=== PATIENT | male | born 1955 | race Caucasian/White ===

== ENCOUNTER 2017-02-14 02:13 | Emergency (ER) | payer MEDICARE ==
[~2017-02-14] VITALS: Ht 185.4 cm; Wt 81.8 kg
[~2017-02-14 02:13] MED LIST: ASPI-973 PO; HYD500 PO; HYDR500C2 PO; LIP40 PO; LISI-567 PO; METO50TA3 PO; MULT-896 PO; WARF5TAB7 PO; WARF7.5T4 PO
[2017-02-14 02:24] VITALS: BP 159/82; PULSE 95; RESP 16; O2SAT 100
--- NOTE | 2017-02-14 02:48 | ED.REPORT ---
HPI-Chest Pain 40 and Over Date of Service Feb 14, 2017 ED Provider: Ortega Parsons MD Patient is a 61 year old male with a history of PE on Warfarin, hypertension and CAD with stent placement who presents to the ED complaining of mid back pain onset 5 hours ago. Associated symptoms include nausea and feeling short of breath for the past two weeks. He describes the pain as stabbing and states that it feels similar to when he had his last PE. Nursing Notes Stated Complaint: POSSIBLE PULMONARY EMBOLI Chief Complaint: Respiratory Complaints Nursing Notes Reviewed: Yes Allergies: Coded Allergies: No Known Allergies (Unverified , 07/01/11) Scheduled Aspirin (Aspirin) 81 Mg Tablet 81 MG PO DAILY Atorvastatin (Lipitor) 40 Mg Tablet 40 MG PO DAILY Hydroxyurea (Hydrea) 500 Mg Capsule 500 MG PO BID MON-TUE Hydroxyurea (Hydroxyurea) 500 Mg Capsule 500 MG PO SAT AND SUN Lisinopril (Lisinopril) 20 Mg Tablet 20 MG PO DAILY Metoprolol Tartrate (Metoprolol Tartrate) 50 Mg Tablet 50 MG PO QDAY Warfarin Sodium (Warfarin Sodium) 7.5 Mg Tablet 7.5 MG PO 4 DYS A WEEK Warfarin Sodium (Warfarin Sodium) 5 Mg Tablet 5 MG PO 2DYS A WEEK Miscellaneous Medications Multivitamin W-Minerals/Lutein (Centrum Silver Ultra Men's Tab) 1 Each Tablet 1 EACH PO General Time Seen by MD: 02:42 Chief Complaint Back pain Hx Obtained From: Patient Arrived By: Walk-in Sudden in Onset?: Yes Onset Occurred: 5 - 8 hours ago Symptom Duration: Since onset Location: : Back Quality: Stabbing Radiation: : Does not radiate Severity: Current: Moderate Similar Sx Previous: Yes Past Medical History Past Medical History Notes: Medical History: 1. Myocardial infarction, status post 2 stents placed 2. Diverticulosis with one episode of diverticulitis 3 years ago 3. Frequent left shoulder dislocations, occasional right shoulder dislocations Surgical history: 1. Coronary artery stents x2 2. The patient endorses he had a "permanent valve" placed in his right femoral vein for cardiac catheter access 3. Bilateral inguinal herniorrhaphies Past Medical History 1. Coronary artery disease. 2. Angioplasty to the mid left anterior descending. 3. Angioplasty to the diagonal branch of left anterior descending. 4. Hypertension. 5. Hyperlipidemia. 6. History of smoking. 7. History of low back pain. Past Surgical History Cardiac Cath Family History noncontributory Smoking History Current Some Day Smoker Social History Alcohol Use: Denies alcohol use Drug Use: THC Ambulatory Status Independent Review of Systems Constitutional: Denies: Chills, Fever Respiratory: Reports: Shortness of breath, Denies: Non-productive cough GI: Reports: Nausea, Denies: Vomiting Musculoskeletal: Reports: Back pain Skin: Denies Itching, Denies Rash Complete sys rev & neg: except as marked. Physical Exam Initial Vital Signs Vital Signs (First) Date Time Temp Pulse Resp B/P Pulse Ox O2 Delivery O2 Flow Rate FiO2 02/14/17 02:24 36.6 95 16 159/82 100 Room Air 02/14/17 06:20 2 Initial VS: Reviewed General/Constitutional: Awake, Alert Appearance / Presentation: Positive: Uncomfortable Respiratory / Chest: Atraumatic, Breath sounds NL, Breath sounds = bilat, No respiratory distress Cardiovascular: Heart rate NL, Regular rhythm, Heart sounds NL Abdomen: Atraumatic, Soft, Non-tender Neck: Atraumatic, Supple, No JVD Lower Extremity / Pelvis / MS: Atraumatic, No swelling, Non-tender, No edema negative Jazmin's Skin: Atraumatic, Color NL, No rash, Warm, Dry Neurologic: Oriented X3, Speech NL Psychiatric: Affect NL, Mood NL Head / Eyes: Atraumatic, Normocephalic, PERRL, EOMI Interpretation & Diagnostics Lab Results Interpretation Result Diagram: 02/14/17 0230 02/14/17 0230 Test 02/14/17 02:30 White Blood Count 6.9th/mm3 (3.8-10.1) Red Blood Count 2.43mil/mm3 (4.40-5.80) Hemoglobin 9.3g/dL (13.8-17.2) Hematocrit 27.2% (41.0-50.0) Mean Corpuscular Volume 111.9fL (81-100) Mean Corpuscular Hemoglobin 38.3pg (27.0-35.0) Mean Corpuscular Hemoglobin Concent 34.2% (32.0-37.0) Red Cell Distribution Width 16.2% (12.3-15.4) Platelet Count 132bil/L (150-400) Neutrophils (%) (Auto) 56% (40-74) Lymphocytes (%) (Auto) 26% (14-46) Monocytes (%) (Auto) 9% (4-12) Eosinophils (%) (Auto) 1% (0-5) Basophils (%) (Auto) 3% (0-3) Band Neutrophils % 0% (1-5) Metamyelocytes % 0% (0-0) Myelocytes % 5% (0-0) Nucleated Red Blood Cells 3/100 WBC (0-24) Prothrombin Time 16.1sec (8.1-12.5) Prothromb Time International Ratio 1.49ratio D-Dimer < 0.50mg/L FEU (<0.50) Sodium Level 134mEq/L (134-144) Potassium Level 4.2mEq/L (3.5-5.2) Chloride Level 97mEq/L (97-108) Carbon Dioxide Level 20mmol/L (18-29) Blood Urea Nitrogen 23mg/dL (8-27) Creatinine 0.99mg/dL (0.76-1.27) Estimat Glomerular Filtration Rate 81mL/min (>59) Glucose Level 139mg/dL (60-99) Calcium Level 9.7mg/dL (8.5-10.1) Magnesium Level 1.6mg/dL (1.6-2.6) Total Bilirubin 0.4mg/dL (0.0-1.2) Aspartate Amino Transf (AST/SGOT) 11U/L (0-50) Alanine Aminotransferase (ALT/SGPT) 13U/L (0-44) Alkaline Phosphatase 92U/L (25-160) Troponin T 0.010ug/L (0.0-0.011) Total Protein 7.1g/dL (6.4-8.4) Albumin 4.1g/dL (3.4-5.0) Hold Beltre Top Tube Received (Received) Lab Results Interpretation: Mild anemia ECG Interpretation Time: 02:30 Interpreted by: ED physician Normal ECG Interpretation: Normal rate (95), Normal sinus rhythm X-Ray Chest Interpretation Chest Xray Interpretation: no acute findings Interpretation / Wet Read by: Wet read ED physician CT Chest Interpretation CONCLUSION: No evidence of PE, with limited evaluation of the distal subsegmental pulmonary artery branches. Mild centrilobular emphsema. Partial bronchiolar occulsion in the lateral right lower lobe, likely mucous plugging. Endobronchial spread of infectin is not excluded. Left periadrenal fat stranding, raising concern for acute adrenalitis. at 0501 Study type: CT pulm angiogram Interpretation / Wet Read by: Interpret - Radiologist Re-Eval/Medical Decision Med Decision/Clinical Course 61-year-old male with pleuritic chest pain that he states feels like his previous pulmonary embolism. His INR is a subtherapeutic at 1.5. His d-dimer is negative and his chest CT scan shows no evidence of PE. There are some areas of bronchial mucus plugging. He will be started on an antibiotic and discharged home to follow up with his primary doctor. Counseled Regarding: Diagnosis, Lab results Discharge & Departure Primary Impression: Back pain Back pain location: low back pain Chronicity: acute Back pain laterality: midline Sciatica presence: without sciatica Qualified Code: M54.5 - Low back pain Additional Impression: Shortness of breath Disposition: Home Discharge Condition All VS Reviewed: Yes Condition: Stable Patient Instructions: Chronic Bronchitis (ED) Additional Instructions: Your CT showed no evidence of a blood clot. There was an area of mucus which may represent bronchitis. Recommend azithromycin 500 mg today then 250 mg daily for 4 more days. Follow up with your primary care physician later this week. Return to the emergency department if you develop any new or concerning symptoms. Referrals: Jarrell Gonzalez MD (PCP) [place] Attestation Portions of this note were transcribed by Dixie Armijo. I, Dr. Parsons personally performed the history, physical exam and medical decision-making; I reviewed and confirmed the accuracy of the information in the transcribed note. Signed by: Wally Bravo, 02/14/17 copies to: Jarrell Gonzalez MD, Howard L MD Feb 14, 2017 02:47 Asha Armijo Feb 14, 2017 02:56
[2017-02-14 02:51] LABS: Mean Corpuscular Hemoglobin 38.3 pg (27.0-35.0); Mean Corpuscular Volume 111.9 fL (81-100); Platelet Count 132 bil/L (150-400)
[2017-02-14 03:07] VITALS: BP 143/79; PULSE 94; RESP 17; O2SAT 100
[2017-02-14 03:09] LABS: INR 1.49 ratio
[2017-02-14 03:17] LABS: BASOPHILS % (AUTO) 3 % (0-3); EOSINOPHILS % (AUTO) 1 % (0-5); MONOCYTES % (AUTO) 9 % (4-12); NEUTROPHILS % (AUTO) 56 % (40-74)
[2017-02-14 03:21] LABS: Magnesium 1.6 mg/dL (1.6-2.6); TROPONIN T 0.01 ug/L (0.0-0.011)
[2017-02-14] MEDS: HYDROmorphone 0.5 mg/0.5 mL iSecure Syringe IVPUSH PRN ×4 (04:02→06:21)
[2017-02-14] MEDS ORDERED: Ondansetron 2 mg/mL 2 mL Inj ONE (04:45)
[2017-02-14 04:49] VITALS: BP 110/71; PULSE 106; RESP 17; O2SAT 100
[2017-02-14] MEDS ORDERED: Ondansetron 2 mg/mL 2 mL Inj IVPUSH PRN (05:15)
[2017-02-14 06:20] VITALS: BP 136/67; PULSE 102; RESP 22; O2SAT 99
[2017-02-14] MEDS ORDERED: _Azithromycin 250 mg Tablet PO SCH (06:30)
[2017-02-14 08:03] VITALS: BP 122/60; PULSE 82; RESP 22; O2SAT 96
--- NOTE | 2017-02-14 08:19 | DRSVH ---
PROCEDURE: CT ANGIO CHEST PULMONARY EMBOLISM ([id number]) INDICATIONS: dyspnea, chest pain TECHNIQUE: After the administration of intravenous contrast, 2 mm thick sections acquired from the pulmonary [facility] [place] to the posterior costophrenic angles. 3-dimensional maximum intensity projection (MIP) coronal a nd sagittal reformats were then acquired through the thorax. For radiation dose reduction, the follo wing was used: automated exposure control, adjustment of mA and/or kV according to patient size. COMPARISON: [facility], CT, CT ABD PELVIS W CON, 05[facility]11/2015, 1:26[facility]ST PE, 05/11/2015, 1:26. FINDINGS: Image quality: Excellent. Pulmonary arteries: Pulmonary arteries are normal in size, and demonstrate no intraluminal filling d efects to suggest central pulmonary embolism. Lungs and pleura: There is moderate centrilobular emphysema. There is a 3 mm groundglass nodule in t he right lower lobe (series 5 image 31), unchanged compared to 05/11/2015. Mild bibasilar atelectasis . Lungs are otherwise clear. No pleural effusions or pneumothorax. Central and peripheral airways a re patent. Mediastinum: Heart size is normal, without pericardial effusion. No mediastinal or hilar adenopathy . Thoracic aorta is normal in caliber and enhancement. Esophagus is normal in caliber. There is a s mall hiatal hernia. Bones and chest wall: No suspicious bony lesions. Ribs and thoracic spine appear intact throughout. Thyroid gland is normal. No axillary or supraclavicular adenopathy. Abdomen: Visualized upper abdominal solid organs appear normal in the early arterial phase of enhanc ement. Mild stranding in left adrenal and superior pole of the left kidney, which is nonspecific. IMPRESSION: 1. No evidence for central pulmonary embolism. 2. Moderate centrilobular emphysema. 3. A 3 mm groundglass nodule in the right lower lobe, stable since 05/11/2015. Please recommendation for followup. 4. Small hiatal hernia. 5. Mild stranding around the left adrenal/superior pole of the left kidney. This finding is nonspecif ic. No significant discrepancy with the caustic cresylate shift superintendent radiology preliminary report. Fleischner Society criteria for SUB-SOLID lung nodule followup. Solitary pure ground-glass nodules5 mm or lessNo followup needed. >5 mm3 mo follow-up CT to confirm persistence. Then annual CT for 3 years. Part-solid nodules3 mo follow-up CT to confirm persistence . If persistent with solid component <5 mm, annual CT for at least 3 years. If solid component is 5 mm or more, biopsy or surgical resection. Consider PET-CT for lesions > 10 mm. Multiple sub-solid nodulesPure ground glass nodules [address] at 2 and 4 years. Pure ground glass nodules >5 mm without dominant lesion. [address] to confirm persistence, then annual followup CT for at least 3 years. Dominant nodule(s) with part-solid or solid component. [address] to confirm persistence. If persistent, consider biopsy or surgical resection, karsten if lesions have >5 m m solid component. Dictated by: Jose Regan M.D. on 02/14/2017 at 8:07 Transcribed by: [place] on 02/14/2017 at 8:19 Approved by: Jose Regan M.D. on 02/14/2017 at 11:02
--- NOTE | 2017-02-14 14:43 | DRSVH ---
PROCEDURE: X-RAY CHEST ONE VIEW, PORTABLE ([id number]) INDICATIONS: sob TECHNIQUE: One view of the chest was acquired. COMPARISON: [facility], CR, XR CHEST 1VW (PORTABLE), 06/15/2015, 18:22. FINDINGS: Surgical changes and devices: None. Lungs and pleura: No pleural effusions or pneumothorax. Lungs are clear. Lung volumes are increase d with flattening of the hemidiaphragms suggesting COPD. Mediastinum: Mediastinal contours appear normal. Heart size is normal. Bones and chest wall: No suspicious bony lesions. Overlying soft tissues appear unremarkable. IMPRESSION: No acute cardiopulmonary disease. Dictated by: [facility] Interpreted: Carson Vance MD on 02/14/2017 at 9:37 Approved by: Carson Vance M.D. on 02/14/2017 at 14:41
[2017-02-15] MEDS ORDERED: MULT-1073 PO (09:09)
[2017-02-15] MEDS ORDERED: VIT1TABL83 PO (09:09)
[2017-02-15] MEDS ORDERED: GRAP50CA5 PO (09:09)
[2017-02-15] MEDS ORDERED: ASTR1POW PO (09:09)
== END 2017-02-14 08:13 | disposition home or self-care (01) ==
LOC: SED 02:13
DX: M54.5 Low back pain (principal); R06.02 Shortness of breath; R07.81 Pleurodynia; I25.10 Atherosclerotic heart disease of native coronary artery without angina pectoris; E78.5 Hyperlipidemia, unspecified; I10 Essential (primary) hypertension; F12.10 Cannabis abuse, uncomplicated; F17.210 Nicotine dependence, cigarettes, uncomplicated; Z95.5 Presence of coronary angioplasty implant and graft; Z86.711 Personal history of pulmonary embolism; Z87.19 Personal history of other diseases of the digestive system
CPT/HCPCS: 71010; 71275; 80053; 83735; 84484; 85025; 85378; 85610; 93005; 96374; 96375; 96376; 99285; J1170; J2060; J2405; Q9967

== ENCOUNTER 2017-02-15 00:03 | Inpatient (IN) | payer MEDICARE ==
[~2017-02-15] VITALS: Ht 182.9 cm; Wt 89.2 kg
[2017-02-15] VITALS (12 sets, daily range): BP systolic 131–171; BP diastolic 74–109; PULSE 74–111; RESP 16–22; O2SAT 96–100
[2017-02-15] MEDS ORDERED: 0.9% Sodium Chloride 1,000 ML IV ONE (00:23)
--- NOTE | 2017-02-15 00:23 | ED.REPORT ---
HPI-Back Pain 40 and Over Date of Service Feb 15, 2017 ED Provider: Dr. Reynolds Pt is a 61 year old male with a hx of PEs who presents to the ED with severe back pain. He reports that he was seen in the ED yesterday morning, and was diagnosed with a respiratory infection and discharged with antibiotics. Pt reports that he has had no relief, and is in continued pain. He reports that was seen by his primary care provider yesterday for his continued pain, but was not given any additional pain medication. He denies any chest pain, shortness of breath, nausea, vomiting, diarrhea, or any other complaints. The pain in his back does not hurt with palpation or deep breathing. Nursing Notes Stated Complaint: BACK PAIN Chief Complaint: Back Pain or Injury Nursing Notes Reviewed: Yes Allergies: Coded Allergies: No Known Allergies (Unverified , 07/01/11) Scheduled Aspirin (Aspirin) 81 Mg Tablet 81 MG PO DAILY Atorvastatin (Lipitor) 40 Mg Tablet 40 MG PO DAILY Hydroxyurea (Hydrea) 500 Mg Capsule 500 MG PO BID MON-TUE Hydroxyurea (Hydroxyurea) 500 Mg Capsule 500 MG PO SAT AND SUN Lisinopril (Lisinopril) 20 Mg Tablet 20 MG PO DAILY Metoprolol Tartrate (Metoprolol Tartrate) 50 Mg Tablet 50 MG PO QDAY Warfarin Sodium (Warfarin Sodium) 7.5 Mg Tablet 7.5 MG PO 4 DYS A WEEK Warfarin Sodium (Warfarin Sodium) 5 Mg Tablet 5 MG PO 2DYS A WEEK Miscellaneous Medications Multivitamin W-Minerals/Lutein (Centrum Silver Ultra Men's Tab) 1 Each Tablet 1 EACH PO General Time Seen by MD: 00:23 Chief Complaint Back pain Hx Obtained From: Patient Arrived By: Walk-in Sudden in Onset?: Yes Onset Occurred: 3 days ago Symptom Duration: Since onset Quality: Painful Severity: Current: Moderate Severity: Maximum: Severe Similar Sx Previous: Yes Past Medical History Past Medical History Notes: Medical History: 1. Myocardial infarction, status post 2 stents placed 2. Diverticulosis with one episode of diverticulitis 3 years ago 3. Frequent left shoulder dislocations, occasional right shoulder dislocations Surgical history: 1. Coronary artery stents x2 2. The patient endorses he had a "permanent valve" placed in his right femoral vein for cardiac catheter access 3. Bilateral inguinal herniorrhaphies Past Medical History 1. Coronary artery disease. 2. Angioplasty to the mid left anterior descending. 3. Angioplasty to the diagonal branch of left anterior descending. 4. Hypertension. 5. Hyperlipidemia. 6. History of smoking. 7. History of low back pain. Past Surgical History Cardiac Cath Family History noncontributory Smoking History Current Some Day Smoker Social History Alcohol Use: Denies alcohol use Drug Use: THC Ambulatory Status Independent Review of Systems Constitutional: Denies: Chills, Fever, Malaise, Weakness - generalized Respiratory: Denies: Non-productive cough, Shortness of breath, Wheezing Cardiovascular: Denies: Chest pain, Syncope GI: Denies: Abdominal pain, Diarrhea, Nausea, Vomiting Male: Denies Dysuria, Denies Flank pain Musculoskeletal: Reports: Back pain, Denies: Extremity pain, Neck pain Neurologic: Denies: Change LOC, Dizziness, Headache, Syncope, Weakness Complete sys rev & neg: except as marked. Physical Exam Initial Vital Signs Vital Signs (First) Date Time Temp Pulse Resp B/P Pulse Ox O2 Delivery O2 Flow Rate FiO2 02/15/17 00:07 36.7 111 22 131/80 99 Room Air Initial VS: Reviewed Head / Eyes: Atraumatic, Normocephalic, PERRL ENT: Mucous membranes moist, Conjunctiva normal, No scleral icterus Neck: Supple, Non-tender, Full range of motion Skin: Warm, Dry, No cyanosis General/Constitutional: Awake, Alert Distress / Hydration: Positive: Distress moderate Appearance / Presentation: Positive: Uncomfortable Writhing Respiratory / Chest: Atraumatic, Breath sounds NL, Breath sounds = bilat, No respiratory distress Cardiovascular: Heart rate NL, Regular rhythm, Heart sounds NL, No gallop Abdomen: Atraumatic, Soft, Non-tender Back: Atraumatic, Inspection NL Neurologic: Oriented X3, Speech NL, No sensory deficits, CN II - XII intact Interpretation & Diagnostics Lab Results Interpretation Result Diagram: 02/15/174 02/15/174 Test 02/15/17 00:54 White Blood Count 6.4th/mm3 (3.8-10.1) Red Blood Count 2.19mil/mm3 (4.40-5.80) Hemoglobin 8.3g/dL (13.8-17.2) Hematocrit 24.4% (41.0-50.0) Mean Corpuscular Volume 111.4fL (81-100) Mean Corpuscular Hemoglobin 37.9pg (27.0-35.0) Mean Corpuscular Hemoglobin Concent 34.0% (32.0-37.0) Red Cell Distribution Width 16.1% (12.3-15.4) Platelet Count 117bil/L (150-400) Neutrophils (%) (Auto) 66% (40-74) Lymphocytes (%) (Auto) 18% (14-46) Monocytes (%) (Auto) 11% (4-12) Eosinophils (%) (Auto) 0% (0-5) Basophils (%) (Auto) 1% (0-3) Band Neutrophils % 4% (1-5) Hematology Comments Wbc Prothrombin Time 16.5sec (8.1-12.5) Prothromb Time International Ratio 1.53ratio Sodium Level 139mEq/L (134-144) Potassium Level 3.8mEq/L (3.5-5.2) Chloride Level 101mEq/L (97-108) Carbon Dioxide Level 20mmol/L (18-29) Blood Urea Nitrogen 18mg/dL (8-27) Creatinine 0.91mg/dL (0.76-1.27) Estimat Glomerular Filtration Rate 90mL/min (>59) Glucose Level 129mg/dL (60-99) Lactic Acid Level 1.3mmol/L (0.4-2.0) Calcium Level 9.6mg/dL (8.5-10.1) Magnesium Level 1.6mg/dL (1.6-2.6) Total Bilirubin 0.4mg/dL (0.0-1.2) Aspartate Amino Transf (AST/SGOT) 16U/L (0-50) Alanine Aminotransferase (ALT/SGPT) 12U/L (0-44) Alkaline Phosphatase 88U/L (25-160) Troponin T 0.010ug/L (0.0-0.011) Total Protein 7.0g/dL (6.4-8.4) Albumin 3.9g/dL (3.4-5.0) ECG Interpretation ECG Interpretation: SR - 98 Q waves in V1 and V2 Unchanged from prior Time: 00:47 Interpreted by: ED physician Normal ECG Interpretation: No acute ischemic changes Re-Eval/Medical Decision Med Decision/Clinical Course SIgnificant flank pain. Will proceed to ct scan if labs look good. CAre endorsed to Dr. Parsons at 02:00 Source of Hx: Old records Counseled Regarding: Diagnosis, Lab results, When/why to return to ED Discharge & Departure Shift Change Sign-Out Patient Care Transferred: Yes (Dr Parsons) Discussed Complaint(s): Yes Laboratory Evaluation: Ordered, not yet done Imaging Studies: Ordered, not yet done Response to Therapy: Improved Impression: Primary Impression: Flank pain, acute Disposition: Home Discharge Condition All VS Reviewed: Yes Condition: Stable Referrals: Jarrell Gonzalez MD (PCP) Scribe Attestation Portions of this note were transcribed by Audrey Hernandez. I, Dr. Reynolds personally performed the history, physical exam and medical decision-making; I reviewed and confirmed the accuracy of the information in the transcribed note. Signed by: Wally Brown, 02/15/2017 [Time]. copies to: Jarrell Gonzalez MD, Todd P DO Feb 15, 2017 00:23 YEFRI HERNANDEZ Feb 15, 2017 00:37
[2017-02-15] MEDS ORDERED: Ondansetron 2 mg/mL 2 mL Inj IVPUSH PRN ×2 (00:45→04:35)
[2017-02-15 00:57] LABS: Mean Corpuscular Hemoglobin 37.9 pg (27.0-35.0); Mean Corpuscular Volume 111.4 fL (81-100); Platelet Count 117 bil/L (150-400)
[2017-02-15] MEDS: HYDROmorphone 0.5 mg/0.5 mL iSecure Syringe IVPUSH PRN ×4 (00:57→04:21)
[2017-02-15 01:13] LABS: INR 1.53 ratio
[2017-02-15 01:36] LABS: Magnesium 1.6 mg/dL (1.6-2.6); TROPONIN T 0.01 ug/L (0.0-0.011)
[2017-02-15] MEDS ORDERED: Iohexol 300 mg/mL 30 mL Inj PO ONE (01:40)
[2017-02-15 01:41] LABS: BASOPHILS % (AUTO) 1 % (0-3); EOSINOPHILS % (AUTO) 0 % (0-5); MONOCYTES % (AUTO) 11 % (4-12); NEUTROPHILS % (AUTO) 66 % (40-74)
[2017-02-15 03:24] LABS: APPEARANCE,URINE HAZY (CLEAR,HAZY); COLOR,URINE YELLOW (YELLOW); OCCULT BLOOD,URINE TRACE (NEGATIVE); UROBILINOGEN,URINE NORMAL (NORMAL)
[2017-02-15] MEDS ORDERED: Alum-Mag Hydrox-Simeth 30 mL Suspension PO PRN (04:35)
--- NOTE | 2017-02-15 05:03 | PCM.HPMED ---
Subjective Date of Service Feb 15, 2017 Primary Provider: Admitting Physician: Deyanira Lehman DO Primary Care Physician: Jarrell Gonzalez MD Attending Physician: Deyanira Lehman DO Admit Status: From the Emergency Department Chief Complaint: Back Pain History of Present Illness: Mr. Lay is a 61-year-old male with a prior medical history significant for pulmonary embolisms, CAD with 2 stents, hypertension, hyperlipidemia, and a myeloproliferative disorder who presented to the emergency department with ongoing back pain. He reports the pain started about 2 weeks ago and has gotten steadily worse. The pain is similar to when he had his previous PE, a constant sharp pain that does not seem to radiate elsewhere. He says the medication he received in the ED helped, but that changing positions or movements make it worse. He was seen today by his PCP Dr. Gonzalez, as well as in the [facility], where he was prescribed tramadol, but this has not helped. He endorses some nausea, but denies any chest pain, shortness of breath, vomiting, headache, pain on inspiration, or any change in bowel or bladder habits. Of note the patient was seen yesterday in the ED for similar complaints. A CT angiogram of the chest revealed no evidence of PE, but some stranding around the left adrenal gland. Review of Systems: A complete review of systems was obtained and negative except as in the above history of present illness Allergies Coded Allergies: No Known Allergies (Unverified , 07/01/11) Home Medications Aspirin (Aspirin) 81 Mg Tablet 81 MG PO DAILY Atorvastatin (Lipitor) 40 Mg Tablet 40 MG PO DAILY Hydroxyurea (Hydrea) 500 Mg Capsule 500 MG PO BID MON-TUE Hydroxyurea (Hydroxyurea) 500 Mg Capsule 500 MG PO SAT AND SUN Lisinopril (Lisinopril) 20 Mg Tablet 20 MG PO DAILY Metoprolol Tartrate (Metoprolol Tartrate) 50 Mg Tablet 50 MG PO QDAY Warfarin Sodium (Warfarin Sodium) 7.5 Mg Tablet 7.5 MG PO 4 DYS A WEEK Warfarin Sodium (Warfarin Sodium) 5 Mg Tablet 5 MG PO 2DYS A WEEK Multivitamin W-Minerals/Lutein (Centrum Silver Ultra Men's Tab) 1 Each Tablet 1 EACH PO PMH Coronary artery disease. Angioplasty to the mid left anterior descending. Angioplasty to the diagonal branch of left anterior descending. Hypertension. Hyperlipidemia. Low Back Pain Right Shoulder Dislocations Surgical History Coronary artery stents x2 Bilateral inguinal hernia repair Family History CAD Social History Hx Alcohol Use: Yes (freq) Hx Substance Use: Yes (Occasional marijuana) Hx Tobacco Use: Yes (2 cigarettes a day) Smoking Status: Current Some Day Smoker Living Arrangement: with Family Exam Vital Signs Vital Sign - Last Date Time Temp Pulse Resp B/P Pulse Ox O2 Delivery O2 Flow Rate FiO2 02/15/17 04:06 86 16 156/90 100 Room Air 02/15/17 00:07 36.7 Intake and Output 02/14/17 02/14/17 02/15/17 Cumulative From/Thru 15:00 23:00 07:00 02/15/17 00:07 - 02/15/17 00:59 Intake Total 1000 ml 1000 ml Balance 1000 ml 1000 ml Intake IV Total 1000 ml 1000 ml Exam Gen.: Restless elderly gentleman in no acute distress HEENT: NCAT, PERRLA, EOMI. Membranes pink but somewhat dry. No exudate or cobblestoning present. Neck: Supple, no JVD or thyromegaly. CV: Tachycardic in normal sinus rhythm. No murmurs, rubs, gallops. Distal pulses intact bilaterally. Pulmonary: Clear to auscultation bilaterally, no wheezes, rales, rhonchi. Abdominal: Soft, nontender non-distended. No guarding, rebound. Left flank is not tender to palpation without signs of trauma. Extremities: Distal pulses intact bilaterally. No cyanosis, clubbing, edema. MSK: No tenderness to palpation along his entire spine. Straight leg test negative. There are no signs of trauma. Neuro: A&Ox3. CN II through XII intact. Muscle strength 5 out of 5 in all extremities without focal deficit. Psych: Patient is somewhat anxious, jumping from topic to topic during our discussion but otherwise conversing appropriately. Lab and Diagnostics Result Diagram: 02/15/174 02/15/1753 X-Rays, CTs and MRIs CT Abdomen 02/15/17 CONCLUSION: Acute left adrenal hematoma measuring 2.7 x 4 x 4 cm with mild surrounding stranding. Normal right adrenal gland. Mild diverticulosis without diverticulitis. Transmitted to the ED at 03:14 by Silvio Jimenez M.D Assessment & Plan Mr. Lay is a 61-year-old male with a prior medical history significant for pulmonary embolism, CAD with 2 stents, hypertension, hyperlipidemia, and a myeloproliferative disorder who presented to the emergency department with ongoing back pain. Left adrenal hematoma with possible ongoing bleed, present on admission. Acute. Ongoing. - Patient had CT yesterday which showed left adrenal fat stranding, but now shows a 2.7 x4 x 4 cm hematoma in the region - Patient does not appear to be in adrenal insufficiency; there is no hyperpigmentation, hypotension, hyperkalemia, or hyponatremia present - Consider serum cortisol and ACTH measurement if he develops any of the above ( unlikely in unilateral hemorrhage) - H&H was 9.3/27.2 in the ED yesterday; is now 8.3/24.4 - Repeat H&H ordered; continue trending if continues to fall - Typed and crossed for 1 unit PRBC in ED - Holding aspirin, warfarin at this time. No heparin/Lovenox DVT prophylaxis ordered. - Monitor CMP for hyperkalemia and hyponatremia - Consider repeat imaging if H&H continues to fall Left Flank Pain, present on admission. Acute. Ongoing. - Likely due to hematoma as above, as this is the region he points to on exam - Hydrocodone 5-325 every 4 hours as needed, with 0.5-1 mg Dilaudid for breakthrough pain Myeloproliferative disorder, present on admission. Chronic. - Patient followed by Dr. Nieves - Continue home hydroxyurea regimen Hypertension, present on admission. Chronic. - Continue lisinopril 20 mg daily - Continue metoprolol tartrate 50 mg daily Hyperlipidemia, present on admission. Chronic. - Patient has had 2 stents placed (LAD, diagonal) - Continue atorvastatin 40 mg daily Acetaminophen as needed for mild pain, fever, headache. Bowel regimen as needed. Zofran as needed for nausea. Subcutaneous heparin held at this time. Patient status: Patient was admitted under observation status for length of stay likely <2 midnights due to severity of presenting symptoms, medical workup , and response to treatment plan. VTE Mechanical Devices: Intermittant Pneumatic CD Resuscitation Status: CPR: Attempt Resuscitation Attending Statement The patient was seen and examined together with house staff on 02/15/2017 and I agree with the history, exam and plan as outlined in the note above. Edgar Beltran DO Feb 15, 2017 05:03 Deyanira Lehman DO Feb 15, 2017 05:44
--- NOTE | 2017-02-15 06:14 | NUR ---
Admit Pt arrived on [facility] floor. Reports of Left sided sharp flank pain 12/04. States that pain has been relieved in the ED. Denies chest pain, sob, n/v or abd discomfort. Pt's VSS and has been afebrile. Continuing to monitor.
[2017-02-15 06:51] LABS: BASOPHILS % (AUTO) 1.3 % (0-3); EOSINOPHILS % (AUTO) 0.4 % (0-5); MONOCYTES % (AUTO) 17.4 % (4-12); Mean Corpuscular Hemoglobin 37.4 pg (27.0-35.0); Mean Corpuscular Volume 113.1 fL (81-100); NEUTROPHILS % (AUTO) 57.2 % (40-74); Platelet Count 96 bil/L (150-400)
[2017-02-15] MEDS: HYDROmorphone 1 mg/mL Inj IVPUSH PRN ×4 (07:59→21:32)
--- NOTE | 2017-02-15 08:56 | NUR ---
Social Work-initial assessment/ readiness for discharge: Data:See initial assessment. Pt is a 61 y/o male who was admitted on 02/15/17 for L adrenal hemorrhage per H&P. Pt's insurance is [facility] and PCP is Jarrell Gonzalez MD. EMR reviewed. SW met with pt at bedside, SW role explained. Pt is alert and oriented x3. Pt resides at home with his friend Nasrin in [place] where he remains independent with ADLS. Pt drives and does not use any DME at baseline. Pt has no HH or SNF history. Pt has no assisted care insurance or VA benefits. SW discussed DPOA/advanced directive, pt declining any information at this time. Pt discussed with RN and MD, no concerns around pt's capacity for self care, pt has been up independent in his room. SW provided pt with discharge planning checklist booklet and encouraged him to call with any questions,phone number provided on white board. Pt confirms his friend Nasrin will provide transport home. No anticipated discharge needs. SW will continue to follow if needs arise. Assessment;Pt who is independent at baseline. Plan:Pt to discharge home when medically stable via POV. No anticipated discharge needs. SW will continue to follow if needs arise. ALISE Mir Addendum: 02/15/17 at 0900 by TREVOR SANTIZO Amended: Links added.
--- NOTE | 2017-02-15 09:05 | DRSVH ---
PROCEDURE: CT ABDOMEN AND PELVIS WITH CONTRAST ([id number]) INDICATIONS: left flank pain TECHNIQUE: After the administration of oral and intravenous contrast, 5 mm thick sections acquired from the diap hragms to the symphysis. 5 mm thick coronal and sagittal reformats were performed. For radiation do se reduction, the following was used: automated exposure control, adjustment of mA and/or kV accordi ng to patient size. COMPARISON: [facility], CT, CT ABD PEL[facility] W CON[facility] 05[facility]11[facility]2015[facility], 02/14/2017, 4:15. FINDINGS: Image quality: Excellent. ABDOMEN: Lung bases: Lung bases are clear. Heart size is normal. Solid organs: Liver and spleen are normal in size and enhancement. Gallbladder is within normal khan its with some excretion of the venous contrast causing increased density.. Biliary system is non-dil ated. Pancreas enhances normally. The right adrenal gland is normal. Left adrenal gland is signific antly enlarged with density of approximately 57 Hounsfield units consistent with hemorrhagic change w ithin the left adrenal gland. The size of the left adrenal gland is approximately 4 x 4 by 2-1/2 cm. There is some stranding around this. Because of the relatively abrupt change since the previous CT sc an and lack of peripheral contrast enhancement this is unlikely to be adrenal abscess. Kidneys are no rmal in size and enhancement, without hydronephrosis. Peritoneum and bowel: Stomach, small bowel, and colon loops are normal in caliber and wall thickness . No free fluid or air. Normal appendix multiple colonic diverticula but no inflammation identified . Nodes and vessels: No retroperitoneal or mesenteric adenopathy. Aorta and inferior vena cava are no rmal in caliber. The atherosclerotic calcification and ectasia of the aorta and iliac vessels. Miscellaneous: No ventral hernias. PELVIS: Genitourinary: Bladder wall thickness is normal. Miscellaneous: No inguinal hernias or adenopathy. Bones: No suspicious bony lesions. No vertebral body compression fractures. IMPRESSION: 1. Acute left adrenal change most consistent with hemorrhagic change. Right adrenal is normal. 2. Ectasia and atherosclerosis of the aorta or to and iliac vessels. Colonic diverticula primarily sigmoid. Dictated by: Jonatan Hdz M.D. on 02/15/2017 at 8:48 this report corresponds to the findings of the preliminary NSR report. Approved by: Jonatan Hdz M.D. on 02/15/2017 at 9:03
[2017-02-15] MEDS ORDERED: ASTR1POW PO (09:09)
[2017-02-15] MEDS ORDERED: VIT1TABL83 PO (09:09)
[2017-02-15] MEDS ORDERED: GRAP50CA5 PO (09:09)
[2017-02-15] MEDS ORDERED: MULT-1073 PO (09:09)
--- NOTE | 2017-02-15 10:49 | PCM.PNMED ---
Subjective Date of Service Feb 15, 2017 Subjective Pt reports Left Flank plain. Exam Vital Signs Vital Sign - Last Date Time Temp Pulse Resp B/P Pulse Ox O2 Delivery O2 Flow Rate FiO2 02/15/17 10:42 95 02/15/17 05:03 36.7 18 171/109 96 Room Air Intake and Output 02/14/17 02/14/17 02/15/17 Cumulative From/Thru 15:00 23:00 07:00 02/15/17 00:07 - 02/15/17 06:11 Intake Total 1020 ml 1020 ml Balance 1020 ml 1020 ml Intake IV Total 1020 ml 1020 ml Exam Gen.: Restless elderly gentleman in no acute distress HEENT: NCAT, PERRLA, EOMI. Membranes pink but somewhat dry. No exudate or cobblestoning present. Neck: Supple, no JVD or thyromegaly. CV: Tachycardic in normal sinus rhythm. No murmurs, rubs, gallops. Distal pulses intact bilaterally. Pulmonary: Clear to auscultation bilaterally, no wheezes, rales, rhonchi. Abdominal: Soft, nontender non-distended. No guarding, rebound. Left flank is not tender to palpation without signs of trauma. Extremities: Distal pulses intact bilaterally. No cyanosis, clubbing, edema. MSK: No tenderness to palpation along his entire spine. Straight leg test negative. There are no signs of trauma. Neuro: A&Ox3. CN II through XII intact. Muscle strength 5 out of 5 in all extremities without focal deficit. Psych: Patient is somewhat anxious, jumping from topic to topic during our discussion but otherwise conversing appropriately. IVs and Medications Medications Reviewed: Medications were reviewed in detail Lab and Diagnostics Result Diagram: 02/15/1762402/15/17624 X-Rays, CTs and MRIs CT Abdomen 02/15/17 CONCLUSION: Acute left adrenal hematoma measuring 2.7 x 4 x 4 cm with mild surrounding stranding. Normal right adrenal gland. Mild diverticulosis without diverticulitis. Transmitted to the ED at 03:14 by Silvio Jimenez M.D Assessment & Plan Mr. Lay is a 61-year-old male with a prior medical history significant for pulmonary embolism, CAD with 2 stents, hypertension, hyperlipidemia, and a myeloproliferative disorder who presented to the emergency department with ongoing back pain. Left adrenal hematoma with possible ongoing bleed, present on admission. Acute. Ongoing. - Patient had CT yesterday which showed left adrenal fat stranding, but now shows a 2.7 x4 x 4 cm hematoma in the region - Patient does not appear to be in adrenal insufficiency; there is no hyperpigmentation, hypotension, hyperkalemia, or hyponatremia present - Consider serum cortisol and ACTH measurement if he develops any of the above ( unlikely in unilateral hemorrhage) - H&H was 9.3/27.2 in the ED yesterday; is now 8.3/24.4 - Repeat H&H ordered; 02/15- ordered for 1 u, Repeat post-transfusion. - Holding aspirin, warfarin at this time. No heparin/Lovenox DVT prophylaxis ordered. - Consider repeat imaging if H&H continues to fall, Pt could get a CTA. Left Flank Pain, present on admission. Acute. Ongoing. - Likely due to hematoma as above, as this is the region he points to on exam - Hydrocodone 5-325 every 4 hours as needed, with 0.5-1 mg Dilaudid for breakthrough pain Myeloproliferative disorder, present on admission. Chronic. - Patient followed by Dr. Nieves - Continue home hydroxyurea regimen Hypertension, present on admission. Chronic. - Continue lisinopril 20 mg daily - Continue metoprolol tartrate 50 mg daily Hyperlipidemia, present on admission. Chronic. - Patient has had 2 stents placed (LAD, diagonal) - Continue atorvastatin 40 mg daily Acetaminophen as needed for mild pain, fever, headache. Bowel regimen as needed. Zofran as needed for nausea. Subcutaneous heparin held at this time. Patient status: Patient upgraded to inpatient status for length of stay likely > 2 midnights due to severity of presenting symptoms, medical workup, and response to treatment plan. VTE Mechanical Devices: Intermittant Pneumatic CD Resuscitation Status: CPR: Attempt Resuscitation Otoniel Guerrero MD Feb 15, 2017 10:49
--- NOTE | 2017-02-15 10:56 | NUR ---
Case Management: [facility] delivered and explained to patient. Signed original placed in chart. Copy left at bedside. Cary Christopher RN
[2017-02-15 11:02] LABS: EOSINOPHILS % (AUTO) 0.5 % (0-5); Mean Corpuscular Hemoglobin 37.7 pg (27.0-35.0); Mean Corpuscular Volume 113.7 fL (81-100)
[2017-02-15 11:05] LABS: BASOPHILS % (AUTO) 1.6 % (0-3); MONOCYTES % (AUTO) 16.6 % (4-12); Platelet Count 99 bil/L (150-400)
[2017-02-15] MEDS: HYDROcodone-APAP 5-325 mg Tablet PO PRN ×3 (11:22→19:47)
[2017-02-15] MEDS: 0.9% Sodium Chloride 250 ML IV SCH (15:45)
--- NOTE | 2017-02-15 16:00 | NUR ---
Vtach Pt had 10 beats of Vtach. notified. Pt was sleeping and asymptomatic when checked by this RN
--- NOTE | 2017-02-15 17:40 | NUR ---
Pain Pt c/o 9/10 abd and left flank pain. Pt would continuously rock back and forth. Administered 1 mg Dilaudid IVP Q4, which patient stated temporarily relieved his pain down to a 5/10, and then staggered it with 10 oxycodone. Pt stated that after a few doses of pain medications that his pain was better and did not exceed a 7/10.
--- NOTE | 2017-02-15 18:26 | NUR ---
Blood Transfusion Transfused pt with one unit of PRBC. No transfusion reactions.
--- NOTE | 2017-02-15 18:33 | CCS NOTE ---
[facility] [address] [place] [id number] MEDICAL ONCOLOGY OFFICE NOTE PATIENT: TRISTAN CAZARES : 1955 MR#: [id number] DATE: 02/15/2017 JOB ID: [id number] DATE: 02/15/2017 HISTORY OF PRESENT ILLNESS: The patient is a 61-year-old gentleman whom I saw last two months ago in followup in the clinic for his myeloproliferative disorder on December 14, 2016. He has a JAK2 mutation positive myelofibrosis/myeloid metaplasia presenting in May 2015 with a pulmonary embolism and a platelet count of 688 and a white count of 31,000 and a normal hemoglobin. Diagnosis was confirmed with a bone marrow biopsy. At that time, he also had a PE as well as an intracardiac thrombus. He has been started on hydroxyurea to suppress his thrombocytosis and is on anticoagulation with warfarin managed through his primary care, Dr. Gonzalez. He had an excellent response to hydroxyurea with normalization of his platelet count in the order of 200,000 as well as his white count in the order of 6000 when I saw him last in November. He has been admitted with several days of nonresolving severe left flank pain. He has gone to multiple offices and emergency rooms over the past two days between emergency department here on February 14, then to his primary care and then ED of [facility] in [place]. They thought that he might either have a urinary tract infection or musculoskeletal back pain, but the pain was very severe and nonresolving. He drove himself back to the ED yesterday where a CT of the abdomen and pelvis was performed showing an acute left adrenal fullness radiographically consistent with hemorrhage given the Hounsfield units of 57 over a surface of 4 cm in the left adrenal gland. There was no obstructing kidney stone. The day before, he has had a CT angio of the chest to rule out PE that was negative and CT angio of the chest that did not call the adrenal issue. Upon presentation, he has had a drop of hemoglobin to around 8 from previously 12.5 when I saw him in November consistent with hemorrhage. His white count is 6.4 and platelet count upon presentation was 132. Interestingly, his INR was not supratherapeutic and it was only 1.5 with a negative D-dimer speaking against DIC. Creatinine and LFTs were normal. He has had a recent echocardiogram that I had ordered a couple of months ago that showed resolution of the previous intracardiac thrombus. He has chronic LV dysfunction with an ejection fraction of 35%. EXAMINATION: On exam, he is in no apparent distress but is somewhat uncomfortable due to the pain in the left flank area. Abdomen is nontender. No excessive bruising. Vitals stable. No swelling in his extremities. ASSESSMENT AND PLAN: A 61-year-old gentleman with left ventricular dysfunction with a chronic ejection fraction around 35% and prior history of pulmonary embolism and intracardiac thrombus in May 2015 when he presented with thrombocytosis which led to finding of a myeloproliferative disorder, as described above. He had an intracardiac thrombus that has resolved and has been on anticoagulation since then. His thrombocytosis and leukocytosis has been managed with hydroxyurea at 500 mg twice daily on Mondays through Fridays, and one tablet daily on the weekends. He was also on low-dose aspirin, lisinopril, metoprolol and atorvastatin. He is admitted with left flank pain and cumbersome visits to several healthcare facilities since two days ago that eventually led to the finding of the source of this issue which was a hemorrhage in his left adrenal gland. Interestingly, his platelet count was not particularly low with 130 and his INR was actually not therapeutic even with 1.5. He does not recall any trauma, and it is certainly unusual that he had this spontaneous bleeding with these numbers. There is no evidence of DIC either with a negative D-dimer. I discussed with the hospitalist team that at this point I agree with holding anticoagulation given the fact that the clotting issues are now close to two years ago and with active hemorrhage his warfarin can be held. Given the severe anemia that is new, I also suggest to hold hydroxyurea for a couple of weeks to allow better recovery from the hemorrhage. Most likely, we will resume hydroxyurea as an outpatient in the next few weeks. I suggest to monitor his retroperitoneal area with ultrasound to rule out active ongoing hemorrhage and transfuse him with 2 units of packed red cells given his anemia and cardiac dysfunction. His pain might be due to the swelling and distention of the adrenal area and additional low-dose steroids might help with an anti-inflammatory component.
[2017-02-15] MEDS: Polyethylene Glycol (PEG) 17 Gm Powder PO PRN (19:51)
[2017-02-15 20:11] LABS: Mean Corpuscular Volume 109.2 fL (81-100); Platelet Count 84 bil/L (150-400)
[2017-02-15 20:50] LABS: BASOPHILS % (AUTO) 0 % (0-3); EOSINOPHILS % (AUTO) 2 % (0-5); MONOCYTES % (AUTO) 4 % (4-12); NEUTROPHILS % (AUTO) 56 % (40-74)
[2017-02-16] VITALS (8 sets, daily range): BP systolic 112–142; BP diastolic 68–79; PULSE 74–104; RESP 16–20; O2SAT 96–98
[2017-02-16] MEDS: HYDROcodone-APAP 5-325 mg Tablet PO PRN ×4 (00:17→18:18)
[2017-02-16] MEDS: HYDROmorphone 1 mg/mL Inj IVPUSH PRN ×2 (03:45→08:48)
--- NOTE | 2017-02-16 06:49 | NUR ---
Pain Pt c/o of flank 5-02/03 pain given alternate Dilaudid 1mg and [place] x 2 tabs, which was helpful. Pt able to ambulate in the hallway independently without issues noted. Care continues. Addendum: 02/16/17 at 0652 by ELIZABETH LOVE RN SR hr 75 per soil conservation technician.
[2017-02-16 09:19] LABS: Mean Corpuscular Hemoglobin 37.1 pg (27.0-35.0); Mean Corpuscular Volume 107.9 fL (81-100); Platelet Count 90 bil/L (150-400)
[2017-02-16 09:41] LABS: INR 1.5 ratio
[2017-02-16 09:58] LABS: BASOPHILS % (AUTO) 2 % (0-3); EOSINOPHILS % (AUTO) 0 % (0-5); MONOCYTES % (AUTO) 10 % (4-12); NEUTROPHILS % (AUTO) 60 % (40-74)
[2017-02-16] MEDS: 0.9% Sodium Chloride 250 ML IV SCH (10:55)
--- NOTE | 2017-02-16 11:54 | DRSVH ---
PROCEDURE: US ABDOMEN, LIMITED ([id number]) INDICATIONS: r/o RP bleeding TECHNIQUE: Real-time focused scanning was performed of the abdomen, with image documentation. COMPARISON: [facility], CT, CT ANGIO CHEST PE, 02/14/2017, 4:15. [facility], CT, CT ABD PELVIS W CON, 02/15/2017, 2:54. FINDINGS: A previously present left adrenal "mass" seen on CT scanning 02/15/17 was not present on CT scanning one day earlier but slight stranding in that area was. This appears to represent a adrenal hematoma, without extension, and the actual size by current ultrasound is smaller measuring 2.5 x 2.3 x 2.2 cm. IMPRESSION: Resolving left adrenal hemorrhage, no sign of extension of the left adrenal hematoma else where. Dictated by: Carson Vance M.D. on 02/16/2017 at 11:49 Approved by: Carson Vance M.D. on 02/16/2017 at 11:53
--- NOTE | 2017-02-16 14:23 | PCM.PNMED ---
Subjective Date of Service Feb 16, 2017 Subjective pt remained stable, c/o lt flank pain 5/10 denied n/v BP stable, afebrile. awaits labs this AM, US of RP cavity Exam Vital Signs Vital Sign - Last Date Time Temp Pulse Resp B/P Pulse Ox O2 Delivery O2 Flow Rate FiO2 02/16/17 05:06 36.2 74 16 142/68 97 Room Air Intake and Output 02/15/17 02/15/17 02/16/17 Cumulative From/Thru 15:00 23:00 07:00 02/15/17 00:07 - 02/16/17 06:02 Intake Total 1294 ml 200 ml 2514 ml Balance 1294 ml 200 ml 2514 ml Intake Oral 522 ml 200 ml 722 ml IV Total 436 ml 1456 ml Packed Cells 336 ml 336 ml # Voids 3 2 5 # Bowel Movements 0 0 Exam NAD, comfortably laying down on the bed no JVD, MMM, no LAD RRR, nl s1, s2 no mrg CTAB, no w,c, mild left CVAT S,ND,NT,normoactive BS+ warm, no edema, pulses 2/2 IVs and Medications Medications Reviewed: Medications were reviewed in detail Lab and Diagnostics Result Diagram: 02/15/17194402/15/17 0625 X-Rays, CTs and MRIs CT Abdomen 02/15/17 CONCLUSION: Acute left adrenal hematoma measuring 2.7 x 4 x 4 cm with mild surrounding stranding. Normal right adrenal gland. Mild diverticulosis without diverticulitis. Transmitted to the ED at 03:14 by Silvio Jimenez M.D Assessment & Plan Mr. Lay is a 61-year-old male with a prior medical history significant for pulmonary embolism, CAD with 2 stents, hypertension, hyperlipidemia, and a myeloproliferative disorder who presented to the emergency department with ongoing back pain. Left adrenal hematoma with possible ongoing bleed, present on admission. Acute. Ongoing, CT abd showed left adrenal fat stranding, but now shows a 2.7 x4 x 4 cm hematoma in the region, Patient does not appear to be in adrenal insufficiency; there is no hyperpigmentation, hypotension, hyperkalemia, or hyponatremia present. Pt required transfusion H&H was 9.3/27.2 in the ED, dropped to 8.3/24.4. on 02/15- ordered for 1U. -h/h remains stable, symptoms were unchanged, -no signs of adrenal insufficiency, will consider low dose steroid per , - Holding aspirin, warfarin at this time. No heparin/Lovenox DVT prophylaxis ordered. - Consider repeat imaging if H&H continues to fall, Pt could get a CTA. Acute blood loss anemia, POA, from adrenal hemorrhage -US of RP didn't show any extravasation -daily h/h, transfuse as needed target>9 Left Flank Pain, present on admission. Acute. Ongoing. - Likely due to hematoma as above, as this is the region he points to on exam - Hydrocodone 5-325 every 4 hours as needed, with 0.5-1 mg Dilaudid for breakthrough pain Myeloproliferative disorder, present on admission. Chronic. - Patient followed by Dr. Nieves, held hydroxyurea, likely after d/c Hypertension, present on admission. Chronic. - Continue lisinopril 20 mg daily - Continue metoprolol tartrate 50 mg daily Hyperlipidemia, present on admission. Chronic. - Patient has had 2 stents placed (LAD, diagonal) - Continue atorvastatin 40 mg daily Acetaminophen as needed for mild pain, fever, headache. Bowel regimen as needed. Zofran as needed for nausea. Subcutaneous heparin held at this time. dispo: likely 1-2more days, d/c home once h/h stable, sx controlled VTE Mechanical Devices: Intermittant Pneumatic CD Resuscitation Status: CPR: Attempt Resuscitation Time spent 35min Vishal Farris MD Feb 16, 2017 09:03
[2017-02-16] MEDS: Polyethylene Glycol (PEG) 17 Gm Powder PO PRN (15:09)
--- NOTE | 2017-02-16 15:55 | NUR ---
pain control patient left flank pain appears to be improving. patient rating pain today between 4-5/10 with a tolerable level at 5/10 with one episode of 7/10 when pain medication wearing off. He's been requesting less pain medication throughout shift today. Boyce 2 tabs and dilaudid PRN has been effective. patient showered today and has been up waling independently today reporting less pain with ambulation today then yesterday. continue to monitor.
--- NOTE | 2017-02-16 16:29 | NUR ---
spiritual care: pt request conversational visit, pt shared personal history, coping with medical events and especially new diagnosis of leukemia, heart diseases. Pt shared detailed story of seeking medical care yesterday--being at 2 hospitals before [facility] and his frustration at being misunderstood. He shared that he feels more confident about his care now. emotional/coping support from roommate Nasrin and also personal independent and resourceful nature and range of life experiences. pt not voodoo; said he was appreciative of company and someone to listen to his thoughts.
--- NOTE | 2017-02-16 23:40 | NUR ---
V-tach master automotive technician reported at 2330 that patient had 10 beats V-tach. Patient was ambulating in the medrano at this time. Asymptomatic besides back pain that patient was "walking off". Vital signs stable otherwise, denied chest pain. notified, awaiting call back.
[2017-02-17] VITALS (10 sets, daily range): BP systolic 99–125; BP diastolic 62–79; PULSE 70–100; RESP 14–18; O2SAT 96–99
--- NOTE | 2017-02-17 02:14 | NUR ---
Back Pain/Constipation Patient woke around 2330, complained of back pain 8/, "down the center of my spine." Also reported constipation. Patient declined PRN Miralax, Senna- reported that he already had those. Encouraged to ambulate- walked in medrano two laps. Obtained new order for PRN Tylenol per patient request and heating pad. Patient also given ice. Patient given coffee and prune juice for constipation. Patient reported around 0100 that stomach is "gurgling" more and reported decreased pain. Patient is sleeping at this time - 0215. Patient is alert and oriented, able to make needs known. Call light within reach, intentional rounding.
[2017-02-17] MEDS: HYDROcodone-APAP 5-325 mg Tablet PO PRN ×3 (04:26→21:06)
[2017-02-17 06:56] LABS: BASOPHILS % (AUTO) 1.2 % (0-3); EOSINOPHILS % (AUTO) 0.5 % (0-5); MONOCYTES % (AUTO) 19.1 % (4-12); Mean Corpuscular Hemoglobin 36.4 pg (27.0-35.0); Mean Corpuscular Volume 108.1 fL (81-100); NEUTROPHILS % (AUTO) 51.4 % (40-74); Platelet Count 67 bil/L (150-400)
[2017-02-17 07:57] LABS: Magnesium 1.7 mg/dL (1.6-2.6)
[2017-02-17] MEDS: Polyethylene Glycol (PEG) 17 Gm Powder PO PRN (08:27)
[2017-02-17] MEDS ORDERED: Magnesium Sulf 2 Gm/50mL Water 2 GM in IV Premix 1 EACH IV ONE (10:05)
--- NOTE | 2017-02-17 11:09 | NUR ---
Social Work-readiness for discharge/multidisciplinary rounds: Data:EMR reviewed. Pt is on day 2 of hospitalization for L adrenal per H&P. Pt is not medically stable anticipate 1-2 more days. Pt has been up independent in his room. No anticipated discharge needs identified. SW will continue to follow if needs arise. Assessment:Pt who is independent at baseline. Plan:Pt to discharge home today via POV. No anticipated discharge needs identified. SW will continue to follow if needs arise. ALISE Mir
--- NOTE | 2017-02-17 12:06 | NUR ---
KAITLYN signed at [id number]
--- NOTE | 2017-02-17 12:11 | PCM.PNMED ---
Subjective Date of Service Feb 17, 2017 Subjective Pt still require norco 2tab with dilaudid prn, although pt thinks pain is improving, able to ambulate Hallway today. denied GIB, h/h noticed mildly drop also PLT dropped ordered 1unit pRBC was still tachy high 90 to low 100s, subsiding this AM Exam Vital Signs Vital Sign - Last Date Time Temp Pulse Resp B/P Pulse Ox O2 Delivery O2 Flow Rate FiO2 02/17/17 10:05 37.0 85 18 121/65 99 Room Air Intake and Output 02/16/17 02/16/17 02/17/17 Cumulative From/Thru 15:00 23:00 07:00 02/15/17 00:07 - 02/17/17 06:21 Intake Total 2625 ml 200 ml 5339 ml Output Total 1050 ml 552 ml 1602 ml Balance 1575 ml -352 ml 3737 ml Intake Oral 2625 ml 200 ml 3547 ml IV Total 1456 ml Packed Cells 336 ml Output Urine Total 1050 ml 350 ml 1400 ml Stool Total 200 ml 200 ml Emesis 2 ml 2 ml # Voids 5 # Bowel Movements 0 0 Exam NAD, comfortably laying down on the bed no JVD, MMM, no LAD RRR, nl s1, s2 no mrg CTAB, no w,c, mild left CVAT S,ND,NT,normoactive BS+ warm, no edema, pulses 2/2 IVs and Medications Medications Reviewed: Medications were reviewed in detail Lab and Diagnostics Result Diagram: 02/17/1762602/17/17626 X-Rays, CTs and MRIs CT Abdomen 02/15/17 CONCLUSION: Acute left adrenal hematoma measuring 2.7 x 4 x 4 cm with mild surrounding stranding. Normal right adrenal gland. Mild diverticulosis without diverticulitis. Transmitted to the ED at 03:14 by Silvio Jimenez M.D Assessment & Plan Mr. Lay is a 61-year-old male with a prior medical history significant for pulmonary embolism, CAD with 2 stents, hypertension, hyperlipidemia, and a myeloproliferative disorder who presented to the emergency department with ongoing back pain. Left adrenal hematoma with possible ongoing bleed, present on admission. Acute. Ongoing, CT abd showed left adrenal fat stranding, but now shows a 2.7 x4 x 4 cm hematoma in the region, Patient does not appear to be in adrenal insufficiency; there is no hyperpigmentation, hypotension, hyperkalemia, or hyponatremia present. -h/h slightly dropped without overt signs of bleeding, symptoms seem to improve -no signs of adrenal insufficiency, will consider low dose steroid per , - Holding aspirin, warfarin at this time. No heparin/Lovenox DVT prophylaxis ordered. - Consider repeat imaging if H&H continues to fall, Pt could get a CTA. Acute blood loss anemia, POA, from adrenal hemorrhage, Pt required transfusion H &H was 9.3/27.2 in the ED, dropped to 8.3/24.4. on 02/15- ordered for 1U. 02/17 another 1unit. -US of RP didn't show any extravasation -daily h/h, transfuse as needed target>9 Left Flank Pain, present on admission. Acute. Ongoing. - Likely due to hematoma as above, as this is the region he points to on exam - Hydrocodone 5-325 every 4 hours as needed, with 0.5-1 mg Dilaudid for breakthrough pain Myeloproliferative disorder, present on admission. Chronic. - Patient followed by Dr. Nieves, held hydroxyurea, likely after d/c Hypertension, present on admission. Chronic. - Continue lisinopril 20 mg daily - Continue metoprolol tartrate 50 mg daily Hyperlipidemia, present on admission. Chronic. - Patient has had 2 stents placed (LAD, diagonal) - Continue atorvastatin 40 mg daily Acetaminophen as needed for mild pain, fever, headache. Bowel regimen as needed. Zofran as needed for nausea. Subcutaneous heparin held at this time. dispo: likely 1-2more days, d/c home once h/h stable, sx controlled VTE Mechanical Devices: Intermittant Pneumatic CD Resuscitation Status: CPR: Attempt Resuscitation Time spent 35min Vishal Farris MD Feb 17, 2017 12:11
[2017-02-17] MEDS: HYDROmorphone 1 mg/mL Inj IVPUSH PRN (19:12)
[2017-02-18] VITALS (9 sets, daily range): BP systolic 108–131; BP diastolic 64–85; PULSE 76–92; RESP 16–20; O2SAT 95–98
--- NOTE | 2017-02-18 02:56 | NUR ---
NOC shift note Patient reported back pain is "better" tonight, 11/03. Switched regular bed for foam bed, medicated with PRN Dilaudid and PRN Percocet one time each. Patient still has not had a bowel movement. Gave prune juice, stool softeners during the day, patient ambulated. Bowel tones active, passing gas. Vital signs stable. Intentional rounding in place.
[2017-02-18] MEDS: HYDROmorphone 1 mg/mL Inj IVPUSH PRN ×3 (03:28→20:37)
[2017-02-18] MEDS: HYDROcodone-APAP 5-325 mg Tablet PO PRN ×3 (04:57→14:46)
[2017-02-18 07:00] LABS: BASOPHILS % (AUTO) 1.2 % (0-3); EOSINOPHILS % (AUTO) 0.7 % (0-5); MONOCYTES % (AUTO) 18.5 % (4-12); Mean Corpuscular Hemoglobin 34.9 pg (27.0-35.0); Mean Corpuscular Volume 103.1 fL (81-100); NEUTROPHILS % (AUTO) 47.7 % (40-74); Platelet Count 54 bil/L (150-400)
[2017-02-18] MEDS ORDERED: HYDR-4003 PO (10:13)
--- NOTE | 2017-02-18 11:05 | PCM.DIMED ---
Discharge Instructions Date of Service Feb 18, 2017 Dates of Hospitalization Feb 15, 2017 at 04:08 Discharge Diagnosis Discharge Diagnosis acute dx Left adrenal hematoma in the setting of anticoagulation tx Acute blood loss anemia, from adrenal hemorrhage Left Flank Pain with adrenal hemorrhage chronic dx Myeloproliferative disorder Hypertension Hyperlipidemia Diet Discharge Diet: No restrictions Activity Discharge Activity: No restrictions Call your provider Call your provider for: Other (flank pain, ) Patient Instructions Patient Instructions You were hospitalized with acute left side pain and blood loss, you were found to have a bleeding in your left adrenal gland. You required transfusion multiple times, closely monitored in the hospital. Since you don't have any signs of acute bleeding, pain is controlled. You were being discharged to home. Please note that your Coumadin and Aspirin was discontinued due to this acute episode of bleeding. You may need to resume Aspirin in the future, However, please continue to hold it at this time. Your Hydroxyurea was also held, likely for few weeks as per . Please follow up with your primary doctor and as scheduled. Follow-up Provider: Raciel Inman MD Follow-up with PCP in: 2 weeks Provider: Fernando Gonzalez MD Follow-up in: 1 week Vishal Farris MD Feb 18, 2017 11:05
[2017-02-18 16:11] LABS: BASOPHILS % (AUTO) 1.4 % (0-3); EOSINOPHILS % (AUTO) 0.9 % (0-5); MONOCYTES % (AUTO) 18.9 % (4-12); Mean Corpuscular Hemoglobin 34.9 pg (27.0-35.0); Mean Corpuscular Volume 101.5 fL (81-100); NEUTROPHILS % (AUTO) 42.2 % (40-74); Platelet Count 51 bil/L (150-400)
--- NOTE | 2017-02-18 16:45 | PCM.PNMED ---
Subjective Date of Service Feb 18, 2017 Subjective pt looked very comfortable this AM had good BMx2 however, later PM, developed severe bilateral flank pain, d/c was canceled STAT cbc was stable Exam Vital Signs Vital Sign - Last Date Time Temp Pulse Resp B/P Pulse Ox O2 Delivery O2 Flow Rate FiO2 02/18/17 16:37 36.8 86 18 117/69 97 Room Air Intake and Output 02/17/17 02/17/17 02/18/17 Cumulative From/Thru 15:00 23:00 07:00 02/15/17 00:07 - 02/18/17 05:39 Intake Total 75 ml 2136 ml 700 ml 8250 ml Output Total 825 ml 2427 ml Balance 75 ml 1311 ml 700 ml 5823 ml Intake Oral 1725 ml 700 ml 5972 ml IV Total 75 ml 411 ml 1942 ml Packed Cells 336 ml Output Urine Total 825 ml 2225 ml Stool Total 200 ml Emesis 2 ml # Voids 2 7 # Bowel Movements 0 0 Exam NAD, comfortably laying down on the bed no JVD, MMM, no LAD RRR, nl s1, s2 no mrg CTAB, no w,c, mild left CVAT, no rash, mass S,ND,NT,normoactive BS+ warm, no edema, pulses 2/2 IVs and Medications Medications Reviewed: Medications were reviewed in detail Lab and Diagnostics Result Diagram: 02/18/17 1558 02/17/17 0627 X-Rays, CTs and MRIs CT Abdomen 02/15/17 CONCLUSION: Acute left adrenal hematoma measuring 2.7 x 4 x 4 cm with mild surrounding stranding. Normal right adrenal gland. Mild diverticulosis without diverticulitis. Transmitted to the ED at 03:14 by Silvio Jimenez M.D Assessment & Plan Mr. Lay is a 61-year-old male with a prior medical history significant for pulmonary embolism, CAD with 2 stents, hypertension, hyperlipidemia, and a myeloproliferative disorder who presented to the emergency department with ongoing back pain. Left adrenal hematoma with possible ongoing bleed, present on admission. Acute. Ongoing, CT abd showed left adrenal fat stranding, but now shows a 2.7 x4 x 4 cm hematoma in the region, Patient does not appear to be in adrenal insufficiency; there is no hyperpigmentation, hypotension, hyperkalemia, or hyponatremia present. -h/h remained stable after 1unit given yesterday, no signs of active bleeding. however, pain continued. ' - no signs of adrenal insufficiency, will consider low dose steroid per , - Holding aspirin, warfarin at this time. No heparin/Lovenox DVT prophylaxis ordered. - Consider repeat imaging if H&H continues to fall, Pt could get a CTA. Acute blood loss anemia, POA, from adrenal hemorrhage, Pt required transfusion H &H was 9.3/27.2 in the ED, dropped to 8.3/24.4. on 02/15- ordered for 1U. 02/17 another 1unit. -US of RP didn't show any extravasation -daily h/h, transfuse as needed target>9 Left Flank Pain, present on admission. Acute. Ongoing. - Likely due to hematoma as above, as this is the region he points to on exam - Hydrocodone 5-325 every 4 hours as needed, with 0.5-1 mg Dilaudid for breakthrough pain, dilaudid briefly held this AM but given persisent severe pain , resumed later. Myeloproliferative disorder, present on admission. Chronic. - Patient followed by Dr. Nieves, held hydroxyurea, likely after d/c Hypertension, present on admission. Chronic. - Continue lisinopril 20 mg daily - Continue metoprolol tartrate 50 mg daily Hyperlipidemia, present on admission. Chronic. - Patient has had 2 stents placed (LAD, diagonal) - Continue atorvastatin 40 mg daily Acetaminophen as needed for mild pain, fever, headache. Bowel regimen as needed. Zofran as needed for nausea. Subcutaneous heparin held at this time. dispo: likely tomorrow home, once pain is controlled VTE Mechanical Devices: Intermittant Pneumatic CD Resuscitation Status: CPR: Attempt Resuscitation Time spent 35min Vishal Farris MD Feb 18, 2017 16:45
[2017-02-18] MEDS ORDERED: HYDROmorphone PCA 0.2 mg/mL 30 mL Inj IV PRN (21:45)
[2017-02-18] MEDS ORDERED: HYDROmorphone 1 mg/mL Inj IVPUSH ONE ×2 (21:45)
[2017-02-18] MEDS: HYDROmorphone PCA 0.2 mg/mL 30 mL Inj IV PRN (22:00)
--- NOTE | 2017-02-18 22:30 | NUR ---
PAIN Pt c/o pain on Right side, restless in bed, very uncomfortable. Pt given prn IV pain medication per orders, pt stated, "I though it started to work, but it hasn't." Pt continued to be in pain, very restless, uncomfortable, requested to see MD. Fuller hospitalist paged, who came to assess pt. Dose of 2mg IV dilaudid ordered, administered. Orders also to start CORRESPONDENCE SPECIALIST dilaudid, CORRESPONDENCE SPECIALIST set up. MD also ordered CT. After a few pt administered doses and bolus x 1, pt more comfortable, no longer writhing in pain. Continue to monitor.
--- NOTE | 2017-02-18 23:04 | PCM.PNMED ---
Subjective Date of Service Feb 18, 2017 Subjective nurse called to have assessment of the patient who was wiggling around in pain. Patient reported right flank pain which was the opposite of the pain he has been enduring for the last few days. He denies any fever or chills, no chest pain of abdominal pain A/P Acute on chronic flank pain with acute right flank pain. Not present on admission - INTERLIBRARY LOAN SPECIALIST Dilaudid - CT scan abdominal pelvis with contrast Ambrocio Trimble MD Feb 18, 2017 23:04
[2017-02-19] VITALS (13 sets, daily range): BP systolic 116–164; BP diastolic 8–81; PULSE 76–105; RESP 16–22; O2SAT 94–100
--- NOTE | 2017-02-19 02:23 | NUR ---
CT Pt to CT d/t increased Right sided pain. Pt down to CT, taken down in wheelchair by RN approx [phone]. technician support engineer notified. [employer]k read, results faxed to [facility]. Noc resident read preliminary report. Labs already ordered for 02/20/17 am. Continue to monitor.
[2017-02-19] MEDS: HYDROmorphone PCA 0.2 mg/mL 30 mL Inj IV PRN ×3 (05:09→22:08)
[2017-02-19 06:09] LABS: Mean Corpuscular Volume 101.5 fL (81-100)
[2017-02-19 06:16] LABS: Mean Corpuscular Hemoglobin 35.1 pg (27.0-35.0)
[2017-02-19 07:36] LABS: BASOPHILS % (AUTO) 2 % (0-3); EOSINOPHILS % (AUTO) 1 % (0-5); MONOCYTES % (AUTO) 17 % (4-12); NEUTROPHILS % (AUTO) 45 % (40-74); Platelet Count 52 bil/L (150-400)
--- NOTE | 2017-02-19 11:14 | DRSVH ---
PROCEDURE: CT ABDOMEN AND PELVIS WITH CONTRAST ([id number]) INDICATIONS: abd pain TECHNIQUE: After the administration of oral and intravenous contrast, 5 mm thick sections acquired from the diap hragms to the symphysis. 5 mm thick coronal and sagittal reformats were performed. For radiation do se reduction, the following was used: automated exposure control, adjustment of mA and/or kV accordi ng to patient size. COMPARISON: [facility], CT, CT ANGIO CHEST PE, 05/11/2015, 1:26. [facility] , CT, CT ABD PELVIS W CON, 05/11/2015, 1:26. [facility], CT, CT ANGIO CHEST PE, 7, 4:15. [facility], CT, CT ABD PELVIS W CON, 02/15/2017, 2:54. FINDINGS: Image quality: Excellent. ABDOMEN: Lung bases: Lung bases are clear. Heart size is normal. Solid organs: There are bilateral adrenal enlargement/masses. The left adrenal mass measures 4.0 x 2. 8 cm, slightly enlarged compared to 02/15/2017. The right mass measures 2.7 x 2.5 cm and is new. There is jessica-adrenal stranding bilaterally. The CT findings are consistent with acute adrenal hemorrhage. Liver is normal in size and enhancement. The spleen is enlarged. Gallbladder is normal. Biliary sys tem is non-dilated. Pancreas enhances normally. There is mild peripancreatic stranding. No adrenal nodules. Kidneys are normal in size and enhancement, without hydronephrosis. Peritoneum and bowel: Stomach, small bowel, and colon loops are normal in caliber and wall thickness . There are scattered colonic diverticulosis. No evidence for acute diverticulitis. Appendix is norm al. No free fluid or air. Nodes and vessels: No retroperitoneal or mesenteric adenopathy. There are scattered colonic diverti cula. No evidence for acute diverticulitis. Aorta and inferior vena cava are normal in caliber. There is severe atherosclerosis. Mild right common iliac artery aneurysm measuring 2.3 cm. Left common juancarlos ac artery is ectatic measuring 1.9 cm. Miscellaneous: No ventral hernias. PELVIS: Genitourinary: Bladder wall thickness is normal. Enlarged prostate. Miscellaneous: No inguinal hernias or adenopathy. Bones: No suspicious bony lesions. No vertebral body compression fractures. IMPRESSION: 1. Bilateral adrenal masses most likely secondary to adrenal hemorrhage. 2. Mild stranding around pancreas. Recommend clinical correlation for mild pancreatitis. 3. Splenomegaly. This finding is nonspecific and may be secondary to infectious, inflammatory or bobbi plastic etiology. Recommend clinical correlation and follow up. 4. Diverticulosis. No active diverticulitis. Dictated by: Jose Regan M.D. on 02/19/2017 at 11:06 Transcribed by: [place] on 02/19/2017 at 11:15 Approved by: Jose Regan M.D. on 02/19/2017 at 22:25
--- NOTE | 2017-02-19 11:50 | PCM.PNMED ---
Subjective Date of Service Feb 19, 2017 Subjective pt developed acute Rt side flank pain even with dilaudid, emergent CT with contrast showed new mass on Rt gland and increased size of Left gland. cbc remained stable, pt was started on morphine SECURITY ADMINISTRATOR, controlled his pain better. otherwise remained afebrile, HD stable, not tachy Exam Vital Signs Vital Sign - Last Date Time Temp Pulse Resp B/P Pulse Ox O2 Delivery O2 Flow Rate FiO2 02/19/17 09:09 105 02/19/17 08:36 36.8 20 152/75 96 Room Air Intake and Output 02/18/17 02/18/17 02/19/17 Cumulative From/Thru 15:00 23:00 07:00 02/15/17 00:07 - 02/19/17 06:34 Intake Total 800 ml 200 ml 9250 ml Output Total 650 ml 725 ml 3802 ml Balance 150 ml -525 ml 5448 ml Intake Oral 800 ml 200 ml 6972 ml IV Total 1942 ml Packed Cells 336 ml Output Urine Total 650 ml 725 ml 3600 ml Stool Total 200 ml Emesis 2 ml # Voids 3 10 # Bowel Movements 3 3 Exam NAD, comfortably laying down on the bed no JVD, MMM, no LAD RRR, nl s1, s2 no mrg CTAB, no w,c, no rash, mass, no CVAT S,ND,NT,normoactive BS+ warm, no edema, pulses 2/2 IVs and Medications Medications Reviewed: Medications were reviewed in detail Lab and Diagnostics Result Diagram: 02/19/17 0546 02/17/17 0627 X-Rays, CTs and MRIs CT Abdomen 02/15/17 CONCLUSION: Acute left adrenal hematoma measuring 2.7 x 4 x 4 cm with mild surrounding stranding. Normal right adrenal gland. Mild diverticulosis without diverticulitis. Transmitted to the ED at 03:14 by Silvio Jimenez M.D Assessment & Plan Mr. Lay is a 61-year-old male with a prior medical history significant for pulmonary embolism, CAD with 2 stents, hypertension, hyperlipidemia, and a myeloproliferative disorder who presented to the emergency department with ongoing back pain. bilateral adrenal hematoma with possible ongoing bleed, present on admission. Acute. Ongoing, On admission, CT abd showed left adrenal fat stranding, but now shows a 2.7 x4 x 4 cm hematoma in the region, Patient does not appear to be in adrenal insufficiency; there is no hyperpigmentation, hypotension, hyperkalemia, or hyponatremia present. Pt was stable then developed new pain on Rt flank, repeat CT showed overall increase in size of Left adrenal gland and new Rt adrenal gland mass suggestive of new onset bleeding. - continue close observation especially now given bilateral hemorrhage, higher risks of adrenal insufficiency -consider surgery consult - no signs of adrenal insufficiency, will consider low dose steroid per , - Holding aspirin, warfarin at this time. No heparin/Lovenox DVT prophylaxis ordered. Acute blood loss anemia, POA, from adrenal hemorrhage, Pt required transfusion H &H was 9.3/27.2 in the ED, dropped to 8.3/24.4. on 02/15- ordered for 1U. 02/17 another 1unit. US of RP didn't show any extravasation but repeat CT showed new Rt adrenal hemorrhage, no active extravasation. -cbc remained stable despite newly developed Rt side bleeding, -h/h bid, transfuse as needed target>9 Severe thrombocytopenia, POA, mildly worsening, -consider plt transfusion given bleeding episode, discuss with , trends plt for now, bilateral flank Pain, present on admission. Acute. Ongoing. pt was started on Hydrocodone 5-325 every 4 hours as needed, with 0.5-1 mg Dilaudid for breakthrough pain but acutely developed pain with new Rt side bleeding, SECURITY ADMINISTRATOR started. - Likely due to hematoma as above, as this is the region he points to on exam - continue morphine SECURITY ADMINISTRATOR chronic, stable Myeloproliferative disorder, present on admission. Chronic. - Patient followed by Dr. Nieves, held hydroxyurea, likely after d/c Hypertension, present on admission. Chronic. - Continue lisinopril 20 mg daily - Continue metoprolol tartrate 50 mg daily Hyperlipidemia, present on admission. Chronic. - Patient has had 2 stents placed (LAD, diagonal) - Continue atorvastatin 40 mg daily Acetaminophen as needed for mild pain, fever, headache. Bowel regimen as needed. Zofran as needed for nausea. Subcutaneous heparin held at this time. dispo: pending given acute status VTE Mechanical Devices: Intermittant Pneumatic CD Resuscitation Status: CPR: Attempt Resuscitation Time spent 35min Vishal Farris MD Feb 19, 2017 11:50
--- NOTE | 2017-02-19 13:01 | NUR ---
Social Work: Brief Note SW has obtained signature for KAITLYN. KAITLYN has been signed by patient. ALISE Lawler
--- NOTE | 2017-02-19 13:02 | NUR ---
NUTRITION ASSESSMENT: ASSESS:Pt. admitted with ongoing back pain. He reports the pain started about 2 weeks ago and has gotten steadily worse. He developed acute R. side flank pain; emergent CT with contrast showing new mass on right gland and increased size of Left gland. Of note, there has been a weight loss of 5.6 kg x 5 months = 6.50%, which, although does not represent malnutrition, is concerning. PMHx:Myeloproliferative disorder, CAD, HTN, dysplipidemia, low back pain, right shoulder dislocations. DIET:Heart healthy. PO intake inconsistent, bites - 100% trays. LABS: Reviewed. Glu 110, Alb 3.8. MEDICATIONS: Reviewed. Morphine. NUTRITION FOCUSED PHYSICAL ASSESSMENT: GI symptoms / stool: BM x 3 (02/18).Dirk: 23. Skin Integrity: No issues reported. ANTHROPOMETRICS: Current Wt: 80.6 kgBMI: 24.0 kg/m2.Admit weight: 81.82 kg. IBW: 77.6 kg (105% IBW) ESTIMATED NEEDS (MYELOPROLIFERATIVE DISORDER): Calories: 2046 - 2455 kcal (25 - 30 kcal / kg BW) Protein: 123 - 164 g protein (1.5 - 2.0 g / kg BW) NUTRITION DIAGNOSIS: 1)Inadequate oral intake related to inability to consume sufficient energy, as evidenced by 6.5% weight loss x 5 months. INTERVENTION: 1) Will add Ensure to lunch and dinner trays. MONITOR/EVALUATE: Diet tolerance, PO intake, labs, GI/nutrition status. Follow up per moderate nutrition risk guidelines.
[2017-02-19] MEDS: HYDROcodone-APAP 5-325 mg Tablet PO PRN ×3 (15:18→23:51)
[2017-02-19 15:35] LABS: INR 1.05 ratio
--- NOTE | 2017-02-19 17:58 | NUR ---
Pain and Meds Increasing R Flank pain overnight. FACILITY MAINTENANCE TECHNICIAN dilaudid in place. Witnessed using dosing button, "so that he can get some sleep," and provided usage education. Pain resolved this shift. Transitioning to oral pain control with FACILITY MAINTENANCE TECHNICIAN only for breakthrough. Tolerating well at this time.
[2017-02-19 18:29] LABS: Mean Corpuscular Hemoglobin 34.9 pg (27.0-35.0); Mean Corpuscular Volume 103.4 fL (81-100); Platelet Count 44 bil/L (150-400)
[2017-02-19 19:36] LABS: BASOPHILS % (AUTO) 0 % (0-3); EOSINOPHILS % (AUTO) 0 % (0-5); MONOCYTES % (AUTO) 3 % (4-12); NEUTROPHILS % (AUTO) 40 % (40-74)
[2017-02-20] VITALS (10 sets, daily range): BP systolic 99–138; BP diastolic 55–78; PULSE 70–109; RESP 16–19; O2SAT 94–100
--- NOTE | 2017-02-20 05:15 | NUR ---
PAIN/PT ACTIVITY Pt attempted to wean off DIRECTOR OF STRATEGIC ALLIANCES, pain pills administered. Pt unable to achieve adequate pain control using pain pills. Pt continues to use DIRECTOR OF STRATEGIC ALLIANCES medication for pain control. Pt wants to attempt using his DIRECTOR OF STRATEGIC ALLIANCES less often, and determine if his pain in adequately controlled, so he can transition to pain pills. Pt has been more comfortable and mobile this shift. Pt able to ambulate in hallways. Continue to monitor. Call light in reach. Intentional rounding.
[2017-02-20 06:50] LABS: Mean Corpuscular Hemoglobin 35.4 pg (27.0-35.0); Mean Corpuscular Volume 104.1 fL (81-100); Platelet Count 48 bil/L (150-400)
[2017-02-20 07:17] LABS: NEUTROPHILS % (AUTO) 35 % (40-74)
[2017-02-20 07:18] LABS: BASOPHILS % (AUTO) 1 % (0-3); EOSINOPHILS % (AUTO) 2 % (0-5); MONOCYTES % (AUTO) 17 % (4-12)
[2017-02-20] MEDS: HYDROmorphone PCA 0.2 mg/mL 30 mL Inj IV PRN ×2 (07:58→20:27)
--- NOTE | 2017-02-20 09:29 | PCM.PNMED ---
Subjective Date of Service Feb 20, 2017 Subjective pain is better controlled with STATION EXAMINER, however, still c/o severe pain on Rt flank, less on left side CBC remained stable, as well as plt count noted in CBC, lymphocytes is increasing. HD remained stable Exam Vital Signs Vital Sign - Last Date Time Temp Pulse Resp B/P Pulse Ox O2 Delivery O2 Flow Rate FiO2 02/20/17 08:53 36.8 93 16 122/68 100 Room Air Intake and Output 02/19/17 02/19/17 02/20/17 Cumulative From/Thru 15:00 23:00 07:00 02/15/17 00:07 - 02/20/17 05:46 Intake Total 1305 ml 565 ml 99016 ml Output Total 750 ml 125 ml 4677 ml Balance 555 ml 440 ml 6443 ml Intake Oral 836 ml 436 ml 8244 ml IV Total 469 ml 129 ml 2540 ml Packed Cells 336 ml Output Urine Total 750 ml 125 ml 4475 ml Stool Total 200 ml Emesis 2 ml # Voids 2 12 # Bowel Movements 2 5 Exam NAD, comfortably laying down on the bed no JVD, MMM, no LAD RRR, nl s1, s2 no mrg CTAB, no w,c, no rash, mass, no CVAT S,ND,NT,normoactive BS+ warm, no edema, pulses 2/2 IVs and Medications Medications Reviewed: Medications were reviewed in detail Lab and Diagnostics Result Diagram: 02/20/1761902/17/17 06 X-Rays, CTs and MRIs CT Abdomen 02/15/17 CONCLUSION: Acute left adrenal hematoma measuring 2.7 x 4 x 4 cm with mild surrounding stranding. Normal right adrenal gland. Mild diverticulosis without diverticulitis. Transmitted to the ED at 03:14 by Silvio Jimenez M.D Assessment & Plan Mr. Lay is a 61-year-old male with a prior medical history significant for pulmonary embolism, CAD with 2 stents, hypertension, hyperlipidemia, and a myeloproliferative disorder who presented to the emergency department with ongoing back pain. bilateral adrenal hematoma with possible ongoing bleed, present on admission. Acute. Ongoing, On admission, CT abd showed left adrenal fat stranding, but now shows a 2.7 x4 x 4 cm hematoma in the region, Patient does not appear to be in adrenal insufficiency; there is no hyperpigmentation, hypotension, hyperkalemia, or hyponatremia present. Pt was stable then developed new pain on Rt flank, repeat CT showed overall increase in size of Left adrenal gland and new Rt adrenal gland mass suggestive of new onset bleeding. - continue close observation especially now given bilateral hemorrhage, higher risks of adrenal insufficiency, -as per Surgery consult, there is no surgical indication. discussed - no signs of adrenal insufficiency, will consider low dose steroid per , - Holding aspirin, warfarin at this time. No heparin/Lovenox DVT prophylaxis ordered. Acute blood loss anemia, POA, from adrenal hemorrhage, Pt required transfusion H &H was 9.3/27.2 in the ED, dropped to 8.3/24.4. on 02/15- ordered for 1U. 02/17 another 1unit. US of RP didn't show any extravasation but repeat CT showed new Rt adrenal hemorrhage, no active extravasation. -cbc remained stable despite newly developed Rt side bleeding, -h/h bid, transfuse as needed target>9 Severe thrombocytopenia, POA, mildly worsening, -slighltly improved, consider plt transfusion or FFP given bleeding episode, trends plt for now, bilateral flank Pain, present on admission. Acute. Ongoing. pt was started on Hydrocodone 5-325 every 4 hours as needed, with 0.5-1 mg Dilaudid for breakthrough pain but acutely developed pain with new Rt side bleeding, STATION EXAMINER started. - Likely due to hematoma as above, as this is the region he points to on exam - continue morphine STATION EXAMINER Myeloproliferative disorder, present on admission. Chronic. - increasing lymphocytes is concerning close to 50%, will obtain opinion today - Patient followed by Dr. Nieves, held hydroxyurea, likely after d/c chronic, stable Hypertension, present on admission. Chronic. - Continue lisinopril 20 mg daily - Continue metoprolol tartrate 50 mg daily Hyperlipidemia, present on admission. Chronic. - Patient has had 2 stents placed (LAD, diagonal) - Continue atorvastatin 40 mg daily Acetaminophen as needed for mild pain, fever, headache. Bowel regimen as needed. Zofran as needed for nausea. Subcutaneous heparin held at this time. dispo: pending given acute status VTE Mechanical Devices: Intermittant Pneumatic CD Resuscitation Status: CPR: Attempt Resuscitation Time spent 35min Vishal Farris MD Feb 20, 2017 09:29
[2017-02-20] MEDS: Polyethylene Glycol (PEG) 17 Gm Powder PO PRN (14:45)
--- NOTE | 2017-02-20 18:55 | NUR ---
Pain/Activity Pt using Dilaudid MULTINEEDLE SHIRRER for pain control. Pt appeared to be comfortable, able to rest with no complains of increased pain. Pt ambulated in hallways through out the shift. Pt was getting self ready for bed requested administration of PO pain meds. This RN reviewed the use of MULTINEEDLE SHIRRER, pt concerned that he will not be able to rest as there is no one to "push the button". Pt adamant about receiving PO pain medication at bedside. MULTINEEDLE SHIRRER turned off at request of pt, PO pain meds given as requested. Oncoming RN advised of pain management as requested by pt. Call light in reach. Intentional rounding.
[2017-02-20] MEDS: HYDROcodone-APAP 5-325 mg Tablet PO PRN (19:05)
[2017-02-21] VITALS (16 sets, daily range): BP systolic 82–119; BP diastolic 48–72; PULSE 60–105; RESP 12–20; O2SAT 94–98
--- NOTE | 2017-02-21 00:06 | NUR ---
Pain management: At the beginning of the shift, pt reported wanting the HOUSE DETECTIVE set up again for pain management, was unsure as to why it was taken away. Per report this was done on the pt's request. States the PO pain medication is only effective for "2 hours" and the IV medication helps him make it through, as he understands the PO medication is only every 4 hours. Pt stated understanding that to be ready for d/c PO pain meds need to be effective for pain control. No BM yet, declined prune juice. Scheduled Colace administered and pt has been ambulating in the halls.
--- NOTE | 2017-02-21 04:21 | NUR ---
Hypotension: BP decreased from trends tonight has been 90s/50-60s. Heart rate slightly elevated at 90s-100s. Labs ordered for the morning. Pt denies dizziness, lightheadedness when up. Pt has been able to sleep for many hours tonight, stated last evening he has not been able to sleep on previous nights. When woke for assessment, pt reported pain level tolerable at 3/10. MD notified via page of pt's current VS. Addendum: 02/21/17 at 0609 by BRITTNEY NEVILLE RN Pt up and ambulating this morning without dizziness, BP 113/72.
[2017-02-21] MEDS: HYDROmorphone 1 mg/mL Inj IVPUSH PRN ×3 (08:15→22:19)
[2017-02-21 08:23] LABS: BASOPHILS % (AUTO) 0 % (0-3); EOSINOPHILS % (AUTO) 2 % (0-5); MONOCYTES % (AUTO) 11 % (4-12); Mean Corpuscular Hemoglobin 34.9 pg (27.0-35.0); Mean Corpuscular Volume 103.2 fL (81-100); NEUTROPHILS % (AUTO) 33 % (40-74); Platelet Count 43 bil/L (150-400)
--- NOTE | 2017-02-21 09:08 | PCM.PNMED ---
Subjective Date of Service Feb 21, 2017 Subjective pt still in significant pain on Rt flank. h/h, plt is further trending down today. awaits Oncology eval from or Lizbeth Exam Vital Signs Vital Sign - Last Date Time Temp Pulse Resp B/P Pulse Ox O2 Delivery O2 Flow Rate FiO2 02/21/17 05:38 18 96 02/21/17 05:07 60 113/72 02/21/17 04:07 36.7 Room Air Intake and Output 02/20/17 02/20/17 02/21/17 Cumulative From/Thru 15:00 23:00 07:00 02/15/17 00:07 - 02/21/17 05:41 Intake Total 472 ml 98 ml 89445 ml Output Total 550 ml 5227 ml Balance -78 ml 98 ml 6463 ml Intake Oral 472 ml 8716 ml IV Total 98 ml 2638 ml Packed Cells 336 ml Output Urine Total 550 ml 5025 ml Stool Total 200 ml Emesis 2 ml # Voids 12 # Bowel Movements 0 5 Exam NAD, comfortably laying down on the bed no JVD, MMM, no LAD RRR, nl s1, s2 no mrg CTAB, no w,c, no rash, mass, no CVAT S,ND,NT,normoactive BS+ warm, no edema, pulses 2/2 IVs and Medications Medications Reviewed: Medications were reviewed in detail Lab and Diagnostics Result Diagram: 02/21/17 0635 02/17/17 0627 X-Rays, CTs and MRIs CT Abdomen 02/15/17 CONCLUSION: Acute left adrenal hematoma measuring 2.7 x 4 x 4 cm with mild surrounding stranding. Normal right adrenal gland. Mild diverticulosis without diverticulitis. Transmitted to the ED at 03:14 by Silvio Jimenez M.D Assessment & Plan Mr. Lay is a 61-year-old male with a prior medical history significant for pulmonary embolism, CAD with 2 stents, hypertension, hyperlipidemia, and a myeloproliferative disorder who presented to the emergency department with ongoing back pain. bilateral adrenal hematoma with possible ongoing bleed, present on admission. Acute. Ongoing, On admission, CT abd showed left adrenal fat stranding, but now shows a 2.7 x4 x 4 cm hematoma in the region, Patient does not appear to be in adrenal insufficiency; there is no hyperpigmentation, hypotension, hyperkalemia, or hyponatremia present. Pt was stable then developed new pain on Rt flank, repeat CT showed overall increase in size of Left adrenal gland and new Rt adrenal gland mass suggestive of new onset bleeding. - continue close observation especially now given bilateral hemorrhage, higher risks of adrenal insufficiency, -as per Surgery consult, there is no surgical indication. discussed - no signs of adrenal insufficiency, will consider low dose steroid per , - Holding aspirin, warfarin at this time. No heparin/Lovenox DVT prophylaxis ordered. Acute blood loss anemia, POA, from adrenal hemorrhage, Pt required transfusion H &H was 9.3/27.2 in the ED, dropped to 8.3/24.4. on 02/15- ordered for 1U. 02/17 another 1unit. US of RP didn't show any extravasation but repeat CT showed new Rt adrenal hemorrhage, no active extravasation. -cbc slowly trending down today, -h/h bid, transfuse as needed target hgb>9 Severe thrombocytopenia, POA, mildly worsening, -trending down, will consider plt transfusion or FFP given bleeding episode, trends plt for now, bilateral flank Pain, present on admission. Acute. Ongoing. pt was started on Hydrocodone 5-325 every 4 hours as needed, with 0.5-1 mg Dilaudid for breakthrough pain but acutely developed pain with new Rt side bleeding, OFFICE CLERK ROUTINE started. - Likely due to hematoma as above, as this is the region he points to on exam - continue morphine OFFICE CLERK ROUTINE Myeloproliferative disorder, present on admission. Chronic. - increasing lymphocytes is concerning close to 50%, consulted 02/20, awaits recommendation - Patient followed by Dr. Nieves, held hydroxyurea, likely after d/c chronic, stable Hypertension, present on admission. Chronic. - Continue lisinopril 20 mg daily - Continue metoprolol tartrate 50 mg daily Hyperlipidemia, present on admission. Chronic. - Patient has had 2 stents placed (LAD, diagonal) - Continue atorvastatin 40 mg daily Acetaminophen as needed for mild pain, fever, headache. Bowel regimen as needed. Zofran as needed for nausea. Subcutaneous heparin held at this time. dispo: pending given acute status VTE Mechanical Devices: Intermittant Pneumatic CD Resuscitation Status: CPR: Attempt Resuscitation Time spent 35min Vishal Farris MD Feb 21, 2017 09:07
--- NOTE | 2017-02-21 11:35 | NUR ---
Social Work-readiness for discharge: Data:EMR Reviewed. Pt is on day 6 of hospitalization for adrenal hemorrhage per H&P. Pt is not medically stable anticipate 1-2 more days. Pt dubon been up independent in his room. No anticipated discharge needs. SW will continue to follow if needs arise. Assessment:Pt who is independent at baseline. Plan:Pt to discharge home when medically stable via POV. No anticipated discharge needs. SW will continue to follow if needs arise. ALISE Mir
[2017-02-21] MEDS: Polyethylene Glycol (PEG) 17 Gm Powder PO PRN (12:25)
--- NOTE | 2017-02-21 15:31 | NUR ---
Transfer MO Pt transferred to 239-1, report called to Justo Champagne RN. Pt denied pain. Tele notified. DETECTIVE SUPERVISOR pump ran out, pt asked to stop it and will ask for meds as needed. aware.
--- NOTE | 2017-02-21 15:44 | NUR ---
Transfer Pt transferred from [facility] at 1530. Report provided by Paul Fisher. Pt stable upon arrival. BP attained prior to transport, stable. Tele notified on prior to transport and on arrival. Pt A&Ox4. Oriented to room. Discussed plan of care goals for remainder of day shift. Will continue to monitor.
[2017-02-21] MEDS ORDERED: Hydrocortisone 50 mg/mL 2 mL Inj IVPUSH ONE (16:45)
--- NOTE | 2017-02-21 16:51 | NUR ---
VS notified that pre platelet transfusion temp 100.4 with BP 94/56. BP's seeming to trend low today. MD requests hold of platelet tranfusion, lab will draw blood cultures, MD to order steroids and requests tylenol be given (after cultures) and then to proceed with transfusion Addendum: 02/21/17 at 1847 by JEROME FOY RN notified 1819 that pt BP continues to be on low side, pt sweaty with current temp 99.0 after about 30 minutes of platelet transfusion. No AMS. Steroids and tylenol given following cultures per and prior to transfusion of platelets. Per MD was ok to give further pain meds for SBP >100. Pt since transfer has had increasing right lower back pain with max 8/10. Dilaudid given with SBP 109. Per 1819 to give NS bolus 1L. To continue platelet transfusion. To transfer pt to [facility]. New IV started and bolus began. Will monitor. Tele SR 85, tele aware of upcoming transfer. Most recent BP 96/57, sats and RR stable. Addendum: 02/21/17 at 1927 by JEROME FOY RN Pt transferred to [facility]. Report provided to Kathryn Slater RN. Pt stable on transfer with remaining platelets and NS bolus transfusing. All belongings transferred with pt.
[2017-02-21] MEDS: 0.9% Sodium Chloride 1,000 ML IV SCH ×2 (17:08→22:20)
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
[2017-02-21 17:30] LABS: Mean Corpuscular Hemoglobin 34.3 pg (27.0-35.0)
[2017-02-21] MEDS ORDERED: 0.9% Sodium Chloride 250 ML ONE (17:30)
[2017-02-21 17:49] LABS: Platelet Count 42 bil/L (150-400)
[2017-02-21 17:58] LABS: BASOPHILS % (AUTO) 2 % (0-3); EOSINOPHILS % (AUTO) 0 % (0-5); MONOCYTES % (AUTO) 8 % (4-12); NEUTROPHILS % (AUTO) 32 % (40-74)
[2017-02-21] MEDS ORDERED: 0.9% Sodium Chloride 1,000 ML IV ONE (18:20)
--- NOTE | 2017-02-21 18:34 | CCS NOTE ---
[facility] [address] [address] MEDICAL ONCOLOGY OFFICE NOTE PATIENT: TRISTAN CAZARES : 1955 MR#: [id number] DATE: 02/15/2017 JOB ID: [id number] DATE: 02/21/2017 The patient was seen during this hospitalization on February 15. He continues to be in the hospital with his adrenal hemorrhage and cytopenias. As I had suggested last week, his hydroxyurea has been discontinued as well as his warfarin. He had a platelet count of 117 upon admission, a white count of 6.4, and a hemoglobin of 8.3. He had a subtherapeutic INR on admission of 1.53 and his warfarin has been held, and currently has INR of 1.0. His platelet count has deteriorated down to [address] Farris had contacted us to follow along. The patient had a repeat abdominal CT because of increasing pain on February 19, and was found to have a known left adrenal mass measuring 4.0 x 2.8 cm, but this time also had an enlargement in the right adrenal area measuring 2.7 x 2.5 with Hounsfield units that are suggesting for bilateral adrenal hemorrhage. At the same time, his blood pressure has been today low in the 80s and he developed a temperature of 38.0, borderline for fever. When I saw him, he was in no acute distress this afternoon and complains of weakness which is likely due to his low blood pressure. No petechiae. MEDICATION: 1. Hydromorphone p.r.n. for pain. 2. Lisinopril 20 mg daily. 3. Metoprolol 50 mg daily. ASSESSMENT AND PLAN: A 61-year-old gentleman with history of myeloproliferative disorder with leukocytosis and thrombocytosis, on hydroxyurea as an outpatient, as well as previous history of pulmonary embolism and intracardiac thrombus in the setting of severe left ventricular dysfunction with an ejection fraction of 35% in late 2014. He has been on hydroxyurea and warfarin. He has come in with left flank pain with CT scan suggesting left adrenal hemorrhage last week. His platelet count was around 117 on admission. His warfarin was subtherapeutic on presentation with an INR of 1.5, and therefore, it is quite strange that he had this spontaneous bleed. Luckily, his recent echocardiogram had shown resolution of the previous intra-atrial thrombus. I had recommended to discontinue warfarin as well as the hydroxyurea last week, which has occurred. Currently his platelet count has trended down further to now 43. He has, on this current CT, evidence of enlargement of the right had renal gland, i.e., contralateral side as well measuring 2.5 cm suggesting for some bleeding in that region as well. There is no evidence of DIC with a nonsuppressed fibrinogen and his INR is normal. I suspect that his continuous thrombocytopenia is due to consumption and lagging effect on hydroxyurea and suggested to transfuse him with 1-2 units of single donor platelets to get his platelet count closer to 75. In addition, he might have adrenal insufficiency because of this and suggested to add hydrocortisone. I am also noticing that the patient is on both lisinopril and metoprolol with a fairly low blood pressure and therefore suggest to discontinue lisinopril and lower the dose of metoprolol. Workup for infectious etiology is ongoing.
[2017-02-21] MEDS: HYDROcodone-APAP 5-325 mg Tablet PO PRN (20:07)
[2017-02-21] MEDS: Hydrocortisone 50 mg/mL 2 mL Inj IVPUSH SCH (22:19)
[2017-02-22] VITALS (11 sets, daily range): BP systolic 97–132; BP diastolic 61–87; PULSE 84–106; RESP 16–20; O2SAT 97–98
[2017-02-22 04:11] LABS: Mean Corpuscular Hemoglobin 34.3 pg (27.0-35.0); Mean Corpuscular Volume 102.4 fL (81-100); Platelet Count 54 bil/L (150-400)
[2017-02-22] MEDS: HYDROmorphone 1 mg/mL Inj IVPUSH PRN ×2 (04:41→22:13)
[2017-02-22] MEDS: HYDROcodone-APAP 5-325 mg Tablet PO PRN ×2 (04:41→22:13)
[2017-02-22] MEDS: Hydrocortisone 50 mg/mL 2 mL Inj IVPUSH SCH ×4 (04:44→21:57)
[2017-02-22 04:53] LABS: BASOPHILS % (AUTO) 1 % (0-3); EOSINOPHILS % (AUTO) 0 % (0-5); NEUTROPHILS % (AUTO) 46 % (40-74)
[2017-02-22 04:54] LABS: MONOCYTES % (AUTO) 15 % (4-12)
--- NOTE | 2017-02-22 05:27 | NUR ---
Transfer to [facility] Pt transferred to [facility] room 2019 from [facility] unit. All belongings brought with patient to new room. NS bolus infusing along with platelets when patient arrived to new room. Pt requesting to remain in current foam bed because of his back pain. VSS and WNL. NS infusing at 100ml/hour into patent left forearm IV. Right AC NS locked. Pt walking the halls to decrease the level of his back pain. Pt states that Dr. Farris told him to press his DONOR SPECIALIST pain pump every six minutes. Pt states that he didn't like how it made him feel so that is why he didn't want to continue DONOR SPECIALIST pump. Pt given 1-2 [place] for pain management with Dilaudid 1mg IV for breakthrough pain with good effect.
[2017-02-22] MEDS: 0.9% Sodium Chloride 1,000 ML IV SCH ×2 (06:19→21:57)
[2017-02-22] MEDS ORDERED: Hydrocortisone 50 mg/mL 2 mL Inj IVPUSH SCH (08:30)
--- NOTE | 2017-02-22 15:29 | NUR ---
transfusion pt received platelet transfusion without any s/s of adverse reaction. Tylenol and Benadryl given before transfusion per MD's order. Ongoing care.
--- NOTE | 2017-02-22 15:54 | PCM.PNMED ---
Subjective Date of Service Feb 22, 2017 Subjective Patient is ambulating in the halls without significant complaints. Still does have some low-grade bilateral flank pain. He was transferred here from [facility] due to questionable reaction to platelet transfusion with increased abdominal pain and diaphoresis. Exam Vital Signs Vital Sign - Last Date Time Temp Pulse Resp B/P Pulse Ox O2 Delivery O2 Flow Rate FiO2 02/22/17 15:30 36.8 91 20 129/75 02/22/17 11:51 97 Room Air Intake and Output 02/21/17 02/21/17 02/22/17 Cumulative From/Thru 15:00 23:00 07:00 02/15/17 00:07 - 02/22/17 04:00 Intake Total 292 ml 850 ml 43714 ml Output Total 150 ml 5377 ml Balance 142 ml 850 ml 7455 ml Intake Oral 200 ml 450 ml 9366 ml IV Total 92 ml 100 ml 2830 ml Packed Cells 300 ml 636 ml Output Urine Total 150 ml 5175 ml Stool Total 200 ml Emesis 2 ml # Voids 2 14 # Bowel Movements 0 5 Exam Constitutional: Middle-aged male in no acute distress Head: Normocephalic atraumatic Chest: Clear to auscultation Cor: Regular rate and rhythm without murmur Abdomen: Soft there is mild tenderness and bilateral mid abdominal area no rebound no guarding Extremities: No pedal edema Neuro: Alert and oriented 3, motor strength is intact bilaterally Skin: No rashes Psych: Mood and affect are appropriate Lab and Diagnostics Laboratory Tests 72 Hours Test 02/19/17 18:26 02/20/17 06:20 02/20/17 10:13 02/21/17 06:35 White Blood Count 2.9th/mm3 (3.8-10.1) 3.2th/mm3 (3.8-10.1) 3.6th/mm3 (3.8-10.1) Red Blood Count 2.61mil/mm3 (4.40-5.80) 2.71mil/mm3 (4.40-5.80) 2.49mil/mm3 (4.40-5.80) Hemoglobin 9.1g/dL (13.8-17.2) 9.6g/dL (13.8-17.2) 8.7g/dL (13.8-17.2) Hematocrit 27.0% (41.0-50.0) 28.2% (41.0-50.0) 25.7% (41.0-50.0) Mean Corpuscular Volume 103.4fL (81-100) 104.1fL (81-100) 103.2fL (81-100) Mean Corpuscular Hemoglobin 34.9pg (27.0-35.0) 35.4pg (27.0-35.0) 34.9pg (27.0-35.0) Mean Corpuscular Hemoglobin Concent 33.7% (32.0-37.0) 34.0% (32.0-37.0) 33.9% (32.0-37.0) Red Cell Distribution Width 21.0% (12.3-15.4) 21.0% (12.3-15.4) 12.4% (12.3-15.4) Platelet Count 44bil/L (150-400) 48bil/L (150-400) 43bil/L (150-400) Neutrophils (%) (Auto) 40% (40-74) 35% (40-74) 33% (40-74) Lymphocytes (%) (Auto) 50% (14-46) 39% (14-46) 46% (14-46) Monocytes (%) (Auto) 3% (4-12) 17% (4-12) 11% (4-12) Eosinophils (%) (Auto) 0% (0-5) 2% (0-5) 2% (0-5) Basophils (%) (Auto) 0% (0-3) 1% (0-3) 0% (0-3) Band Neutrophils % 5% (1-5) 3% (1-5) 8% (1-5) Metamyelocytes % 2% (0-0) Myelocytes % 3% (0-0) Nucleated Red Blood Cells 1/100 WBC (0-24) Fibrinogen 631mg/dL (157-380) Test 02/21/17 17:26 02/21/17 20:48 02/22/17 03:30 White Blood Count 4.1th/mm3 (3.8-10.1) 4.6th/mm3 (3.8-10.1) Red Blood Count 2.51mil/mm3 (4.40-5.80) 2.48mil/mm3 (4.40-5.80) Hemoglobin 8.6g/dL (13.8-17.2) 8.5g/dL (13.8-17.2) Hematocrit 25.6% (41.0-50.0) 25.4% (41.0-50.0) Mean Corpuscular Volume 102.0fL (81-100) 102.4fL (81-100) Mean Corpuscular Hemoglobin 34.3pg (27.0-35.0) 34.3pg (27.0-35.0) Mean Corpuscular Hemoglobin Concent 33.6% (32.0-37.0) 33.5% (32.0-37.0) Red Cell Distribution Width 20.8% (12.3-15.4) 20.5% (12.3-15.4) Platelet Count 42bil/L (150-400) 54bil/L (150-400) Neutrophils (%) (Auto) 32% (40-74) 46% (40-74) Lymphocytes (%) (Auto) 54% (14-46) 20% (14-46) Monocytes (%) (Auto) 8% (4-12) 15% (4-12) Eosinophils (%) (Auto) 0% (0-5) 0% (0-5) Basophils (%) (Auto) 2% (0-3) 1% (0-3) Band Neutrophils % 3% (1-5) 11% (1-5) Myelocytes % 1% (0-0) 5% (0-0) Nucleated Red Blood Cells 2/100 WBC (0-24) Lactic Acid Level 0.8mmol/L (0.4-2.0) Cortisol 55.6ug/dL (.) Metamyelocytes % 2% (0-0) Sodium Level 135mEq/L (134-144) Potassium Level 4.6mEq/L (3.5-5.2) Chloride Level 99mEq/L (97-108) Carbon Dioxide Level 22mmol/L (18-29) Blood Urea Nitrogen 28mg/dL (8-27) Creatinine 1.01mg/dL (0.76-1.27) Estimat Glomerular Filtration Rate 80mL/min (>59) Glucose Level 161mg/dL (60-99) Calcium Level 9.0mg/dL (8.5-10.1) Total Bilirubin 0.5mg/dL (0.0-1.2) Aspartate Amino Transf (AST/SGOT) 20U/L (0-50) Alanine Aminotransferase (ALT/SGPT) 24U/L (0-44) Alkaline Phosphatase 219U/L (25-160) Total Protein 6.0g/dL (6.4-8.4) Albumin 3.3g/dL (3.4-5.0) Result Diagram: 02/22/17 0330 02/22/17 0330 X-Rays, CTs and MRIs CT Abdomen 02/15/17 CONCLUSION: Acute left adrenal hematoma measuring 2.7 x 4 x 4 cm with mild surrounding stranding. Normal right adrenal gland. Mild diverticulosis without diverticulitis. Transmitted to the ED at 03:14 by Silvio Jimenez M.D Assessment & Plan Mr. Lay is a 61-year-old male with a prior medical history significant for pulmonary embolism, CAD with 2 stents, hypertension, hyperlipidemia, and a myeloproliferative disorder who presented to the emergency department with ongoing back pain. bilateral adrenal hematoma with possible ongoing bleed, present on admission. Acute. Ongoing, On admission, CT abd showed left adrenal fat stranding, but now shows a 2.7 x4 x 4 cm hematoma in the region, Patient does not appear to be in adrenal insufficiency; there is no hyperpigmentation, hypotension, hyperkalemia, or hyponatremia present. Pt was stable then developed new pain on Rt flank, repeat CT showed overall increase in size of Left adrenal gland and new Rt adrenal gland mass suggestive of new onset bleeding. - continue close observation especially now given bilateral hemorrhage, higher risks of adrenal insufficiency, -as per Surgery consult, there is no surgical indication. discussed - no signs of adrenal insufficiency, will consider low dose steroid per , - Holding aspirin, warfarin at this time. No heparin/Lovenox DVT prophylaxis ordered. Acute blood loss anemia, POA, from adrenal hemorrhage, Pt required transfusion H &H was 9.3/27.2 in the ED, dropped to 8.3/24.4. on 02/15- ordered for 1U. 02/17 another 1unit. US of RP didn't show any extravasation but repeat CT showed new Rt adrenal hemorrhage, no active extravasation. -cbc slowly trending down today, -h/h bid, transfuse as needed target hgb>9 Severe thrombocytopenia, POA, mildly worsening, -trending down, -As per oncology will proceed with another platelet transfusion today premedicated with IV Benadryl and by mouth Tylenol. Patient currently is on higher dose hydrocortisone. -As per oncology yesterday: I suspect that his continuous thrombocytopenia is due to consumption and lagging effect on hydroxyurea and suggested to transfuse him with 1-2 units of single donor platelets to get his platelet count closer to 75. In addition, he might have adrenal insufficiency because of this and suggested to add hydrocortisone. bilateral flank Pain, present on admission. Acute. Ongoing. pt was started on Hydrocodone 5-325 every 4 hours as needed, with 0.5-1 mg Dilaudid for breakthrough pain but acutely developed pain with new Rt side bleeding, BUILDING PERFORMANCE CONSULTANT started. - Likely due to hematoma as above, as this is the region he points to on exam - continue morphine BUILDING PERFORMANCE CONSULTANT Myeloproliferative disorder, present on admission. Chronic. - increasing lymphocytes is concerning close to 50%, consulted 02/20, awaits recommendation - Patient followed by Dr. Nieves, held hydroxyurea, chronic, stable Hypertension, present on admission. Chronic. - Continue lisinopril 20 mg daily - Continue metoprolol tartrate 50 mg daily Hyperlipidemia, present on admission. Chronic. - Patient has had 2 stents placed (LAD, diagonal) - Continue atorvastatin 40 mg daily Acetaminophen as needed for mild pain, fever, headache. Bowel regimen as needed. Zofran as needed for nausea. Subcutaneous heparin held at this time. dispo: pending given acute status VTE Mechanical Devices: Intermittant Pneumatic CD Resuscitation Status: CPR: Attempt Resuscitation Time spent 30 minutes Estela Gandara MD Feb 22, 2017 15:54
--- NOTE | 2017-02-22 23:21 | PROG NOTE ---
[address] [address] PROGRESS NOTE PATIENT: TRISTAN CAZARES : 1955 MR#: [id number] ADMIT: 02/15/2017 JOB ID: [id number] DATE: 02/22/2017 MEDICAL ONCOLOGY PROGRESS NOTE: The patient has remained afebrile since yesterday. On reviewing the notes of the nursing staff, he preferred not to have a PERSONAL SECRETARY pump due to "the way it was making him feel." He did receive a platelet transfusion yesterday, which raised his platelet count from 43 to 54. In my communication with his nurse, he received the second unit after that today. The level after that unit has not been checked and will be likely with tomorrow morning's labs. The patient remains afebrile and his cultures, so far, are negative. ASSESSMENT: A 61-year-old admitted with adrenal hemorrhage and a history of myeloproliferative disorder, as summarized in my previous note. His thrombocytopenia is slightly better with the platelet transfusion yesterday. We would expect tomorrow to be also slightly further improved after today's transfusion. I am adding a peripheral blood smear to be reviewed by hematopathology and a PTT, along with heparin-induced antibody titer. He is remaining off aspirin and anticoagulation, as well as off hydroxyurea.
[2017-02-23] VITALS (12 sets, daily range): BP systolic 103–169; BP diastolic 61–90; PULSE 70–96; RESP 15–18; O2SAT 96–98
[2017-02-23] MEDS: Hydrocortisone 50 mg/mL 2 mL Inj IVPUSH SCH ×4 (04:42→21:38)
[2017-02-23 05:25] LABS: BASOPHILS % (AUTO) 0 % (0-3); EOSINOPHILS % (AUTO) 2 % (0-5); MONOCYTES % (AUTO) 7 % (4-12); Mean Corpuscular Hemoglobin 34.7 pg (27.0-35.0); NEUTROPHILS % (AUTO) 47 % (40-74); Platelet Count 55 bil/L (150-400)
[2017-02-23] MEDS: 0.9% Sodium Chloride 1,000 ML IV SCH ×2 (06:08→19:10)
--- NOTE | 2017-02-23 10:13 | CCS NOTE ---
[facility] [address] [place] [address], [address] [address] MEDICAL ONCOLOGY OFFICE NOTE PATIENT: TRISTAN CAZARES : 1955 MR#: [id number] DATE: 02/15/2017 JOB ID: [id number] DATE: 02/23/2017 HISTORY OF PRESENT ILLNESS: The patient reports that his pain in the flank area has improved. He has been ambulating in the hallway and he has not had any further fevers. He has received 2 units of platelets, one on February 22, the second one on February 21, and this has raised his platelet count only marginally from 42-55. LABORATORIES: Show a white count of 4.0 with a left shift associated with his myeloproliferative disorder. His platelet count is currently 55. Upon admission, he was severely anemic with a hemoglobin of 7.4 on February 15, and was transfused with also packed red cells. His hemoglobin came up to 9.5, but has been drifting down again. Particularly from yesterday to today, hemoglobin has dropped from 8.5-7. PTT is normal with 30, INR normal with 1.0. Fibrinogen nonsuppressed, and therefore no evidence of DIC. Peripheral smear shows no evidence of schistocytes. REVIEW OF SYSTEMS: Upon questioning about his bowel habits, he does reveal to me that he did have black-colored stool apparently a couple of weeks ago. He has never had a colonoscopy. PHYSICAL EXAMINATION: On exam, his hypotension has improved after holding his blood pressure medication and starting him on some , and blood pressure is 103/61 this morning. O2 sat 97% on room air. Abdomen nontender. 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 At that time, he also had a pulmonary embolus and a intracardiac thrombus, and has chronic left ventricular dysfunction with an ejection fraction of 35%. He has been anticoagulated and placed on hydroxyurea, with good control of his counts, normalization of his platelets, and I had seen him fairly recently in the clinic in November, at which time his platelet counts were in the order of 200,000, white count 6000, and normal hemoglobin on hydroxyurea. He had presented on February 15 with flank pain on the left side resembling left adrenal hemorrhage on CT scan that then later during this hospital stay, suggests also hemorrhage in the other side on the right adrenal gland. This accompanied with substantial drop of his counts. On admission, his platelet count was around 120, and now has dropped in the 40s. His hemoglobin was down to 7.5. His INR was actually subtherapeutic on admission with only around 1.5, and he was also previously on baby aspirin. Both hydroxyurea and warfarin have been held. He has no evidence of DIC, with a currently normal INR and PTT, and has required 2 units of platelets transfused over the past 48 hours, only raising his platelet count from 42-55. He had blood transfusion upon admission, raising his hemoglobin to around 9.5, which has drifted down now, and the current hemoglobin today is 7 from 8.5 yesterday. Upon specific question, I asked him today, it turns out that he did have some black stools and he has never had a colonoscopy. It is certainly possible that he has some GI bleed explaining the over-consumption, and therefore, I recommend a Gastroenterology consultation for endoscopy evaluation. The other differential diagnosis would be that his bone marrow is becoming deficient in blood production, but it would be less likely given the sudden change in his counts compared to outpatient readings. Of note, I have repeated his echocardiogram a couple of months ago, and the previous intracardiac thrombus that he had in 2014 is no longer present. For now, he will stay off anticoagulation. The Yellow team hospitalist was contacted to discuss these issues. I also recommend transfusing him with 2 units of packed red cells today.
--- NOTE | 2017-02-23 11:31 | PCM.PNMED ---
Subjective Date of Service Feb 23, 2017 Subjective He had dark stools overnight. No history of GI bleeding. He does have some left groin pain reminiscent of his hernia which has been repaired. No nausea or epigastric pain. His flank pain is improving. No cough or shortness of breath. Spoke with his oncologist, who requests 2 units of packed blood cells today and GI consultation for endoscopy and probable colonoscopy. No overnight events. Exam Vital Signs Vital Sign - Last Date Time Temp Pulse Resp B/P Pulse Ox O2 Delivery O2 Flow Rate FiO2 02/23/17 07:38 36.6 83 18 103/61 97 Room Air Intake and Output 02/22/17 02/22/17 02/23/17 Cumulative From/Thru 15:00 23:00 07:00 02/15/17 00:07 - 02/23/17 04:59 Intake Total 100 ml 1040 ml 1224 ml 70141 ml Output Total 800 ml 1070 ml 7247 ml Balance -700 ml -30 ml 1224 ml 7949 ml Intake Oral 100 ml 1040 ml 73322 ml IV Total 1224 ml 4054 ml Packed Cells 636 ml Output Urine Total 800 ml 1070 ml 7045 ml Stool Total 200 ml Emesis 2 ml # Voids 2 16 # Bowel Movements 5 Exam Alert and oriented -3, no distress. Fluent speech Anicteric sclera. Lungs are clear with normal rate and effort Heart is regular without murmur gallop or rub Abdomen soft nontender, flat Extremities are free of edema. Skin is free of rash or lesions. He is pale IVs and Medications Medications Reviewed: Medications were reviewed in detail Lab and Diagnostics Result Diagram: 02/23/1740902/23/17409 X-Rays, CTs and MRIs CT Abdomen 02/15/17 CONCLUSION: Acute left adrenal hematoma measuring 2.7 x 4 x 4 cm with mild surrounding stranding. Normal right adrenal gland. Mild diverticulosis without diverticulitis. Transmitted to the ED at 03:14 by Silvio Jimenez M.D Assessment & Plan Mr. Lay is a 61-year-old male with a prior medical history significant for pulmonary embolism, CAD with 2 stents, hypertension, hyperlipidemia, and a myeloproliferative disorder who presented to the emergency department with ongoing back pain. bilateral adrenal hematoma with possible ongoing bleed, present on admission. Acute. Stable, On admission, CT abd showed left adrenal fat stranding, but now shows a 2.7 x4 x 4 cm hematoma in the region, Patient does not appear to be in adrenal insufficiency; there is no hyperpigmentation, hypotension, hyperkalemia , or hyponatremia present. Pt was stable then developed new pain on Rt flank, repeat CT showed overall increase in size of Left adrenal gland and new Rt adrenal gland mass suggestive of new onset bleeding. - continue close observation especially now given bilateral hemorrhage, higher risks of adrenal insufficiency, -as per Surgery consult, there is no surgical indication. discussed - no signs of adrenal insufficiency, will consider low dose steroid per , - Holding aspirin, warfarin at this time. No heparin/Lovenox DVT prophylaxis ordered. The patient requires 2 more units of blood cells today. The question is whether or not he is having a concomitant gastrointestinal bleed. Acute blood loss anemia, POA, from adrenal hemorrhage, Pt required transfusion H &H was 9.3/27.2 in the ED, dropped to 8.3/24.4. on 02/15- ordered for 1U. 02/17 another 1unit. US of RP didn't show any extravasation but repeat CT showed new Rt adrenal hemorrhage, no active extravasation. -cbc slowly trending down today, -We will give 2 more units of packed cells today. GI consult for possible GI bleed and endoscopy with probable colonoscopy. GI consult was called today to Dr. Calderón Possible melanotic stool, new as of last night. We will transfuse today, Protonix 40 IV twice a day, and GI consult. Severe thrombocytopenia, POA, and stable., -trending down, -As per oncology will proceed with another platelet transfusion today premedicated with IV Benadryl and by mouth Tylenol. Patient currently is on higher dose hydrocortisone. -As per oncology yesterday: We will continue to follow recommendations of oncology. bilateral flank Pain, present on admission. Acute and improving. Attempt conversion to oral analgesia. Myeloproliferative disorder, present on admission. Chronic. - increasing lymphocytes is concerning close to 50%, consulted 02/20, awaits recommendation - Patient followed by Dr. Nieves, held hydroxyurea, chronic, stable Hypertension, present on admission. Chronic and stable. - Continue lisinopril 20 mg daily - Continue metoprolol tartrate 50 mg daily Hyperlipidemia, present on admission. Chronic and stable. - Patient has had 2 stents placed (LAD, diagonal) - Continue atorvastatin 40 mg daily Acetaminophen as needed for mild pain, fever, headache. Bowel regimen as needed. Zofran as needed for nausea. Subcutaneous heparin held at this time. dispo: pending given acute status VTE Mechanical Devices: Intermittant Pneumatic CD Resuscitation Status: CPR: Attempt Resuscitation Oz Zarco MD Feb 23, 2017 11:30
--- NOTE | 2017-02-23 11:46 | NUR ---
NUTRITION FOLLOW UP: ASSESS: 61 YO M admitted for bilateral adrenal hematoma. Pt on heart healthy diet with mostly good PO intake. Pt with possible GI bleed; awaiting GI consult and possible endoscopy. PMHx: Myeloproliferative disorder, CAD, HTN, dyslipidemia, low back pain, right shoulder dislocations. DIET: Heart healthy + Ensure BID. PO intake: 100%. LABS: Reviewed. Glu 133, (02/22): Alb 3.3. MEDICATIONS: Reviewed.Solu-Cortef, Colace, Senna, Miralax, Metamucil. GI: 2 BM 02/19. SKIN: No issues reported. ANTHROPOMETRICS: Current Wt: 80.9 kg, BMI: 24.2 kg/m2. Admit weight: 81.8 kg, IBW: 77.6 kg (105% IBW). Wt loss of 4.4 kg (5.1% of BW) X 5 months = not significant. ESTIMATED NEEDS: Calories: 1442-9325 kcal/day (25-30 kcal/kg BW) Protein: 81-97 g/day (1.0-1.2 g/kg BW) NUTRITION DIAGNOSIS: 1) Inadequate oral intake related to inability to consume sufficient energy, as evidenced by 6.5% weight loss x 5 months.---IMPROVED. Pt with good PO intake. INTERVENTION: 1) Continue current diet and supplements as ordered. MONITOR/EVALUATE: Diet tolerance, PO intake, labs, wt, GI/nutrition status. Follow per low nutrition risk guidelines.
[2017-02-23] MEDS: HYDROcodone-APAP 5-325 mg Tablet PO PRN (12:13)
[2017-02-23] MEDS: 0.9% Sodium Chloride 250 ML IV SCH (14:52)
[2017-02-23] MEDS ORDERED: PEG/Electrolytes 4,000 mL Solution PO SCH (15:05)
--- NOTE | 2017-02-23 16:14 | PCM.CHPMED ---
Subjective Date of Service: Feb 23, 2017 Provider requesting consult: Oz Zarco MD Primary Physician: Admitting Physician: Deyanira Lehman DO Primary Care Physician: Jarrell Gonzalez MD Attending Physician: Oz Zarco MD Admit Status: From the Emergency Department Chief Complaint: Chief Complaint: Back Pain History of Present Illness: Mr. Lay is a 61-year-old male with a past medical history significant for CAD with 2 stents, pulmonary embolus and a intracardiac thrombus, left ventricular dysfunction with an ejection fraction of 35%, HTN, and a myeloproliferative disorder who presented to the emergency department with complaint of back/flank pain. Patient's left sided-flank pain attributed to adrenal hemorrhage noted on CT scan at presentation after which he developed right flank pain several days later. A repeat CT scan was done, which showed a right-sided adrenal hemorrhage. Imaging findings and patient's symptoms correlated with a substantial drop in platelets as well as hemoglobin and hematocrit. He subsequently has received several units of both pRBCs and platelets with little improvement in his blood counts. He has been anticoagulated with warfarin, aspirin and was placed on hydroxyurea, as an outpatient with good response and normalization of platelets on lab work in November. However, his anticoagulation has been on hold per Hematology. Despite this his blood counts continue to drop and he now has dark colored stools for the past couple of days. He continues to report back pain as well as lower abdominal pain. He states that the pain was not as noticeable when he was receiving Dilaudid. However, he states that he needed this initially because the flank pain was so intense. He attributes the change the character of his abdominal pain to decreased pain medications and a better awareness of his body. He describes the pain as intermittent and similar in nature the pain he experienced with his prior inguinal hernias. He reports mild nausea, but denies any chest pain, shortness of breath, vomiting, headache, pain on inspiration, or any change in bowel or bladder habits. GI consulted for anemia in setting of melanotic stool in a patient with no prior colonoscopy. Review of Systems: A comprehensive review of systems was conducted with the patient and found to be negative except as above in the History of Present Illness. PMH Past Medical History Coronary artery disease. Angioplasty to the mid left anterior descending. Angioplasty to the diagonal branch of left anterior descending. Hypertension. Hyperlipidemia. Low Back Pain Right Shoulder Dislocations . Surgical History Coronary artery stents x2 Bilateral inguinal hernia repair . Home Medications Aspirin 81mg po daily Atorvastatin 40mg po daily Hydroxyurea 500mg po bid Mon-Fri Hydroxyurea 500mg po Sat and Sun Lisinopril 20mg po daily Metoprolol Tartrate 50mg po daily Warfarin Sodium 7.5mg po 4days/week Warfarin Sodium 5mg po 2days/week Centrum Silver Ultra Men's Tab 1 EACH PO Allergies: Coded Allergies: No Known Allergies (Unverified , 07/01/11) Family History Family History Coronary artery disease Social History Hx Alcohol Use: Yes (freq)Hx Substance Use: Yes (Occasional marijuana)Hx Tobacco Use: Yes (2 cigarettes a day) Smoking Status: Current Some Day Smoker Living Arrangement: with Family Exam Vital Signs Vital Sign - Last Date Time Temp Pulse Resp B/P Pulse Ox O2 Delivery O2 Flow Rate FiO2 02/23/17 12:35 36.7 80 122/77 96 Room Air 02/23/17 07:38 18 Intake and Output 02/22/17 02/22/17 02/23/17 Cumulative From/Thru 15:00 23:00 07:00 02/15/17 00:07 - 02/23/17 04:59 Intake Total 100 ml 1040 ml 1224 ml 19546 ml Output Total 800 ml 1070 ml 7247 ml Balance -700 ml -30 ml 1224 ml 7949 ml Intake Oral 100 ml 1040 ml 05185 ml IV Total 1224 ml 4054 ml Packed Cells 636 ml Output Urine Total 800 ml 1070 ml 7045 ml Stool Total 200 ml Emesis 2 ml # Voids 2 16 # Bowel Movements 5 General: Well-developed, pale, elderly male in no acute distress. HEENT: Normocephalic, atraumatic. PERRLA, Anicteric sclera. Mucous membranes moist/pink Lungs: Clear to auscultation bilaterally with no crackles, wheezes, or rhonchi. Cardiovascular: Regular rate/rhythm. No murmurs/rubs/gallops Abdomen: Soft, Non-tender, Non-distended, No masses, Normoactive bowel tones Extremities: No edema or cyanosis. Skin: Warm and dry. No obvious rashes or ulcerations Neurological: AOx3, No focal neurologic deficit. Normal speech Lab and Diagnostics Labs Laboratory Tests Test 02/22/17 16:16 02/23/17 04:10 Activated Partial Thromboplast Time 30.1sec (22.8-33.0) White Blood Count 4.0th/mm3 (3.8-10.1) Red Blood Count 2.02mil/mm3 (4.40-5.80) Hemoglobin 7.0g/dL (13.8-17.2) Hematocrit 21.0% (41.0-50.0) Mean Corpuscular Volume 104.0fL (81-100) Mean Corpuscular Hemoglobin 34.7pg (27.0-35.0) Mean Corpuscular Hemoglobin Concent 33.3% (32.0-37.0) Red Cell Distribution Width 20.6% (12.3-15.4) Platelet Count 55bil/L (150-400) Neutrophils (%) (Auto) 47% (40-74) Lymphocytes (%) (Auto) 30% (14-46) Monocytes (%) (Auto) 7% (4-12) Eosinophils (%) (Auto) 2% (0-5) Basophils (%) (Auto) 0% (0-3) Band Neutrophils % 10% (1-5) Metamyelocytes % 2% (0-0) Myelocytes % 2% (0-0) Sodium Level 139mEq/L (134-144) Potassium Level 4.4mEq/L (3.5-5.2) Chloride Level 104mEq/L (97-108) Carbon Dioxide Level 21mmol/L (18-29) Blood Urea Nitrogen 24mg/dL (8-27) Creatinine 0.92mg/dL (0.76-1.27) Estimat Glomerular Filtration Rate 89mL/min (>59) Glucose Level 133mg/dL (60-99) Calcium Level 8.5mg/dL (8.5-10.1) Microbiology 02/21/17 Blood Culture - NO GROWTH AFTER 24 HOURS Result Diagram: 02/23/1740902/23/17409 X-Rays, CTs and MRIs 02/15/17 - CT ABDOMEN AND PELVIS WITH CONTRAST IMPRESSION: 1. Acute left adrenal change most consistent with hemorrhagic change. Right adrenal is normal. 2. Ectasia and atherosclerosis of the aorta or to and iliac vessels. Colonic diverticula primarily sigmoid. Approved by: Jonatan Hdz M.D. on 02/15/2017 at 9:03 02/16/17 - US ABDOMEN, LIMITED IMPRESSION: Resolving left adrenal hemorrhage, no sign of extension of the left adrenal hematoma elsewhere. Approved by: Carson Vance M.D. on 02/16/2017 at 11:53 02/19/17 - CT ABDOMEN AND PELVIS WITH CONTRAST IMPRESSION: 1. Bilateral adrenal masses most likely secondary to adrenal hemorrhage. 2. Mild stranding around pancreas. Recommend clinical correlation for mild pancreatitis. 3. Splenomegaly. This finding is nonspecific and may be secondary to infectious , inflammatory or neoplastic etiology. Recommend clinical correlation and follow up. 4. Diverticulosis. No active diverticulitis. Approved by: Jose Regan M.D. on 02/19/2017 at 22:25 . Assessment & Plan Assessment 61-year-old gentleman with a history of CAD with 2 stents, pulmonary embolus and a intracardiac thrombus, chronic left ventricular dysfunction with an ejection fraction of 35%, hypertension, and a myeloproliferative disorder who presented to the emergency department with complaint of back/flank pain. Subsequently found to have severe thrombocytopenia and anemia secondary to acute blood loss from adrenal hemorrhage. GI consulted for anemia possibly secondary to GI bleed. Anemia secondary to acute blood loss from adrenal hemorrhage. Now with melanotic stool and concern for concomitant GI bleed. - DDx for melena: gastric or duodenal ulcers, esophagitis, and gastritis, vascular lesions, and neoplasms. - Repeat CT showed overall increase in size of Left adrenal gland and new right adrenal gland mass suggestive of new onset bleeding. - General surgery consulted 02/19, no surgical indication as per . - No history of GI bleeding and patient has never had a colonoscopy. - Monitor H/H, transfuse blood products as needed to maintain Hb > 9. - Patient has been anticoagulated with Hydroxyurea, aspirin and warfarin with good response. Near normal blood counts on recent outpatient records. - Significant drop in platelets from 120 on admission now in the 40s despite 2 units of transfused platelets. No evidence of DIC, normal INR and PTT. - Protonix 40 IV twice a day - Holding aspirin, warfarin at this time. - Clear liquid diet, start bowel prep this afternoon - EGD and colonoscopy tomorrow. Additional problems managed by primary medicine team and/or Hematology: Severe thrombocytopenia Myeloproliferative disorder Hypertension Hyperlipidemia . Problems: VTE Mechanical Devices: Intermittant Pneumatic CD Resuscitation Status: CPR: Attempt Resuscitation Attending Statement Patient seen and examined. Agree with assessment and plan as described by Dr Marques. Anemia/thrombocytopenia. Melenic stool. EGD/colon planned for tomorrow. If platelets drop further may need to give platelet transfusion prior to endo. Louisa Marques DO Feb 23, 2017 13:19 Chris Calderón MD Feb 23, 2017 22:09
[2017-02-23] MEDS ORDERED: Pantoprazole 4 mg/mL 10 mL Inj IVPUSH SCH (16:30)
[2017-02-23] MEDS: Pantoprazole 40 mg ER24 Tablet PO SCH (16:56)
--- NOTE | 2017-02-23 18:28 | NUR ---
Blood: Pt receiving 2nd of 2 units PRBCs, transfusions well tolerated. On clear liquid diet, working on Golytely prep, planned EGD/colonoscopy in AM. Up ad sumit in room/medrano, no gait instability noted. Care ongoing.
[2017-02-24] VITALS (10 sets, daily range): BP systolic 127–148; BP diastolic 69–84; PULSE 55–83; RESP 16–26; O2SAT 97–99
[2017-02-24 03:37] LABS: Mean Corpuscular Hemoglobin 34.4 pg (27.0-35.0); Mean Corpuscular Volume 101.4 fL (81-100); Platelet Count 47 bil/L (150-400)
[2017-02-24 04:01] LABS: BASOPHILS % (AUTO) 0 % (0-3); EOSINOPHILS % (AUTO) 0 % (0-5); NEUTROPHILS % (AUTO) 43 % (40-74)
[2017-02-24 04:04] LABS: MONOCYTES % (AUTO) 7 % (4-12)
[2017-02-24] MEDS: Hydrocortisone 50 mg/mL 2 mL Inj IVPUSH SCH ×4 (04:12→22:18)
[2017-02-24] MEDS: 0.9% Sodium Chloride 1,000 ML IV SCH ×3 (05:12→15:18)
--- NOTE | 2017-02-24 06:04 | NUR ---
No adverse reaction after administration of PRBCs last night, hgb 9.6 this AM. No s/s bleeding observed. Golytely prep completed by 0000, NPO since that time, plan for EGD and colonoscopy today. VSS, c/o mild headache resolved with APAP x1.
[2017-02-24] MEDS: Pantoprazole 40 mg ER24 Tablet PO SCH ×2 (07:58→16:12)
[2017-02-24] MEDS: HYDROcodone-APAP 5-325 mg Tablet PO PRN (09:45)
[2017-02-24] MEDS: 0.9% Sodium Chloride 250 ML IV SCH (11:15)
--- NOTE | 2017-02-24 13:07 | PCM.HPANE ---
Patient Data Surgeon Admitting Provider:Deyanira Lehman DO Attending Provider:Oz Zarco MD Primary Care Physician:Jarrell Gonzalez MD Other Provider: Reason for Visit L Adrenal Hemorrhage L ADRENAL HEMORRHAGE Ht/WT & BMI Height (Feet): 6 Height (Inches): 1.00 Weight (Kilograms): 82.300 Body Mass Index 24.07 Allergies Coded Allergies: No Known Allergies (Unverified , 07/01/11) Past Anesthesia History Anesthesia History: Denies:: Anesthesia Reactions Diabetes History Hx Diabetes?: No MRSA MRSA: No Medications Hypertension Medication: Yes Home Meds Incl Beta Jeb: Yes Active Scripts Hydrocodone-Acetaminophen 5-325 mg 1 Each Tablet1-2 Tablet PO Q4H PRN For Mild Pain #10 TABLET Prov:Vishal Farris MD 02/18/17 Lisinopril 20 Mg [id number] Mg PO DAILY #30 TABLET Prov:Nacho Ansari DO 05/16/15 Aspirin 81 Mg [id number] Mg PO DAILY 30 Days Ref 0 Prov:Fernando Schulte DO 05/11/15 Reported Medications Astragalus Root 1 Gm Powder1 Capsule PO DAILY 02/15/17 Grape Seed Extract 50 Mg [id number] Mg PO DAILY 02/15/17 Multivits-Min/FA/Lycopene/Lut (Centrum Silver Tablet)1 Each Tablet1 Tablet PO DAILY 02/15/17 Vit B Comp/C/FA/Iron/Vit E (Vitamin B Complex Tablet)1 Each Tablet1 Tablet PO DAILY 02/15/17 Hydroxyurea 500 Mg [id number] Mg PO Daily Sat, Sun 02/10/16 Warfarin Sodium 5 Mg Tablet5 Mg PO Every other day 10/28/15 Warfarin Sodium 7.5 Mg Tablet7.5 Mg PO Every other day 10/28/15 Metoprolol Tartrate 50 Mg [id number] Mg PO BID 06/30/15 Hydroxyurea (Hydrea)500 Mg [id number] Mg PO BID Mon thru Tue06/15/15 Atorvastatin (Lipitor)40 Mg [id number] Mg PO HS 06/15/15 History History of ENT Problems?: Yes HEENT History: Positive for:: Sinus Problem Denies:: Cataracts Dysphagia Glaucoma Denture Type: None Teeth Condition: Within Normal Limits Hx of Heart Problems?: Yes Cardiovascular History: Positive for:: Cardiac Surgery (coronary stentx2 placed 2010November [address] [facility]) Hypertension Irregular Heartbeat ("minimal") Denies:: Chest Pain Congestive Heart Failure (pt denies) Edema (pt denies) Heart Murmur Pacemaker Thrombophlebitis Hx of Respiratory Problem?: No Respiratory History: Denies:: Asthma COPD Chest Surgery Dyspnea Emphysema Hemoptysis Pneumonia Tuberculosis Hx Neurologic Problems?: No Neurological History: Positive for:: CVA (TIA ) Denies:: Alzheimer's Disease Dementia Dizziness Headaches Parkinson's Disease Seizures Hx of GI Problems?: Yes Other GI Pertinent History: Left adrenal bleed present Hx of Problems?: No Genitourinary History: Denies:: HX of Hemodialysis Kidney Stones Urinary Tract Infection HX of Peritoneal Dialysis: No Male Hx: Denies:: Prostate Problems Scrotal Mass Testicular Surgery Hx Musculoskeletal Problems?: Yes Musculoskeletal History: Positive for:: Back Injury (Sciatic pain) Musculoskeletal Trauma (multiple construction accidents, rib fractures) Denies:: Joint Replacement Hx of Psycho/Social Problems?: No Psycho Social History: Denies:: Anxiety Bipolar Disorder Hx Depression Suicide Attempt Hx Surgeries?: Yes (Coronary stent, skin ca removal, BIH repair.) Hx Any Other Health Problems?: Yes Other History: Positive for:: Cancer (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; new dx leukemia) Hospitalization (diverticulitis, IA, stent, PE) Denies:: Endocrine Disease Thyroid Disease History Blood Transfusions: Denies:: Blood Transfuse Reaction Blood Transfusions Hx Diabetes: No Hx Alcohol Use: Yes (freq)Hx Substance Use: Yes (Occasional marijuana) Smoking Status: Current Some Day Smoker Have You Smoked inLast 12 mo: Yes Stop/Bang Treated for Sleep Apnea?: No Do You Have a CPAP Machine?: No S-Snoring: Do You Snore Loudly: No T-Tired: feel tired, fatigued: No O-Obsered: Observed not breath: No P-Blood Pressure: treated: No B- Body Mass Index > 35 kg/m2: No A- Age over 50: Yes N- Neck Large Circumference: No G- Gender Male: Yes PREETI Total Score: 1 PREETI Risk Assessment: Low Risk, <3 Yes Risk Assessment Category Category 1A: Patient has history of documented sleep apnea, and HAS NOT received any narcotic, sedative or anesthesia administration during this stay. Category 1B: Patient has history of documented sleep apnea, and HAS received any narcotic , sedative or anesthesia administration during this stay Category 2: Patient has SUSPECTED Obstructive Sleep Apnea, and HAS received any narcotic , sedative or anesthesia administration during this stay. Category 3: Patient has SUSPECTED Obstructive Sleep Apnea and HAS NOT received narcotic, sedative or anesthesia administration during this stay. Category 4: Outpatient in Procedural Areas with known sleep apnea or who screen positive for High Risk via the STOP/BANG questionnaire. Exam Exam Vital Signs Vital Signs Date Time Temp Pulse Resp B/P Pulse Ox O2 Delivery O2 Flow Rate FiO2 02/24/17 11:52 36.6 65 18 137/75 97 Room Air 02/24/17 07:59 68 18 146/84 97 Room Air General Appearance: Alert, Oriented X3, Cooperative, No Acute Distress HEENT/AIRWAY: MP 2, Neck Movement (slightly limited), Mouth Opening (3FB) Lungs: Normal Air Movement Heart: Exam Unremarkable Meds/Labs/Diagnostics Admission Meds Current Medications Pantoprazole (Protonix) 40 mg BIDAC PO Last administered on 02/24/17t 07:58; Start 02/23/17 at 16:30 Labs Test 02/15/17 00:54 02/15/17 02:50 02/17/17 06:27 02/19/17 14:50 Troponin T 0.010ug/L (0.0-0.011) Urine Color Yellow (YELLOW) Urine Appearance Hazy (CLEAR,HAZY) Urine pH 6.0 (5.0-8.0) Urine Specific Howard 1.033 (1.003-1.035) Urine Protein Tracemg/dL (NEG,TRACE) Urine Glucose (UA) Negativemg/dL (NEGATIVE) Urine Ketones Negativemg/dL (NEGATIVE) Urine Occult Blood Trace (NEGATIVE) Urine Nitrite Negative (NEGATIVE) Urine Bilirubin Negative (NEGATIVE) Urine Urobilinogen Normalmg/dL (NORMAL) Urine Leukocyte Esterase Negative (NEGATIVE) Urine RBC 0-2/hpf (0-2) Urine WBC 0-5/hpf (0-5) Urine Epithelial Cells Occasional/hpf (NONE-MOD) Urine Crystals None seen (NONE SEEN) Urine Bacteria Few/hpf (NONE-FEW) Urine Hyaline Casts Rare/lpf (NONE) Urine Granular Casts None seen (NONE SEEN) Urine Waxy Casts None seen (NONE SEEN) Urine Red Blood Cell Casts None seen (NONE SEEN) Urine White Blood Cell Casts None seen (NONE SEEN) Urine Mucus Present (None Seen) Urine Trichomonas None seen (NONE SEEN) Urine Yeast None (NONE SEEN) Urinalysis Comment None Urine Culture Reflexed Not indicated Magnesium Level 1.7mg/dL (1.6-2.6) Prothrombin Time 11.3sec (8.1-12.5) Prothromb Time International Ratio 1.05ratio Test 02/20/17 10:13 02/21/17 17:26 02/21/17 20:48 02/22/17 03:30 Fibrinogen 631mg/dL (157-380) Nucleated Red Blood Cells 2/100 WBC (0-24) Lactic Acid Level 0.8mmol/L (0.4-2.0) Cortisol 55.6ug/dL (.) Blood Smear Pathologist Review Total Bilirubin 0.5mg/dL (0.0-1.2) Aspartate Amino Transf (AST/SGOT) 20U/L (0-50) Alanine Aminotransferase (ALT/SGPT) 24U/L (0-44) Alkaline Phosphatase 219U/L (25-160) Total Protein 6.0g/dL (6.4-8.4) Albumin 3.3g/dL (3.4-5.0) Test 02/22/17 16:16 02/24/17 03:10 Activated Partial Thromboplast Time 30.1sec (22.8-33.0) Heparin-PF4 Ab Optical Density 0.219OD (<0.4) Heparin-PF4 Antibody Interpretation Not indicated White Blood Count 6.9th/mm3 (3.8-10.1) Red Blood Count 2.79mil/mm3 (4.40-5.80) Hemoglobin 9.6g/dL (13.8-17.2) Hematocrit 28.3% (41.0-50.0) Mean Corpuscular Volume 101.4fL (81-100) Mean Corpuscular Hemoglobin 34.4pg (27.0-35.0) Mean Corpuscular Hemoglobin Concent 33.9% (32.0-37.0) Red Cell Distribution Width 19.7% (12.3-15.4) Platelet Count 47bil/L (150-400) Neutrophils (%) (Auto) 43% (40-74) Lymphocytes (%) (Auto) 26% (14-46) Monocytes (%) (Auto) 7% (4-12) Eosinophils (%) (Auto) 0% (0-5) Basophils (%) (Auto) 0% (0-3) Band Neutrophils % 13% (1-5) Metamyelocytes % 5% (0-0) Myelocytes % 6% (0-0) Promyelocytes % 0% (0-0) Hematology Comments Sodium Level 142mEq/L (134-144) Potassium Level 3.5mEq/L (3.5-5.2) Chloride Level 107mEq/L (97-108) Carbon Dioxide Level 19mmol/L (18-29) Blood Urea Nitrogen 16mg/dL (8-27) Creatinine 0.88mg/dL (0.76-1.27) Estimat Glomerular Filtration Rate 93mL/min (>59) Glucose Level 132mg/dL (60-99) Calcium Level 8.4mg/dL (8.5-10.1) Plan Impression Patient chart reviewed, patient interviewed and anesthestic plan with risks, benefits, and alternatives discussed, and informed consent obtained. ASA Physical Status: ASA2 Mod Systemic Disease Anesthetic Plan: MAC Bene/Risks/Altern/Consents: Yes HP Complete Prior to Induction: Yes Carson Cotto MD Feb 24, 2017 13:06
--- NOTE | 2017-02-24 13:53 | PCM.PNMED ---
Subjective Date of Service Feb 24, 2017 Subjective He is doing well. He denies any problems overnight with rectal bleeding. He did undergo appropriate without difficulty. No abdominal pain. No chest pain, no dyspnea. No fevers or chills. No overnight events noted. Exam Vital Signs Vital Sign - Last Date Time Temp Pulse Resp B/P Pulse Ox O2 Delivery O2 Flow Rate FiO2 02/24/17 11:52 36.6 65 18 137/75 97 Room Air Intake and Output 02/23/17 02/23/17 02/24/17 Cumulative From/Thru 15:00 23:00 07:00 02/15/17 00:07 - 02/24/17 06:42 Intake Total 200 ml 3275 ml 1714 ml 11451 ml Output Total 700 ml 7947 ml Balance -500 ml 3275 ml 1714 ml 07347 ml Intake Oral 200 ml 1140 ml 1000 ml 50039 ml IV Total 1535 ml 714 ml 6303 ml Packed Cells 600 ml 1236 ml Output Urine Total 700 ml 7745 ml Stool Total 200 ml Emesis 2 ml # Voids 1 4 1 22 # Bowel Movements 2 5 12 Exam Alert and oriented -3, no distress. Fluent speech Anicteric sclera. Lungs are clear with normal rate and effort Heart is regular without murmur gallop or rub Abdomen soft nontender, flat Extremities are free of edema. Skin is free of rash or lesions. IVs and Medications Medications Reviewed: Medications were reviewed in detail Lab and Diagnostics Result Diagram: 02/24/1730902/24/17309 X-Rays, CTs and MRIs CT Abdomen 02/15/17 CONCLUSION: Acute left adrenal hematoma measuring 2.7 x 4 x 4 cm with mild surrounding stranding. Normal right adrenal gland. Mild diverticulosis without diverticulitis. Transmitted to the ED at 03:14 by Silvio Jimenez M.D Assessment & Plan Mr. Lay is a 61-year-old male with a prior medical history significant for pulmonary embolism, CAD with 2 stents, hypertension, hyperlipidemia, and a myeloproliferative disorder who presented to the emergency department with ongoing back pain. bilateral adrenal hematoma with possible ongoing bleed, present on admission. Acute. Stable, present On admission, CT abdomen showed left adrenal fat stranding, but now shows a 2.7 x4 x 4 cm hematoma in the region, Patient does not appear to be in adrenal insufficiency; there is no hyperpigmentation, hypotension, hyperkalemia, or hyponatremia present. Pt was stable then developed new pain on Rt flank, repeat CT showed overall increase in size of Left adrenal gland and new Rt adrenal gland mass suggestive of new onset bleeding. - continue close observation especially now given bilateral hemorrhage, higher risks of adrenal insufficiency, -as per Surgery consult, there is no surgical indication. discussed - no signs of adrenal insufficiency, will consider low dose steroid per , - Holding aspirin, warfarin at this time. No heparin/Lovenox DVT prophylaxis ordered. The patient requires 2 more units of blood cells yesterday. The question is whether or not he is having a concomitant gastrointestinal bleed. He will undergo endoscopy plus or minus colonoscopy today. Acute blood loss anemia, from adrenal hemorrhage, POA and improved. Pt required transfusion H&H was 9.3/27.2 in the ED, dropped to 8.3/24.4. on 02/15- ordered for 1U. 02/17 another 1unit. US of RP didn't show any extravasation but repeat CT showed new Rt adrenal hemorrhage, no active extravasation. -cbc slowly trending down today, -We will give 2 more units of packed cells today. GI consult for possible GI bleed and endoscopy with probable colonoscopy. GI consult was called yesterday to Dr. Calderón. Patient will undergo endoscopy plus or minus colonoscopy today. Possible melanotic stool, new as of last night. Plan is endoscopy as outlined above. We will transfuse today, Protonix 40 IV twice a day, and GI consult. Severe thrombocytopenia, POA, and stable., -trending down, -As per oncology will proceed with another platelet transfusion today premedicated with IV Benadryl and by mouth Tylenol. Patient currently is on higher dose hydrocortisone. -As per oncology yesterday: We will continue to follow recommendations of oncology. No further platelets today. The platelets are remains low but stable. bilateral flank Pain, present on admission. Acute and improving. Attempt conversion to oral analgesia. Myeloproliferative disorder, present on admission. Chronic. Stable. - increasing lymphocytes is concerning close to 50%, consulted 02/20, awaits recommendation - Patient followed by Dr. Nieves, held hydroxyurea, chronic, stable Hypertension, present on admission. Chronic and stable. - Continue lisinopril 20 mg daily - Continue metoprolol tartrate 50 mg daily Hyperlipidemia, present on admission. Chronic and stable. - Patient has had 2 stents placed (LAD, diagonal) - Continue atorvastatin 40 mg daily Acetaminophen as needed for mild pain, fever, headache. Bowel regimen as needed. Zofran as needed for nausea. Subcutaneous heparin held at this time. VTE Mechanical Devices: Intermittant Pneumatic CD Resuscitation Status: CPR: Attempt Resuscitation Oz Zarco MD Feb 24, 2017 13:53
--- NOTE | 2017-02-24 13:59 | NUR ---
off unit: Pt off unit to Endo for planned EGD/colonoscopy
[2017-02-24] MEDS ORDERED: fentaNYL-PF 50 mCg/mL 2 mL Inj ONE (14:35)
--- NOTE | 2017-02-24 15:40 | PCM.ANEP1 ---
Post Anesthesia PACU Phase 1 Assessment Vital Signs Vital Signs Date Time Temp Pulse Resp B/P Pulse Ox O2 Delivery O2 Flow Rate FiO2 02/24/17 15:26 60 17 139/79 99 Room Air 02/24/17 14:00 36.6 59 16 132/74 97 Room Air 02/24/17 11:52 36.6 65 18 137/75 97 Room Air 02/24/17 07:59 68 18 146/84 97 Room Air Anesthetic Administered: MAC Level of Alertness: Awake, talking Pain: No Pain Scale Score: 3 Nausea or Vomiting: No CV Function & Hydration Stable: Yes Airway Device: Oxygen Delivery: Room Air Lungs: Normal Air Movement PACU Phase 2 Assessment Complications: No Follow up Care: No Patient Instructions Provided: N/A Carson Cotto MD Feb 24, 2017 15:40
--- NOTE | 2017-02-24 16:03 | ENDO ---
[address] [address] ENDOSCOPY PROCEDURE PATIENT: TRISTAN CAZARES : 1955 MR#: [id number] ADMIT: 02/15/2017 JOB ID: [id number] DATE OF SERVICE: 02/24/2017 PRIMARY PROVIDER: Jarrell Gonzalez MD PROCEDURE: Esophagogastroduodenoscopy and a colonoscopy. INDICATIONS: A 61-year-old male with a history of myeloproliferative disorder and anemia. He presented with thrombocytopenia and was found to have bilateral adrenal hemorrhage. He, however, has also had some dark stools and endoscopy was requested. EQUIPMENT: GIFH-180J and a PCFH-180AL SEDATION: Monitored anesthesia as provided by Dr. Carson Cotto. COMPLICATIONS: None identified. BOWEL PREPARATION: Fair. Very adequate exam. PROCEDURE INFORMATION: After the risks and benefits were explained, written and verbal informed consent was obtained. The patient was brought into the endoscopy suite and placed into the left lateral decubitus position. Sedation was achieved as above. The scope was introduced into the mouth through the bite block, and advanced to the second portion of the duodenum. The scope was slowly withdrawn to carefully examine the mucosa for any defects or lesions. Retroflexed views were accomplished in the stomach. The stomach was decompressed. The scope removed from the patient who tolerated the procedure well. The patient was then turned around. A digital rectal examination accomplished. Mild internal hemorrhoids noted. The scope was introduced into the rectum and advanced under direct visualization to the level of the cecum, as identified by the appendiceal orifice and ileocecal valve. The terminal ileum was briefly accessed. The scope then slowly withdrawn to carefully examine the mucosa for any defects or lesions. Multiple direct views were made through the dentate line for exclusion of pathology. The colon was decompressed. The scope removed from the patient who tolerated the procedure well. FINDINGS: 1. Duodenum: There was some scattered mild erythema and subtle erosive features in the duodenal bulb consistent with aspirin induced mucosal injury. No large ulcers. No mass lesions. No evidence of any new or old blood. The second portion of the duodenal mucosa appeared completely normal. 2. Stomach: No outlet obstruction. No ulcers. No mass lesions. No evidence of new or old blood in the stomach. Mild diffuse gastropathy. Retroflexed views of the LES disclosed a sliding hiatal hernia. 3. Esophagus: The squamocolumnar junction generally correlated with the top of the gastric folds. The GEJ was at about 43 cm from the incisors. No acute erosive changes. No strictures. No mass lesions. There were a couple of tongues of probable extension of the columnar mucosa up into the tubular esophagus. I would switch house operator this to perhaps be Moreno (C0 M0.5). Otherwise, no pathology appreciated in the esophagus. 4. Terminal ileum: The TI mucosa appeared completely normal, healthy, without any ulcers, erosions or erythema. Photograph was taken. There was a normal cedillo colored bile stained fluid coming down from further upstream. 5. Colon: Right at the ileocecal valve, there was a shallow superficial ulceration versus erosion. There was no suggestion of any surrounding or underlying neoplasia. I did not appreciate any colitis or other focus of inflammation throughout the colon. This lesion did appear moderately friable. Based on his low platelets, we elected to not pursue any biopsies at present time. There was some moderate diverticulosis in the left colon. In the rectum, there was an approximately 5 mm polyp that we left in situ as well. Throughout the colon, there was a normal bile-stained residual fluid and no evidence of any new or old blood. ENDOSCOPIC DIAGNOSES: 1. 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 2. Sliding hiatal hernia. 3. Gastropathy. 4. Mild proximal duodenopathy consistent with nonsteroidal antiinflammatory drug use. 5. No evidence of any active upper gastrointestinal bleeding or high risk stigmata. 6. Diverticulosis. 7. Hemorrhoids. 8. Colon polyp. 9. Ileocecal valve erosion -? Mild ischemic focus ? RECOMMENDATIONS: 1. Diet can be advanced as tolerated. 2. There are no signs of any ongoing active bleeding, but should there be a change clinically, capsule endoscopy could be considered. 3. While the patient experiences the thrombocytopenia, I would continue to hold the aspirin therapy. 4. Repeat EGD with a flexible sigmoidoscopy for rectal polypectomy in approximately six months. At that time hopefully there will be a full recovery of platelets and we can pursue safe biopsies at that time.
--- NOTE | 2017-02-24 16:20 | NUR ---
Social Work: Readiness for Discharge/Multidisciplinary Rounds D: Pt discussed in multidisciplinary rounds. Pt scheduled for colonoscopy today. BUSPERSON briefly met with the patient before his procedure to check in and assess for unmet discharge needs. Pt continues to ambulate I and identifies no discharge needs or barriers. Pt lives in [place] with a friend and is I with ADLs. Care trends indicates pt has been ambulating I without assistance from field staff manager. A: Pt who is I at baseline. P: Anticipate pt to discharge home via POV once medically stable; BUSPERSON to continue to follow to assess for discharge needs. ALISE Encinas
--- NOTE | 2017-02-24 18:37 | NUR ---
GI: Pt s/p EGD/colonoscopy, procedure tolerated well, no source of bleeding found. VSS, tele SR 70s, RA O2 sats 97%. Diet advance as tolerated per GI, pt eating a heart healthy diet for dinner. Up ad sumit in room in room/medrano, no gait instability noted. Care ongoing.
[2017-02-25] VITALS (13 sets, daily range): BP systolic 110–154; BP diastolic 63–90; PULSE 57–73; RESP 16–24; O2SAT 95–98
[2017-02-25] MEDS: 0.9% Sodium Chloride 1,000 ML IV SCH ×2 (00:45→10:45)
[2017-02-25] MEDS: Hydrocortisone 50 mg/mL 2 mL Inj IVPUSH SCH ×4 (04:00→23:11)
[2017-02-25 04:20] LABS: Mean Corpuscular Volume 104.7 fL (81-100)
[2017-02-25 04:21] LABS: Mean Corpuscular Hemoglobin 33.6 pg (27.0-35.0)
[2017-02-25 04:22] LABS: BASOPHILS % (AUTO) 0 % (0-3); EOSINOPHILS % (AUTO) 0 % (0-5); MONOCYTES % (AUTO) 8 % (4-12); NEUTROPHILS % (AUTO) 38 % (40-74)
[2017-02-25 04:24] LABS: Platelet Count 36 bil/L (150-400)
--- NOTE | 2017-02-25 04:24 | NUR ---
Critical result plt [address] Moreno at 0425, who states she will notify this assembly instructions writer of new orders. Addendum: 02/25/17 at 0446 by DIOGENES NERI RN Orders rec'd to transfuse 2 units platelets. Per blood bank, facility is out of platelets at this time and a new supply will arrive later this AM. Pt and notified.
[2017-02-25] MEDS: 0.9% Sodium Chloride 250 ML IV SCH ×4 (06:27→15:36)
[2017-02-25] MEDS: Pantoprazole 40 mg ER24 Tablet PO SCH ×2 (08:17→15:54)
--- NOTE | 2017-02-25 08:31 | PCM.PNMED ---
Subjective Date of Service Feb 25, 2017 Subjective GASTROENTEROLOGY PROGRESS NOTE: Attending Physician: Chris Calderón MD Resident Physician: Louisa Marques DO No acute events overnight. Patient denies abdominal pain, nausea, vomiting, bloody or dark colored stool. He does note soft, yellow-colored stool. His main concerns this morning are his ongoing shortness of breath and hernia pain. He states that for the past few weeks he becomes significantly short of breath with minimal activity. Particularly if he goes from a seated to position to standing. He denies chest pain, palpitations, headaches and dizziness but reports feeling lightheaded. He reports pain in his groin on the left which he attributes to his previously repaired inguinal hernia. Exam Vital Signs Vital Sign - Last Date Time Temp Pulse Resp B/P Pulse Ox O2 Delivery O2 Flow Rate FiO2 02/25/17 08:06 37.0 68 20 150/85 96 Room Air Intake and Output 02/24/17 02/24/17 02/25/17 Cumulative From/Thru 15:00 23:00 07:00 02/15/17 00:07 - 02/25/17 06:43 Intake Total 2008 ml 1428 ml 70640 ml Output Total 100 ml 8047 ml Balance 2008 ml 1328 ml 79619 ml Intake Oral 400 ml 400 ml 29504 ml IV Total 1608 ml 1028 ml 8939 ml Packed Cells 1236 ml Output Urine Total 100 ml 7845 ml Stool Total 200 ml Emesis 2 ml # Voids 3 6 31 # Bowel Movements 4 16 Exam General: Well-developed, elderly male in no acute distress. Appropriately interactive. HEENT: Normocephalic, atraumatic. PERRLA, Anicteric sclera. Mucous membranes moist/pink Pulmonary: Lung sounds diminished but clear to auscultation with no crackles, wheezes, or rhonchi. Cardiovascular: Regular rate/rhythm. No murmurs Abdomen: Soft, Non-tender, Non-distended, No masses, Normoactive bowel tones Extremities: No edema or cyanosis. No obvious rashes or ulcerations Neurological: AOx3, No focal neurologic deficit. Normal speech IVs and Medications Medications Reviewed: Medications were reviewed in detail Lab and Diagnostics Laboratory Tests Test 02/25/17 03:30 White Blood Count 4.3th/mm3 (3.8-10.1) Red Blood Count 2.32mil/mm3 (4.40-5.80) Hemoglobin 7.8g/dL (13.8-17.2) Hematocrit 24.3% (41.0-50.0) Mean Corpuscular Volume 104.7fL (81-100) Mean Corpuscular Hemoglobin 33.6pg (27.0-35.0) Mean Corpuscular Hemoglobin Concent 32.1% (32.0-37.0) Red Cell Distribution Width 19.9% (12.3-15.4) Platelet Count 36bil/L (150-400) Neutrophils (%) (Auto) 38% (40-74) Lymphocytes (%) (Auto) 37% (14-46) Monocytes (%) (Auto) 8% (4-12) Eosinophils (%) (Auto) 0% (0-5) Basophils (%) (Auto) 0% (0-3) Band Neutrophils % 7% (1-5) Metamyelocytes % 5% (0-0) Myelocytes % 4% (0-0) Nucleated Red Blood Cells 3/100 WBC (0-24) Hematology Comments Sodium Level 143mEq/L (134-144) Potassium Level 3.9mEq/L (3.5-5.2) Chloride Level 109mEq/L (97-108) Carbon Dioxide Level 21mmol/L (18-29) Blood Urea Nitrogen 22mg/dL (8-27) Creatinine 0.88mg/dL (0.76-1.27) Estimat Glomerular Filtration Rate 93mL/min (>59) Glucose Level 118mg/dL (60-99) Calcium Level 7.7mg/dL (8.5-10.1) Microbiology 02/21/17 Blood Culture - No growth at 2 days Result Diagram: 02/25/17 0330 02/25/17 0330 X-Rays, CTs and MRIs 02/15/17 - CT ABDOMEN AND PELVIS WITH CONTRAST IMPRESSION: 1. Acute left adrenal change most consistent with hemorrhagic change. Right adrenal is normal. 2. Ectasia and atherosclerosis of the aorta or to and iliac vessels. Colonic diverticula primarily sigmoid. Approved by: Jonatan Hdz M.D. on 02/15/2017 at 9:03 02/16/17 - US ABDOMEN, LIMITED IMPRESSION: Resolving left adrenal hemorrhage, no sign of extension of the left adrenal hematoma elsewhere. Approved by: Carson Vance M.D. on 02/16/2017 at 11:53 02/19/17 - CT ABDOMEN AND PELVIS WITH CONTRAST IMPRESSION: 1. Bilateral adrenal masses most likely secondary to adrenal hemorrhage. 2. Mild stranding around pancreas. Recommend clinical correlation for mild pancreatitis. 3. Splenomegaly. This finding is nonspecific and may be secondary to infectious , inflammatory or neoplastic etiology. Recommend clinical correlation and follow up. 4. Diverticulosis. No active diverticulitis. Approved by: Jose Regan M.D. on 02/19/2017 at 22:25 . Additional Diagnostics 02/24/2017 - EGD & COLONOSCOPY with BIOPSIES ENDOSCOPIC DIAGNOSES: 1. 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 2. Sliding hiatal hernia. 3. Gastropathy. 4. Mild proximal duodenopathy consistent with nonsteroidal antiinflammatory drug use. 5. No evidence of any active upper gastrointestinal bleeding or high risk stigmata. 6. Diverticulosis. 7. Hemorrhoids. 8. Colon polyp. 9. Ileocecal valve erosion -? Mild ischemic focus ? RECOMMENDATIONS: 1. Diet can be advanced as tolerated. 2. There are no signs of any ongoing active bleeding, but should there be a change clinically, capsule endoscopy could be considered. 3. While the patient experiences the thrombocytopenia, I would continue to hold the aspirin therapy. 4. Repeat EGD with a flexible sigmoidoscopy for rectal polypectomy in approximately six months. At that time hopefully there will be a full recovery of platelets and we can pursue safe biopsies at that time. Chris Calderón MD 02/24/17 1523 Assessment & Plan 61-year-old gentleman with a history of CAD with 2 stents, pulmonary embolus and a intracardiac thrombus, chronic left ventricular dysfunction with an ejection fraction of 35%, hypertension, and a myeloproliferative disorder who presented to the emergency department with complaint of back/flank pain. Subsequently found to have severe thrombocytopenia and anemia secondary to acute blood loss from adrenal hemorrhage. GI consulted for anemia possibly secondary to GI bleed. Anemia secondary to acute blood loss from adrenal hemorrhage. Now with melanotic stool and concern for concomitant GI bleed. - No history of GI bleeding and patient has never had a colonoscopy. - EGD & COLONOSCOPY 02/24 with no evidence of any active upper gastrointestinal bleeding or high risk stigmata. - Monitor H/H, transfuse blood products as needed to maintain Hb > 9. - Diet can be advanced as tolerated. - No signs of active bleeding. Will consider capsule endoscopy if clinical change. - Continue to hold the aspirin therapy, for thrombocytopenia. - Recommend repeat EGD with flexible sigmoidoscopy for rectal polypectomy in approximately six months. Will pursue biopsies at that time if thrombocytopenia resolved. - Patient reports left-sided groin pain related to previously repaired inguinal hernia. No signs of incarceration. Consider General Surgery consult if pain increases. Additional problems managed by primary medicine team and/or Hematology: Severe thrombocytopenia Myeloproliferative disorder Hypertension Hyperlipidemia . Pain Evaluation: Adequate Pain Control VTE Mechanical Devices: Intermittant Pneumatic CD Resuscitation Status: CPR: Attempt Resuscitation Attending Statement Patient seen and examined. Agree with assessment and plan as described by Dr Marques. Louisa Marques DO Feb 25, 2017 08:31 Chris Calderón MD Feb 25, 2017 17:45
[2017-02-25 11:11] LABS: Mean Corpuscular Hemoglobin 33.6 pg (27.0-35.0); Mean Corpuscular Volume 103.5 fL (81-100); Platelet Count 41 bil/L (150-400)
[2017-02-25 11:40] LABS: BASOPHILS % (AUTO) 1 % (0-3); EOSINOPHILS % (AUTO) 1 % (0-5); MONOCYTES % (AUTO) 12 % (4-12); NEUTROPHILS % (AUTO) 43 % (40-74)
--- NOTE | 2017-02-25 17:31 | PCM.PNMED ---
Subjective Date of Service Feb 25, 2017 Subjective He is doing well. He still feels weak. No problems with rectal bleeding. He denies any shortness of breath with exertion today feels more energetic. No chest pain or palpitations. No abdominal pain. Endoscopy and colonoscopy were unrevealing yesterday. He remains anemic and thrombocytopenic. No overnight events noted. Exam Vital Signs Vital Sign - Last Date Time Temp Pulse Resp B/P Pulse Ox O2 Delivery O2 Flow Rate FiO2 02/25/17 16:02 37.1 72 20 149/82 02/25/17 11:50 96 Room Air Intake and Output 02/24/17 02/24/17 02/25/17 Cumulative From/Thru 15:00 23:00 07:00 02/15/17 00:07 - 02/25/17 06:43 Intake Total 2008 ml 1428 ml 19128 ml Output Total 100 ml 8047 ml Balance 2008 ml 1328 ml 82494 ml Intake Oral 400 ml 400 ml 75423 ml IV Total 1608 ml 1028 ml 8939 ml Packed Cells 1236 ml Output Urine Total 100 ml 7845 ml Stool Total 200 ml Emesis 2 ml # Voids 3 6 31 # Bowel Movements 4 16 Exam Alert and oriented -3, no distress. Fluent speech Anicteric sclera. Lungs are clear with normal rate and effort Heart is regular without murmur gallop or rub Abdomen soft nontender, flat Extremities are free of edema. Skin is free of rash or lesions. IVs and Medications Medications Reviewed: Medications were reviewed in detail Lab and Diagnostics Result Diagram: 02/25/17 1055 02/25/17 0330 X-Rays, CTs and MRIs 02/15/17 - CT ABDOMEN AND PELVIS WITH CONTRAST IMPRESSION: 1. Acute left adrenal change most consistent with hemorrhagic change. Right adrenal is normal. 2. Ectasia and atherosclerosis of the aorta or to and iliac vessels. Colonic diverticula primarily sigmoid. Approved by: Jonatan Hdz M.D. on 02/15/2017 at 9:03 02/16/17 - US ABDOMEN, LIMITED IMPRESSION: Resolving left adrenal hemorrhage, no sign of extension of the left adrenal hematoma elsewhere. Approved by: Carson Vance M.D. on 02/16/2017 at 11:53 02/19/17 - CT ABDOMEN AND PELVIS WITH CONTRAST IMPRESSION: 1. Bilateral adrenal masses most likely secondary to adrenal hemorrhage. 2. Mild stranding around pancreas. Recommend clinical correlation for mild pancreatitis. 3. Splenomegaly. This finding is nonspecific and may be secondary to infectious , inflammatory or neoplastic etiology. Recommend clinical correlation and follow up. 4. Diverticulosis. No active diverticulitis. Approved by: Jose Regan M.D. on 02/19/2017 at 22:25 . Additional Diagnostics 02/24/2017 - EGD & COLONOSCOPY with BIOPSIES ENDOSCOPIC DIAGNOSES: 1. 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 2. Sliding hiatal hernia. 3. Gastropathy. 4. Mild proximal duodenopathy consistent with nonsteroidal antiinflammatory drug use. 5. No evidence of any active upper gastrointestinal bleeding or high risk stigmata. 6. Diverticulosis. 7. Hemorrhoids. 8. Colon polyp. 9. Ileocecal valve erosion -? Mild ischemic focus ? RECOMMENDATIONS: 1. Diet can be advanced as tolerated. 2. There are no signs of any ongoing active bleeding, but should there be a change clinically, capsule endoscopy could be considered. 3. While the patient experiences the thrombocytopenia, I would continue to hold the aspirin therapy. 4. Repeat EGD with a flexible sigmoidoscopy for rectal polypectomy in approximately six months. At that time hopefully there will be a full recovery of platelets and we can pursue safe biopsies at that time. Chris Calderón MD 02/24/17 1523 Assessment & Plan #. Left adrenal hemorrhage , present on admission. This is improved. His hematocrit has continued to drift down even though there is no obvious evidence of significant rectal bleeding. This may be a manifestation of bone marrow failure although the rate of decline seems relatively fast. He will receive 1 additional unit of packed red blood cells today we will continue to follow over the weekend. We are considering this may be a manifestation of his myelofibrosis with decreased red cell and platelet production. He will likely be scheduled for bone marrow biopsy next week. #. Anemia, from adrenal hemorrhage, POA and improved. Pt required transfusion H &H was 9.3/27.2 in the ED, dropped to 8.3/24.4. on 02/15- ordered for 1U. 02/17 another 1unit. US of RP didn't show any extravasation but repeat CT showed new Rt adrenal hemorrhage, no active extravasation. -cbc slowly trending down today, Will continue to follow hematocrit #. Severe thrombocytopenia, POA, and reactive, -trending down, Patient was given 1 additional platelet transfusion today. #. Myeloproliferative disorder, present on admission. Chronic. Stable. - increasing lymphocytes is concerning close to 50%, consulted 02/20, awaits recommendation - Patient followed by Dr. Nieves, held hydroxyurea, chronic, stable #. Essential hypertension, present on admission. Chronic and stable. - Continue lisinopril 20 mg daily - Continue metoprolol tartrate 50 mg daily #. Hyperlipidemia, present on admission. Chronic and stable. - Patient has had 2 stents placed (LAD, diagonal) - Continue atorvastatin 40 mg daily Acetaminophen as needed for mild pain, fever, headache. Bowel regimen as needed. VTE Mechanical Devices: Intermittant Pneumatic CD Resuscitation Status: CPR: Attempt Resuscitation Oz Zarco MD Feb 25, 2017 17:31
--- NOTE | 2017-02-25 18:16 | CCS NOTE ---
[facility] [address], [address] [address] MEDICAL ONCOLOGY OFFICE NOTE PATIENT: TRISTAN CAZARES : 1955 MR#: [id number] DATE: 02/15/2017 JOB ID: [id number] DATE: 02/25/2017 SUBJECTIVE: The patient had undergone upper and lower GI endoscopy yesterday because of history of melena and persistent drop of hemoglobin in the setting of also chronic bone marrow disorder and recent subacute worsening of pancytopenia after having had thrombocytosis and leukocytosis in the past. I reviewed the endoscopy reports and there was apparently no obvious source of ongoing bleeding. Colonoscopy had revealed a polyp in the rectum that needs to be biopsied but has been postponed to a later date because of his thrombocytopenia and risk of bleeding. Lab-ruiz even though he had been transfused with 2 units of packed red cells to bring his hemoglobin from 7.5 to 9.5 by yesterday, today has again dropped to about 7.5, so a 2 g drop within 24 hours. His platelet count has dropped from mid 50s to now 36. He has significant left shift as seen in this disorder with nucleated RBCs. OBJECTIVE: On exam, he describes that his bilateral flank pain has resolved and he does not have any abdominal pain. No nausea, vomiting, and has not experienced any more melena and has remained afebrile. ASSESSMENT AND PLAN: A 61-year-old gentleman with JAK2 mutation-positive myeloproliferative disorder who has been on hydroxyurea as an outpatient to control his severe thrombocytosis and leukocytosis for the past year and a half. He is now presenting with bilateral adrenal hemorrhage along with subacute fairly severe drop of platelets and hemoglobin. His hydroxyurea has been on hold since admission on February 15 and we are not seeing any evidence of improvement; in fact he has further deteriorated. GI endoscopy did not show any evidence of active bleeding, although he did have melena a few days ago. We cannot exclude the possibility that he could still have loss of blood through the small-bowel in smaller volumes that cannot be reached with endoscopy. The fact that his hemoglobin has dropped by 2 g again within the last 24 hours is concerning and suggests still a level of blood loss. Certainly we are getting more concerned about also his bone marrow deteriorating and progressing to fibrosis, although this is somewhat striking that this has happened so suddenly. At this point, we recommend continuing transfusion support to keep his hemoglobin around 9, given his congestive heart failure and his platelet count above 50. He had received a platelet transfusion today and is having ongoing blood transfusion currently. If he continues this rate of transfusion requirements, he will stay in the hospital over the weekend and I am planning to perform a bone marrow biopsy early next week as inpatient. Otherwise if he gets discharged, we can perform that as an outpatient, but I doubt that this will occur given the frequency of last blood transfusion over the last few days. This was discussed with Dr. Zarco of the hospitalist team.
--- NOTE | 2017-02-25 18:42 | CONS ---
[address] [address] CONSULTATION REPORT PATIENT: TRISTAN CAZARES : 1955 MR#: [id number] ADMIT: 02/15/2017 JOB ID: [id number] GASTROENTEROLOGY CONSULTATION: DATE OF SERVICE: 02/25/2017 REQUESTING PROVIDER: Elise Bell MD REASON FOR CONSULTATION: Bright red blood per rectum. HISTORY OF PRESENT ILLNESS: This is a 61-year-old male with a history of peripheral vascular disease, aspirin and Plavix therapy, DISREGARD DICTATION PER MD:
--- NOTE | 2017-02-25 19:29 | NUR ---
Blood Pt's H/H remains low at 7.6/23.4, no overt signs of bleeding noted, 1 unit of PRBCs ordered and transfused without issue.
[2017-02-26 03:21] LABS: Mean Corpuscular Hemoglobin 33.1 pg (27.0-35.0); Mean Corpuscular Volume 100.4 fL (81-100); Platelet Count 49 bil/L (150-400)
[2017-02-26 03:38] LABS: BASOPHILS % (AUTO) 0 % (0-3); EOSINOPHILS % (AUTO) 1 % (0-5); MONOCYTES % (AUTO) 4 % (4-12); NEUTROPHILS % (AUTO) 45 % (40-74)
[2017-02-26 04:01] VITALS: BP 146/86; PULSE 58; RESP 20; O2SAT 94
[2017-02-26] MEDS: 0.9% Sodium Chloride 250 ML IV SCH ×4 (04:30→12:44)
[2017-02-26] MEDS: Hydrocortisone 50 mg/mL 2 mL Inj IVPUSH SCH ×4 (04:38→22:39)
[2017-02-26] MEDS: HYDROcodone-APAP 5-325 mg Tablet PO PRN ×2 (04:39→09:05)
--- NOTE | 2017-02-26 05:00 | NUR ---
Abdominal Discomfort/Bowel movements Patient reports new abdominal discomfort at 0445 that he describes as 5/10 pain with pressure and "bloating." Patient states that the pain is similar to "before, when I blew my adrenals." Patient states that he has had no significant pain for the last 2-3 days. Patient also states that he continues to have multiple soft, pale brown bowel movements. He indicates that he is passing significant flatus and stool, but is unable to resolve the feeling of being bloated. DICK page to hospitalist.
[2017-02-26 08:52] VITALS: BP 155/75; PULSE 67; RESP 24; O2SAT 97
[2017-02-26] MEDS: Pantoprazole 40 mg ER24 Tablet PO SCH ×2 (08:58→17:27)
--- NOTE | 2017-02-26 12:48 | PCM.PNMED ---
Subjective Date of Service Feb 26, 2017 Subjective The patient had a difficult night with increased flank pain again bilaterally. The pain is described as coming and going. He does not increase with position change but does increase with palpation. The pain is not pleuritic. No associated nausea or dyspnea. He denies any abdominal pain lower. Is very similar to his initial presenting complaint pain related to adrenal hemorrhage. His platelet count is slightly lower than 50,000 today. It is over stable overnight. No rectal bleeding. No other overnight events noted. Exam Vital Signs Vital Sign - Last Date Time Temp Pulse Resp B/P Pulse Ox O2 Delivery O2 Flow Rate FiO2 02/26/17 08:52 37.1 67 24 155/75 97 Room Air Intake and Output 02/25/17 02/25/17 02/26/17 Cumulative From/Thru 15:00 23:00 07:00 02/15/17 00:07 - 02/26/17 06:42 Intake Total 280 ml 1885 ml 460 ml 88642 ml Output Total 8047 ml Balance 280 ml 1885 ml 460 ml 32085 ml Intake Oral 1200 ml 400 ml 08570 ml IV Total 50 ml 350 ml 60 ml 9399 ml Packed Cells 335 ml 1571 ml Platelets 230 ml 230 ml Output Urine Total 7845 ml Stool Total 200 ml Emesis 2 ml # Voids 4 4 39 # Bowel Movements 3 3 22 Exam Alert and oriented -3, no distress. Fluent speech Anicteric sclera. Lungs are clear with normal rate and effort Heart is regular without murmur gallop or rub Abdomen soft and flat. There is some tenderness to deep palpation in the left and right flank. Extremities are free of edema. Skin is free of rash or lesions. IVs and Medications Medications Reviewed: Medications were reviewed in detail Lab and Diagnostics Result Diagram: 02/26/17 0305 02/26/17 0305 X-Rays, CTs and MRIs 02/15/17 - CT ABDOMEN AND PELVIS WITH CONTRAST IMPRESSION: 1. Acute left adrenal change most consistent with hemorrhagic change. Right adrenal is normal. 2. Ectasia and atherosclerosis of the aorta or to and iliac vessels. Colonic diverticula primarily sigmoid. Approved by: Jonatan Hdz M.D. on 02/15/2017 at 9:03 02/16/17 - US ABDOMEN, LIMITED IMPRESSION: Resolving left adrenal hemorrhage, no sign of extension of the left adrenal hematoma elsewhere. Approved by: Carson Vance M.D. on 02/16/2017 at 11:53 02/19/17 - CT ABDOMEN AND PELVIS WITH CONTRAST IMPRESSION: 1. Bilateral adrenal masses most likely secondary to adrenal hemorrhage. 2. Mild stranding around pancreas. Recommend clinical correlation for mild pancreatitis. 3. Splenomegaly. This finding is nonspecific and may be secondary to infectious , inflammatory or neoplastic etiology. Recommend clinical correlation and follow up. 4. Diverticulosis. No active diverticulitis. Approved by: Jose Regan M.D. on 02/19/2017 at 22:25 . Additional Diagnostics 02/24/2017 - EGD & COLONOSCOPY with BIOPSIES ENDOSCOPIC DIAGNOSES: 1. 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 2. Sliding hiatal hernia. 3. Gastropathy. 4. Mild proximal duodenopathy consistent with nonsteroidal antiinflammatory drug use. 5. No evidence of any active upper gastrointestinal bleeding or high risk stigmata. 6. Diverticulosis. 7. Hemorrhoids. 8. Colon polyp. 9. Ileocecal valve erosion -? Mild ischemic focus ? RECOMMENDATIONS: 1. Diet can be advanced as tolerated. 2. There are no signs of any ongoing active bleeding, but should there be a change clinically, capsule endoscopy could be considered. 3. While the patient experiences the thrombocytopenia, I would continue to hold the aspirin therapy. 4. Repeat EGD with a flexible sigmoidoscopy for rectal polypectomy in approximately six months. At that time hopefully there will be a full recovery of platelets and we can pursue safe biopsies at that time. Chris Calderón MD 02/24/17 1523 Assessment & Plan #. Left adrenal hemorrhage , present on admission. Possibly recurrent. 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 We will repeat CT scan of abdomen to rule out recurrent hemorrhage of adrenal glands versus other intraperitoneal hemorrhage. #. 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 Pt required transfusion H&H was 9.3/27.2 in the ED, dropped to 8.3/24.4. on - ordered for 1U. 02/17 another 1unit. US of RP didn't show any extravasation but repeat CT showed new Rt adrenal hemorrhage, no active extravasation. -cbc slowly trending down today, Will continue to follow hematocrit, will transfuse blood products with a hemoglobin: 9. #. Severe thrombocytopenia, POA, and reactive, -trending down, Plan is as above. We will again give her another transfusion presents today with a threshold 50,000 given his ongoing bleeding and blood loss. #. Myeloproliferative disorder, present on admission. Chronic. Stable and possibly active.. - increasing lymphocytes is concerning close to 50%, consulted 02/20, awaits recommendation - Patient followed by Dr. Nieves, held hydroxyurea, chronic, stable Plan a bone marrow biopsy Tuesday at noon per Dr. Nieves #. Essential hypertension, present on admission. Chronic and stable. - Continue lisinopril 20 mg daily - Continue metoprolol tartrate 50 mg daily #. Hyperlipidemia, present on admission. Chronic and stable. - Patient has had 2 stents placed (LAD, diagonal) - Continue atorvastatin 40 mg daily Acetaminophen as needed for mild pain, fever, headache. Bowel regimen as needed. VTE Mechanical Devices: Intermittant Pneumatic CD Resuscitation Status: CPR: Attempt Resuscitation Oz Zarco MD Feb 26, 2017 12:48
[2017-02-26 15:41] VITALS: BP 153/76; PULSE 63; RESP 18; O2SAT 96
--- NOTE | 2017-02-26 17:57 | NUR ---
Breathing/Pain Pt reported having difficulties breathing since yesterday, SPO2 sats in the mid - upper 90s on RA when checked, Pt's breath sounds clear. Pt was also reporting increased pain in his flanks bilaterally, Pt requested 1 tablet PRN norco which he reported as effective. Pt reported pain to be easily tolerable at a 1/10 for remainder of the shift. Pt also reported breathing to be much improved, RN spoke with Pt about the possibility of an ineffective breathing pattern r/t pain in the area, Pt encouraged to notify the nurse when discomfort increases, especially if it is effecting breathing. Pt was also encouraged to perform breathing/coughing exercises as tolerated r/t preexisting hernia.
[2017-02-26 19:39] VITALS: BP 126/83; PULSE 72; RESP 16; O2SAT 98
[2017-02-26 23:11] VITALS: BP 146/79; PULSE 67; RESP 20; O2SAT 96
[2017-02-27 03:49] LABS: BASOPHILS % (AUTO) 1.1 % (0-3); EOSINOPHILS % (AUTO) 0.4 % (0-5); MONOCYTES % (AUTO) 16.4 % (4-12); Mean Corpuscular Hemoglobin 33.2 pg (27.0-35.0); Mean Corpuscular Volume 101.5 fL (81-100); NEUTROPHILS % (AUTO) 42.2 % (40-74); Platelet Count 40 bil/L (150-400)
[2017-02-27] MEDS: Hydrocortisone 50 mg/mL 2 mL Inj IVPUSH SCH ×3 (04:24→16:14)
--- NOTE | 2017-02-27 05:52 | NUR ---
Rest/Pain Patient denies pain overnight. Reports feeling much better than yesterday. Up ambulating independently in the halls several times. Patient states that he has finally been comfortable enough to sleep for several hours. Continue to monitor.
[2017-02-27 07:59] VITALS: BP 168/82; PULSE 60; RESP 20; O2SAT 97
[2017-02-27] MEDS: Pantoprazole 40 mg ER24 Tablet PO SCH ×2 (08:02→16:14)
--- NOTE | 2017-02-27 08:11 | PCM.PNMED ---
Subjective Date of Service Feb 27, 2017 Subjective He is feeling much better today. His abdominal pain has improved considerably. He had a bowel movement which was normal in color today. No nausea. His physical activity and increased quite a bit yesterday. His blood counts are relatively stable today. No overnight events noted. Exam Vital Signs Vital Sign - Last Date Time Temp Pulse Resp B/P Pulse Ox O2 Delivery O2 Flow Rate FiO2 02/27/17 07:59 36.7 60 20 168/82 97 Room Air Intake and Output 02/26/17 02/26/17 02/27/17 Cumulative From/Thru 15:00 23:00 07:00 02/15/17 00:07 - 02/27/17 06:49 Intake Total 660 ml 190 ml 95135 ml Output Total 8047 ml Balance 660 ml 190 ml 51208 ml Intake Oral 640 ml 150 ml 52942 ml IV Total 20 ml 40 ml 9459 ml Packed Cells 1571 ml Platelets 230 ml Output Urine Total 7845 ml Stool Total 200 ml Emesis 2 ml # Voids 6 3 48 # Bowel Movements 3 25 Exam Alert and oriented -3, no distress. Fluent speech Anicteric sclera. Lungs are clear with normal rate and effort Heart is regular without murmur gallop or rub Abdomen soft nontender, flat Extremities are free of edema. Skin is free of rash or lesions. He does have ecchymoses on both forearms. IVs and Medications Medications Reviewed: Medications were reviewed in detail Lab and Diagnostics Result Diagram: 02/27/17 0325 02/27/17 0325 X-Rays, CTs and MRIs 02/15/17 - CT ABDOMEN AND PELVIS WITH CONTRAST IMPRESSION: 1. Acute left adrenal change most consistent with hemorrhagic change. Right adrenal is normal. 2. Ectasia and atherosclerosis of the aorta or to and iliac vessels. Colonic diverticula primarily sigmoid. Approved by: Jonatan Hdz M.D. on 02/15/2017 at 9:03 02/16/17 - US ABDOMEN, LIMITED IMPRESSION: Resolving left adrenal hemorrhage, no sign of extension of the left adrenal hematoma elsewhere. Approved by: Carson Vance M.D. on 02/16/2017 at 11:53 02/19/17 - CT ABDOMEN AND PELVIS WITH CONTRAST IMPRESSION: 1. Bilateral adrenal masses most likely secondary to adrenal hemorrhage. 2. Mild stranding around pancreas. Recommend clinical correlation for mild pancreatitis. 3. Splenomegaly. This finding is nonspecific and may be secondary to infectious , inflammatory or neoplastic etiology. Recommend clinical correlation and follow up. 4. Diverticulosis. No active diverticulitis. Approved by: Jose Regan M.D. on 02/19/2017 at 22:25 . Additional Diagnostics 02/24/2017 - EGD & COLONOSCOPY with BIOPSIES ENDOSCOPIC DIAGNOSES: 1. 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 2. Sliding hiatal hernia. 3. Gastropathy. 4. Mild proximal duodenopathy consistent with nonsteroidal antiinflammatory drug use. 5. No evidence of any active upper gastrointestinal bleeding or high risk stigmata. 6. Diverticulosis. 7. Hemorrhoids. 8. Colon polyp. 9. Ileocecal valve erosion -? Mild ischemic focus ? RECOMMENDATIONS: 1. Diet can be advanced as tolerated. 2. There are no signs of any ongoing active bleeding, but should there be a change clinically, capsule endoscopy could be considered. 3. While the patient experiences the thrombocytopenia, I would continue to hold the aspirin therapy. 4. Repeat EGD with a flexible sigmoidoscopy for rectal polypectomy in approximately six months. At that time hopefully there will be a full recovery of platelets and we can pursue safe biopsies at that time. Chris Calderón MD 02/24/17 1523 Assessment & Plan #. Left adrenal hemorrhage now with recurrent abdominal pain which is improved a bit today. Present on admission. Possibly recurrent. Repeat CT to rule out expanding intracranial hematomas today. #. 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 Pt required transfusion H&H was 9.3/27.2 in the ED, dropped to 8.3/24.4. on - ordered for 1U. 02/17 another 1unit. US of RP didn't show any extravasation but repeat CT showed new Rt adrenal hemorrhage, no active extravasation. -cbc slowly trending down today, Will continue to follow hematocrit, will transfuse blood products with a hemoglobin: 9. Today he is just a little under this threshold so we will continue to follow clinically hold on transfusion. #. Severe thrombocytopenia, POA, and reactive, -trending down, Plan is as above. We will again give her another transfusion presents today with a threshold 50,000 given his ongoing bleeding and blood loss. Today he is just a little below this threshold but no clinical evidence of bleeding. We will hold platelet transfusion and serial CT scan looks like. #. Myeloproliferative disorder, present on admission. Chronic. Stable and possibly active.. - increasing lymphocytes is concerning close to 50%, consulted 02/20, awaits recommendation - Patient followed by Dr. Nieves, held hydroxyurea, chronic, stable Plan a bone marrow biopsy Tuesday at noon per Dr. Nieves #. Essential hypertension, present on admission. Chronic and active. - Continue lisinopril 20 mg daily - Continue metoprolol tartrate 50 mg BID #. Hyperlipidemia, present on admission. Chronic and stable. - Patient has had 2 stents placed (LAD, diagonal) - Continue atorvastatin 40 mg daily Acetaminophen as needed for mild pain, fever, headache. Vicodin as needed for moderate pain Bowel regimen as needed. VTE Mechanical Devices: Intermittant Pneumatic CD Resuscitation Status: CPR: Attempt Resuscitation Oz Zarco MD Feb 27, 2017 08:11
[2017-02-27] MEDS: 0.9% Sodium Chloride 250 ML IV SCH ×3 (10:15→13:11)
--- NOTE | 2017-02-27 11:00 | DRSVH ---
PROCEDURE: CT ABDOMEN AND PELVIS WITH CONTRAST ([id number]) INDICATIONS: abdomen pain TECHNIQUE: After the administration of oral and intravenous contrast, 5 mm thick sections acquired from the diap hragms to the symphysis. 5 mm thick coronal and sagittal reformats were performed. For radiation do se reduction, the following was used: automated exposure control, adjustment of mA and/or kV accordi ng to patient size. COMPARISON: [facility], CT, CT ABD PELVIS W CON, 02/15/2017, 2:54. [facility], CT, CT ABD PELVIS W CON, 02/19/2017, 1:57. FINDINGS: Image quality: Excellent. ABDOMEN: Lung bases: There are small bilateral pleural effusions, right greater than left, with associated co mpressive atelectasis. There is a small hiatal hernia. Heart size is normal. Solid organs: No focal hepatic lesions identified. The spleen is enlarged, measuring up to 17.7 cm. The gallbladder is partially distended, with wall thickening and mucosal enhancement. No calcified gallstones. Biliary system is non-dilated. Pancreas enhances normally. Kidneys demonstrate no hyd ronephrosis. There is nonspecific mild perinephric stranding redemonstrated bilaterally. There are bilateral partially hyperdense adrenal hematomas redemonstrated. Peritoneum and bowel: There is increased intraperitoneal free fluid with a small amount of perihepat ic and perisplenic free fluid tracking along the paracolic gutters. There is a small to moderate rene unt of free fluid in the pelvis. No free air. Stomach and small bowel loops are normal in caliber a nd wall thickness. There is mild segmental wall thickening of the colon at the hepatic flexure. The re is colonic diverticulosis without acute diverticulitis. Nodes and vessels: No retroperitoneal or mesenteric adenopathy. Aorta and inferior vena cava are no rmal in caliber. Miscellaneous: No ventral hernias. PELVIS: Genitourinary: There is mild concentric bladder wall thickening with mild pericystic stranding consis tent with a nonspecific cystitis. Miscellaneous: No inguinal hernias or adenopathy. Bones: No suspicious bony lesions. No vertebral body compression fractures. IMPRESSION: 1. Bilateral adrenal hematomas redemonstrated. 2. Increased intraperitoneal free fluid and small bilateral pleural effusions. 3. Increased gallbladder wall thickening and mucosal enhancement with partial distention of the gall bladder. Recommend correlation clinically for possible cholecystitis and if indicated further evalua tion may be obtained with ultrasound or HIDA scan. 4. Redemonstration of splenomegaly. 5. Nonspecific cystitis. Recommend correlation with urinalysis. Dictated by: Jarrell Burk M.D. on 02/27/2017 at 10:46 Approved by: Jarrell Burk M.D. on 02/27/2017 at 10:58
--- NOTE | 2017-02-27 12:03 | NUR ---
Social Work: Readiness for Discharge/Multidisciplinary Rounds D: EMR reviewed. Pt is on day 12 of hospitalization. Pt discussed in multidisciplinary rounds. Pt scheduled for CT scan today. Pt is not medically ready for d/c, anticipate Tuesday. Per chart review, pt continues to ambulate I. Pt lives in [place] with a friend and is I with ADLs. No discharge needs or barriers identified in rounds. Discussed likely transfer to [facility]. [facility] RN [facility] P[place]ja updated of transfer by phone. SW continues to follow for any unmet needs. A: Pt who is I at baseline. P: Anticipate pt to discharge home via POV once medically stable; RN RAD[facility]COL[facility] to continue to follow to assess for discharge needs. Iris Irene, RN RADIATION ONCOLOGY
--- NOTE | 2017-02-27 15:20 | NUR ---
Transfer from [facility] to [facility] Rm 1009 Pt arrived to [facility] Rm 1009 in wheelchair; pt amb ind to bed, steady gait, A&Ox3, 2 IV SL, RA, no c/o pain at this time. BP elevated upon arrival, per report from Ariel Kaur RN medications to restart today. Care ongoing.
[2017-02-27 16:15] VITALS: BP 140/79; PULSE 73; RESP 18; O2SAT 96
[2017-02-27 17:13] VITALS: BP 155/84; PULSE 63; RESP 18; O2SAT 97
--- NOTE | 2017-02-27 17:19 | NUR ---
BP/Transfer Pt's BP 168/85 this am, spoke with MD, home metoprolol and lisinopril doses added back to Pt's eMAR. Pt's BP this afternoon prior to transfer: 140/79. Pt just transferred to [facility] room 1009 from [facility] room 2025, report done with receiving RN Norma Epps. Prior to transport, Pt denied pain, VSS on RA, and A&Ox3.
[2017-02-27 19:49] VITALS: BP 131/80; PULSE 68; RESP 16; O2SAT 95
[2017-02-28] MEDS: Hydrocortisone 50 mg/mL 2 mL Inj IVPUSH SCH ×5 (00:39→21:35)
--- NOTE | 2017-02-28 04:33 | NUR ---
Activity Pt ambulates in hallway independently. No pain at this time. Refuses stool softeners, states small amount of soft BM. Denies chest pain and SOB. Bilateral arm IV saline locked. Care continues
[2017-02-28 06:31] VITALS: BP 149/81; PULSE 74; RESP 18; O2SAT 96
[2017-02-28] MEDS: Pantoprazole 40 mg ER24 Tablet PO SCH ×2 (09:13→16:20)
[2017-02-28] MEDS: 0.9% Sodium Chloride 250 ML IV SCH ×3 (10:49)
[2017-02-28 12:58] LABS: Mean Corpuscular Hemoglobin 32.8 pg (27.0-35.0); Mean Corpuscular Volume 101.2 fL (81-100)
--- NOTE | 2017-02-28 14:09 | NUR ---
Activity and GI Pt. ambulates in the hallway frequently, he is ADLs independent. He denied discomfort/pain. He took a shower in the morning with set up assist. Pt. report loose stool, no bloody stool. Anticipate bone marrow study tomorrow 03/01/17 at 1300.
--- NOTE | 2017-02-28 15:38 | PCM.PNMED ---
Subjective Date of Service Feb 28, 2017 Subjective He feels better today. He had some transient abdominal pain again this morning but this did improve with a follow-up. He has had a good appetite. His platelet and hematocrit remained stable. No rectal bleeding. He is having soft stools. No fevers or chills. No chest pain or shortness of breath. No nausea. No overnight events noted. Exam Vital Signs Vital Sign - Last Date Time Temp Pulse Resp B/P Pulse Ox O2 Delivery O2 Flow Rate FiO2 02/28/17 06:31 36.6 74 18 149/81 96 Room Air Intake and Output 02/27/17 02/27/17 02/28/17 Cumulative From/Thru 15:00 23:00 07:00 02/15/17 00:07 - 02/28/17 06:31 Intake Total 1420 ml 636 ml 87451 ml Output Total 8047 ml Balance 1420 ml 636 ml 95873 ml Intake Oral 1420 ml 636 ml 53843 ml IV Total 9459 ml Packed Cells 1571 ml Platelets 230 ml Output Urine Total 7845 ml Stool Total 200 ml Emesis 2 ml # Voids 4 3 55 # Bowel Movements 3 28 Exam Alert and oriented -3, no distress. Fluent speech Anicteric sclera. Lungs are clear with normal rate and effort Heart is regular without murmur gallop or rub Abdomen soft nontender, flat Extremities are free of edema. Skin is free of rash or lesions. IVs and Medications Medications Reviewed: Medications were reviewed in detail Lab and Diagnostics Result Diagram: 02/28/17 1232 02/28/17 1232 X-Rays, CTs and MRIs 02/15/17 - CT ABDOMEN AND PELVIS WITH CONTRAST IMPRESSION: 1. Acute left adrenal change most consistent with hemorrhagic change. Right adrenal is normal. 2. Ectasia and atherosclerosis of the aorta or to and iliac vessels. Colonic diverticula primarily sigmoid. Approved by: Jonatan Hdz M.D. on 02/15/2017 at 9:03 02/16/17 - US ABDOMEN, LIMITED IMPRESSION: Resolving left adrenal hemorrhage, no sign of extension of the left adrenal hematoma elsewhere. Approved by: Carson Vance M.D. on 02/16/2017 at 11:53 02/19/17 - CT ABDOMEN AND PELVIS WITH CONTRAST IMPRESSION: 1. Bilateral adrenal masses most likely secondary to adrenal hemorrhage. 2. Mild stranding around pancreas. Recommend clinical correlation for mild pancreatitis. 3. Splenomegaly. This finding is nonspecific and may be secondary to infectious , inflammatory or neoplastic etiology. Recommend clinical correlation and follow up. 4. Diverticulosis. No active diverticulitis. Approved by: Jose Regan M.D. on 02/19/2017 at 22:25 . Additional Diagnostics 02/24/2017 - EGD & COLONOSCOPY with BIOPSIES ENDOSCOPIC DIAGNOSES: 1. 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 2. Sliding hiatal hernia. 3. Gastropathy. 4. Mild proximal duodenopathy consistent with nonsteroidal antiinflammatory drug use. 5. No evidence of any active upper gastrointestinal bleeding or high risk stigmata. 6. Diverticulosis. 7. Hemorrhoids. 8. Colon polyp. 9. Ileocecal valve erosion -? Mild ischemic focus ? RECOMMENDATIONS: 1. Diet can be advanced as tolerated. 2. There are no signs of any ongoing active bleeding, but should there be a change clinically, capsule endoscopy could be considered. 3. While the patient experiences the thrombocytopenia, I would continue to hold the aspirin therapy. 4. Repeat EGD with a flexible sigmoidoscopy for rectal polypectomy in approximately six months. At that time hopefully there will be a full recovery of platelets and we can pursue safe biopsies at that time. Chris Calderón MD 02/24/17 1523 Assessment & Plan #. Left adrenal hemorrhage now with recurrent abdominal pain which is improved a bit today. Present on admission. Possibly recurrent. Repeat CT scan yesterday indicated stable adrenal hematomas. A small amount of fluid in the pelvis as well as some edema of the gallbladder wall. He also had bilateral pleural effusions which are small. I believe this represents fluid overload and third spacing. There is nothing specific in terms of etiology of abdominal pain from a clinical interpretation or source of blood loss anemia. #. 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 Pt required transfusion H&H was 9.3/27.2 in the ED, dropped to 8.3/24.4. on - ordered for 1U. 02/17 another 1unit. US of RP didn't show any extravasation but repeat CT showed new Rt adrenal hemorrhage, no active extravasation. -The patient has a stable hematocrit today. We will hold on transfusion and follow again tomorrow. -He is scheduled for bone marrow biopsy tomorrow 1 PM #. Severe thrombocytopenia, POA, and stable, -His platelets are about 40,000 and today. Initial recommendations had been to use a threshold of 50,000. However he is having no bleeding symptoms and is medically stable. We will recheck in the morning and likely give a unit of platelets if less than 50 in anticipation of his bone marrow biopsy. #. Myeloproliferative disorder, present on admission. Chronic. Stable and possibly active.. - Bone marrow biopsy tomorrow #. Essential hypertension, present on admission. Chronic and active. - Continue lisinopril 20 mg daily - Continue metoprolol tartrate 50 mg BID, no changes #. Hyperlipidemia, present on admission. Chronic and stable. - Patient has had 2 stents placed (LAD, diagonal) - Continue atorvastatin 40 mg daily, no changes Acetaminophen as needed for mild pain, fever, headache. Vicodin as needed for moderate pain Bowel regimen as needed. I believe the patient can likely be discharged tomorrow afternoon after bone marrow biopsy with close outpatient follow-up. VTE Mechanical Devices: Intermittant Pneumatic CD Resuscitation Status: CPR: Attempt Resuscitation Oz Zarco MD Feb 28, 2017 15:37
[2017-02-28 15:55] VITALS: BP 159/82; PULSE 74; RESP 18; O2SAT 98
[2017-02-28 21:05] VITALS: BP 157/88; PULSE 63; RESP 18; O2SAT 97
[2017-03-01] MEDS: Hydrocortisone 50 mg/mL 2 mL Inj IVPUSH SCH ×2 (04:16→10:45)
--- NOTE | 2017-03-01 06:03 | NUR ---
Activity On initial assessment, patient stated pain 2/10 on pain scale. Patient refused any pain medication. Patient seen sleeping on sofa bed. Stated that hospital bed is too uncomfortable to sleep on at this time. Patient seen walking around hallways throughout shift. Appears slightly anxious in regards to bone marrow biopsy at 1300 on 03/01/17. VSS. Call light is within reach. Hourly rounding continues.
[2017-03-01 06:06] VITALS: BP 166/82; PULSE 55; RESP 16; O2SAT 96
[2017-03-01 06:55] LABS: Mean Corpuscular Hemoglobin 33.2 pg (27.0-35.0); Mean Corpuscular Volume 100.4 fL (81-100)
[2017-03-01] MEDS: Pantoprazole 40 mg ER24 Tablet PO SCH ×2 (09:06→17:28)
[2017-03-01] MEDS: 0.9% Sodium Chloride 250 ML IV SCH ×3 (10:46)
[2017-03-01 11:28] VITALS: BP 139/84; PULSE 71; RESP 18; O2SAT 97
[2017-03-01] MEDS ORDERED: Heparin 1,000 Units/mL 2 mL Inj INJ SCH (11:55)
--- NOTE | 2017-03-01 14:35 | NUR ---
Bone biopsy Bone biopsy was performed in room by Dr. Nieves and oncology nurse, Christine. Pt. was on bedrest for 30 min. after the procedure. Checked dressing after bedrest, it was CDI, no bleeding noted. Pt. was instructed to notify nursing if he noted any bleeding. Pt. is anxious to go home. He was admitted on 02/15 and he misses home.
--- NOTE | 2017-03-01 15:14 | PCM.DC.MED ---
Discharge Summary Date of Service Mar 01, 2017 Dates of Hospitalization Date of Hospital Admission Feb 15, 2017 at 04:08 Date of Discharge: Mar 01, 2017 Providers: Admitting Physician: Deyanira Lehman DO Primary Care Physician: Jarrell Gonzalez MD Attending Physician: Chris Pena MD Diagnosis at Time of Discharge Diagnosis at Time of Discharge acute dx Left adrenal hemorrhage. Acute blood loss anemia, from adrenal hemorrhage and possibly myelofibrosis Left Flank Pain with adrenal hemorrhage Severe thrombocytopenia Essential hypertension chronic dx Myeloproliferative disorder Hyperlipidemia Consultations Oncology- Dr. Nieves. Procedures XRay, CTs & MRIs 02/15/17 - CT ABDOMEN AND PELVIS WITH CONTRAST IMPRESSION: 1. Acute left adrenal change most consistent with hemorrhagic change. Right adrenal is normal. 2. Ectasia and atherosclerosis of the aorta or to and iliac vessels. Colonic diverticula primarily sigmoid. Approved by: Jonatan Hdz M.D. on 02/15/2017 at 9:03 02/16/17 - US ABDOMEN, LIMITED IMPRESSION: Resolving left adrenal hemorrhage, no sign of extension of the left adrenal hematoma elsewhere. Approved by: Carson Vance M.D. on 02/16/2017 at 11:53 02/19/17 - CT ABDOMEN AND PELVIS WITH CONTRAST IMPRESSION: 1. Bilateral adrenal masses most likely secondary to adrenal hemorrhage. 2. Mild stranding around pancreas. Recommend clinical correlation for mild pancreatitis. 3. Splenomegaly. This finding is nonspecific and may be secondary to infectious , inflammatory or neoplastic etiology. Recommend clinical correlation and follow up. 4. Diverticulosis. No active diverticulitis. Approved by: Jose Regan M.D. on 02/19/2017 at 22:25 . Other Diagnostics 02/24/2017 - EGD & COLONOSCOPY with BIOPSIES ENDOSCOPIC DIAGNOSES: 1. 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 2. Sliding hiatal hernia. 3. Gastropathy. 4. Mild proximal duodenopathy consistent with nonsteroidal antiinflammatory drug use. 5. No evidence of any active upper gastrointestinal bleeding or high risk stigmata. 6. Diverticulosis. 7. Hemorrhoids. 8. Colon polyp. 9. Ileocecal valve erosion -? Mild ischemic focus ? RECOMMENDATIONS: 1. Diet can be advanced as tolerated. 2. There are no signs of any ongoing active bleeding, but should there be a change clinically, capsule endoscopy could be considered. 3. While the patient experiences the thrombocytopenia, I would continue to hold the aspirin therapy. 4. Repeat EGD with a flexible sigmoidoscopy for rectal polypectomy in approximately six months. At that time hopefully there will be a full recovery of platelets and we can pursue safe biopsies at that time. Chris Calderón MD 02/24/17 1523 Brief History Per [facility] on 02/15/[address] Beltran Mr. Lay is a 61-year-old male with a past medical history significant for CAD with 2 stents, pulmonary embolus and a intracardiac thrombus, left ventricular dysfunction with an ejection fraction of 35%, HTN, and a myeloproliferative disorder who presented to the emergency department with complaint of back/flank pain. Patient's left sided-flank pain attributed to adrenal hemorrhage noted on CT scan at presentation after which he developed right flank pain several days later. A repeat CT scan was done, which showed a right-sided adrenal hemorrhage. Imaging findings and patient's symptoms correlated with a substantial drop in platelets as well as hemoglobin and hematocrit. He subsequently has received several units of both pRBCs and platelets with little improvement in his blood counts. He has been anticoagulated with warfarin, aspirin and was placed on hydroxyurea, as an outpatient with good response and normalization of platelets on lab work in November. However, his anticoagulation has been on hold per Hematology. Despite this his blood counts continue to drop and he now has dark colored stools for the past couple of days. He continues to report back pain as well as lower abdominal pain. He states that the pain was not as noticeable when he was receiving Dilaudid. However, he states that he needed this initially because the flank pain was so intense. He attributes the change the character of his abdominal pain to decreased pain medications and a better awareness of his body. He describes the pain as intermittent and similar in nature the pain he experienced with his prior inguinal hernias. He reports mild nausea, but denies any chest pain, shortness of breath, vomiting, headache, pain on inspiration, or any change in bowel or bladder habits. GI consulted for anemia in setting of melanotic stool in a patient with no prior colonoscopy. Hospital Course #. Left adrenal hemorrhage now with recurrent abdominal pain which is improved a bit today. Present on admission. Possibly recurrent. Repeat CT scan indicated stable adrenal hematomas. A small amount of fluid in the pelvis as well as some edema of the gallbladder wall. He also had bilateral pleural effusions which are small. There is nothing specific in terms of etiology of abdominal pain from a clinical interpretation or source of blood loss anemia. -Pt started on Hydrocortisone IV q6h for likely adrenal insufficiency, now po. Follow up with primary doctor as outpatient. Can attempt to titrate off if blood pressure is stable. Consider referral to Clinical Pharmacy Manager. #. 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 Pt required transfusion H&H was 9.3/27.2 in the ED, dropped to 8.3/24.4. on - ordered for 1U. 02/17 another 1unit. US of RP didn't show any extravasation but repeat CT showed new Rt adrenal hemorrhage, no active extravasation. -The patient has a stable hematocrit. 1u pRBC given upon discharge on 03/01. #. Myeloproliferative disorder, present on admission. Chronic. Stable and possibly active.. - Bone marrow biopsy tomorrow - s/p bone marrow biopsy 03/01/17. Dr. Nieves will review results with patient as outpatient. - Follow up with Dr. Nieves in 1 week as planned. #. Severe thrombocytopenia, POA, and stable, -His platelets are about 40,000 and today. Initial recommendations had been to use a threshold of 50,000. However he is having no bleeding symptoms and is medically stable. We will recheck in the morning and likely give a unit of platelets if less than 50 in anticipation of his bone marrow biopsy. #. Essential hypertension, present on admission. Chronic and active. - Continue lisinopril 20 mg daily - Continue metoprolol tartrate 50 mg BID, no changes #. Hyperlipidemia, present on admission. Chronic and stable. - Patient has had 2 stents placed (LAD, diagonal) - Continue atorvastatin 40 mg daily, no changes Acetaminophen as needed for mild pain, fever, headache. Vicodin as needed for moderate pain Bowel regimen as needed. Dispo- - Holding Coumadin, Hydroxyuria, and Aspirin until follow up with Dr. Nieves. - Follow up with Dr. Nieves this week as planned. - Follow up with your primary doctor in 1 week for blood pressure check. - Have added Hydrocortisone for possible adrenal insufficiency, consider titrating off slowly when follow up with your primary doctor. If blood pressure starts getting low again can go back to original dosing. Exam Vital Signs (Last) Date Time Temp Pulse Resp B/P Pulse Ox O2 Delivery O2 Flow Rate FiO2 03/01/17 11:28 36.9 71 18 139/84 97 Room Air Test 02/15/17 00:54 02/15/17 02:50 02/17/17 06:27 02/19/17 14:50 Troponin T 0.010ug/L (0.0-0.011) Urine Color Yellow (YELLOW) Urine Appearance Hazy (CLEAR,HAZY) Urine pH 6.0 (5.0-8.0) Urine Specific [place] 1.033 (1.003-1.035) Urine Protein Tracemg/dL (NEG,TRACE) Urine Glucose (UA) Negativemg/dL (NEGATIVE) Urine Ketones Negativemg/dL (NEGATIVE) Urine Occult Blood Trace (NEGATIVE) Urine Nitrite Negative (NEGATIVE) Urine Bilirubin Negative (NEGATIVE) Urine Urobilinogen Normalmg/dL (NORMAL) Urine Leukocyte Esterase Negative (NEGATIVE) Urine RBC 0-2/hpf (0-2) Urine WBC 0-5/hpf (0-5) Urine Epithelial Cells Occasional/hpf (NONE-MOD) Urine Crystals None seen (NONE SEEN) Urine Bacteria Few/hpf (NONE-FEW) Urine Hyaline Casts Rare/lpf (NONE) Urine Granular Casts None seen (NONE SEEN) Urine Waxy Casts None seen (NONE SEEN) Urine Red Blood Cell Casts None seen (NONE SEEN) Urine White Blood Cell Casts None seen (NONE SEEN) Urine Mucus Present (None Seen) Urine Trichomonas None seen (NONE SEEN) Urine Yeast None (NONE SEEN) Urinalysis Comment None Urine Culture Reflexed Not indicated Magnesium Level 1.7mg/dL (1.6-2.6) Prothrombin Time 11.3sec (8.1-12.5) Prothromb Time International Ratio 1.05ratio Test 02/20/17 10:13 02/21/17 17:26 02/21/17 20:48 02/22/17 03:30 Fibrinogen 631mg/dL (157-380) Lactic Acid Level 0.8mmol/L (0.4-2.0) Cortisol 55.6ug/dL (.) Blood Smear Pathologist Review Test 02/22/17 16:16 02/24/17 03:10 02/27/17 03:25 02/28/17 12:32 Activated Partial Thromboplast Time 30.1sec (22.8-33.0) Heparin-PF4 Ab Optical Density 0.219OD (<0.4) Heparin-PF4 Antibody Interpretation Not indicated Promyelocytes % 0% (0-0) Neutrophils (%) (Auto) 42.2% (40-74) Lymphocytes (%) (Auto) 21.6% (14-46) Monocytes (%) (Auto) 16.4% (4-12) Eosinophils (%) (Auto) 0.4% (0-5) Basophils (%) (Auto) 1.1% (0-3) Band Neutrophils % 13% (1-5) Metamyelocytes % 8% (0-0) Myelocytes % 1% (0-0) Nucleated Red Blood Cells 4/100 WBC (0-24) Hematology Comments Sodium Level 143mEq/L (134-144) Potassium Level 3.5mEq/L (3.5-5.2) Chloride Level 105mEq/L (97-108) Carbon Dioxide Level 24mmol/L (18-29) Blood Urea Nitrogen 22mg/dL (8-27) Creatinine 0.82mg/dL (0.76-1.27) Estimat Glomerular Filtration Rate 101mL/min (>59) Glucose Level 128mg/dL (60-99) Calcium Level 7.9mg/dL (8.5-10.1) Total Bilirubin 0.3mg/dL (0.0-1.2) Aspartate Amino Transf (AST/SGOT) 14U/L (0-50) Alanine Aminotransferase (ALT/SGPT) 40U/L (0-44) Alkaline Phosphatase 180U/L (25-160) Total Protein 5.1g/dL (6.4-8.4) Albumin 3.0g/dL (3.4-5.0) Test 03/01/17 05:36 White Blood Count 4.6th/mm3 (3.8-10.1) Red Blood Count 2.50mil/mm3 (4.40-5.80) Hemoglobin 8.3g/dL (13.8-17.2) Hematocrit 25.1% (41.0-50.0) Mean Corpuscular Volume 100.4fL (81-100) Mean Corpuscular Hemoglobin 33.2pg (27.0-35.0) Mean Corpuscular Hemoglobin Concent 33.1% (32.0-37.0) Red Cell Distribution Width 19.3% (12.3-15.4) Platelet Count 40bil/L (150-400) Discharge Medications Discharge Medications Astragalus Root (Astragalus Root) 1 Gm Powder 1 CAPSULE PO DAILY (Reported) Atorvastatin (Lipitor) 40 Mg Tablet 40 MG PO HS (Reported) Grape Seed Extract (Grape Seed Extract) 50 Mg Capsule 50 MG PO DAILY (Reported) Hydrocortisone (Hydrocortisone) 10 Mg Tablet 50 MG PO Q6H Prescribed by: CHRIS PENA MD Lisinopril (Lisinopril) 20 Mg Tablet 20 MG PO DAILY Prescribed by: JORDY ABREU DO Metoprolol Tartrate (Metoprolol Tartrate) 50 Mg Tablet 50 MG PO BID (Reported) Multivits-Min/FA/Lycopene/Lut (Centrum Silver Tablet) 1 Each Tablet 1 TABLET PO DAILY (Reported) Vit B Comp/C/FA/Iron/Vit E (Vitamin B Complex Tablet) 1 Each Tablet 1 TABLET PO DAILY (Reported) As needed Hydrocodone-Acetaminophen 5-325 mg (Hydrocodone-Acetaminophen 5-325 mg) 1 Each Tablet 1-2 TABLET PO Q4H PRN PRN For Mild Pain Prescribed by: MELODY HEATON MD Additional med instructions - Holding Coumadin, Hydroxyuria, and Aspirin until follow up with Dr. Nieves. - Have added Hydrocortisone for possible adrenal insufficiency. Followup Plan Disposition: Home Follow-up plan - Holding Coumadin, Hydroxyuria, and Aspirin until follow up with Dr. Nieves. - Follow up with Dr. Nieves this week as planned. - Follow up with your primary doctor in 1 week for blood pressure check. - Have added Hydrocortisone for possible adrenal insufficiency, consider titrating off slowly when follow up with your primary doctor. If blood pressure starts getting low again can go back to original dosing. May need referral to Clinical Pharmacy Manager. Discharge Diet: No restrictions Discharge Activity: No restrictions Patient Instructions You were hospitalized with acute left side pain and blood loss, you were found to have a bleeding in your left adrenal gland. You required transfusion multiple times, closely monitored in the hospital. Since you don't have any signs of acute bleeding, pain is controlled. You were being discharged to home. Please note that your Coumadin and Aspirin was discontinued due to this acute episode of bleeding. You may need to resume Aspirin in the future, However, please continue to hold it at this time. Your Hydroxyurea was also held, likely for few weeks as per . Please follow up with your primary doctor and as scheduled. Follow-up Provider: Raciel Inman MD Provider: Fernando Gonzalez MD Follow-up in: 1 week Time spent Greater than 30 minutes was spent in preparation of discharge with greater than 50% of that time dedicated to patient counseling and coordination of care. Chris Pena MD Mar 01, 2017 15:14 Provider: Fernando Gonzalez MD Follow-up in: 1 week Time spent Greater than 30 minutes was spent in preparation of discharge with greater than 50% of that time dedicated to patient counseling and coordination of care. Chris Pena MD Mar 01, 2017 15:14
[2017-03-01] MEDS ORDERED: 0.9% Sodium Chloride 250 ML IV SCH (15:30)
[2017-03-01] MEDS ORDERED: HYDR10TA12 PO (15:44)
--- NOTE | 2017-03-01 15:48 | PCM.DIMED ---
Discharge Instructions Date of Service Mar 01, 2017 Dates of Hospitalization Feb 15, 2017 at 04:08 Discharge Diagnosis Discharge Diagnosis acute dx Left adrenal hemorrhage. Acute blood loss anemia, from adrenal hemorrhage and possibly myelofibrosis Left Flank Pain with adrenal hemorrhage Severe thrombocytopenia Essential hypertension chronic dx Myeloproliferative disorder Hyperlipidemia Medication Instructions Additional med instructions - Holding Coumadin, Hydroxyuria, and Aspirin until follow up with Dr. Nieves. - Have added Hydrocortisone for possible adrenal insufficiency. Diet Discharge Diet: No restrictions Activity Discharge Activity: No restrictions Call your provider Call your provider for: Other (flank pain, ) Patient Instructions Patient Instructions You were hospitalized with acute left side pain and blood loss, you were found to have a bleeding in your left adrenal gland. You required transfusion multiple times, closely monitored in the hospital. Since you don't have any signs of acute bleeding, pain is controlled. You were being discharged to home. Please note that your Coumadin and Aspirin was discontinued due to this acute episode of bleeding. You may need to resume Aspirin in the future, However, please continue to hold it at this time. Your Hydroxyurea was also held, likely for few weeks as per . Please follow up with your primary doctor and as scheduled. Follow-up plan - Holding Coumadin, Hydroxyuria, and Aspirin until follow up with Dr. Nieves. - Follow up with Dr. Nieves this week as planned. - Follow up with your primary doctor in 1 week for blood pressure check. - Have added Hydrocortisone for possible adrenal insufficiency, consider titrating off slowly when follow up with your primary doctor. If blood pressure starts getting low again can go back to original dosing. May need referral to [facility]. Follow-up Provider: Raciel Inman MD Provider: Fernando Gonzalez MD Follow-up in: 1 week Otoniel Guerrero MD Mar 01, 2017 15:48
[2017-03-01 16:17] VITALS: BP 165/84; PULSE 62; RESP 20; O2SAT 97
--- NOTE | 2017-03-01 17:24 | NUR ---
Social Work- Discharge Data: EMR reviewed. Pt is on day 14 of hospitalization. Pt discussed in multidisciplinary rounds, pt to receive bone biopsy and then discharge. Bone Biopsy has been completed, pt will follow up with Oncology as an outpt. No SW needs identified in rounds, discharge orders are active. Pt to discharge home with his friend back to [place], no discharge needs identified. Assessment: Pt who is independent at baseline. Plan: Pt to discharge home with friend to transport via POV. No discharge needs. ALISE Chen
[2017-03-01] MEDS: Hydrocortisone 10 mg Tablet PO SCH ×2 (17:28→21:09)
[2017-03-01 18:15] VITALS: BP 159/86; PULSE 66; RESP 20
--- NOTE | 2017-03-01 19:22 | CCS NOTE ---
[facility] [address], [address] [address] MEDICAL ONCOLOGY OFFICE NOTE PATIENT: TRISTAN CAZARES : 1955 MR#: [id number] DATE: 02/15/2017 JOB ID: [id number] DATE: 03/01/2017 I have been in communication with the hospitalist team over the weekend and monitoring his counts. He has been stabilizing to some degree with his hemoglobin around 8.5 over the past 48 hours, not requiring any transfusions. His flank pain had resolved and I saw him on Tuesday but then had flared up again mostly in form of abdominal pain and therefore we decided to repeat CT scan of abdomen and pelvis which did not show any increase in hemorrhage in the adrenal glands. He reports today that the pain has resolved. He had a good bowel movement and might have been related to that. He is ambulating in the hallways. Has not had any further fevers. On exam, vitals are stable. Lungs clear to auscultation. Heart regular. Abdomen is soft. ASSESSMENT AND PLAN: A 61-year-old gentleman with JAK2 mutation positive myeloproliferative disorder in May 2015, at that time with elevated white count and platelet count, on hydroxyurea until recently. Hydroxyurea has normalized his counts. However, on February 15, he was admitted with cytopenias that have been deteriorating since then. He also had bilateral adrenal hemorrhage. We are now planning to proceed with a bone marrow biopsy to investigate the cytopenia. The main issue will be whether he had progressed to have myelofibrosis versus hypocellular bone marrow. The patient was counseled and he is agreeable to proceed with a bone marrow biopsy today and after that he should receive one unit of packed red cells to carry him towards the end of this week and then we would see him in the clinic on Tuesday, March 04, for assessment of transfusion needs before the weekend. I am planning to bring him to the clinic with nurse evaluation of his counts and my decision regarding transfusion support on March 04 and March 08 and see him the following week with pending bone marrow biopsy results.
--- NOTE | 2017-03-01 19:35 | PROCED ---
[address] [address] PROCEDURE NOTE PATIENT: TRISTAN CAZARES : 1955 MR#: [id number] ADMIT: 02/15/2017 JOB ID: [id number] DATE OF SERVICE: 03/01/2017 POSTOPERATIVE DIAGNOSIS(ES): PREOPERATIVE DIAGNOSIS(ES): SURGEON: Raciel Nieves MD PROCEDURE: Bone marrow aspiration and core biopsy. INDICATION: Worsening anemia and thrombocytopenia in the setting of previous myeloproliferative disorder JAK2 mutation positive. CONSENT: Informed consent was obtained. DESCRIPTION OF PROCEDURE: The patient's blood count currently has a platelet count of 40 and he is no longer on anticoagulation or aspirin. The patient was placed on prone position and the left posterior iliac crest prepped with alcohol. Local anesthesia with 2% lidocaine applied to the skin and deeper tissue. Jamshidi needle advanced and iliac crest accessed. Aspirated volume was relatively small but we were able to get about 1-2 mL. An additional 2 cc was obtained for flow cytometry and cytogenetics. Bone marrow needle was removed and reinserted in a neighboring area, and an 8 mm core was obtained successfully. No bleeding complications. Patient awake during the procedure.
[2017-03-01 20:50] VITALS: BP 150/81; PULSE 69; RESP 18; O2SAT 95
--- NOTE | 2017-03-01 21:38 | NUR ---
Patient Discharged Patient discharged at 2130. IV bilateral arms d/c's intact. Patient V/S stable. No fever/chills. Discharge instructions to patient and copy signed and put in chart. Patient walked out with , escorted by RN.
--- NOTE | 2017-03-03 11:14 | NUR ---
spiritual care: (late entry) corridor O[facility] conversation as pt awaited discharge. he reflected on hobbies, hopes and values as he anticipated transfusion. Pt eager to return to his home, projects and friends.
--- NOTE | 2017-03-07 15:04 | PATH ---
SURGICAL PATHOLOGY Attending Physician:Raciel Hernández CASE STATUS: Signed Out PATIENT NAME: TRISTAN CAZARES PID: [id number] : 1955 DATE COLLECTED:03/01/2017 19:30 SPECIMEN: 1: Bone Marrow, Aspiration 2: Bone Marrow, Biopsy 3: Bone Marrow, peripheral smear CLINICAL HISTORY: NEW CYTOPENIA, HISTORY OF JUAN-2 POSITIVE MPN, MYELOPROLIFERATIVE NEOPLASM (MPN) FINAL DIAGNOSIS: Peripheral Blood: WBC: Left-shifted granulocytes with 4% blasts. RBC: Marked macrocytic anemia with polychromasia and nucleated RBC; few teardrop forms are present. Platelets: Marked thrombocytopenia with rare giant platelets. Bone Marrow, Aspiration and Biopsy: Hypercellular marrow with diffuse 3+ reticulin fibrosis and markedly atypical megakaryocytes; findings consistent with the fibrotic stage of a myeloproliferative neoplasm; please see comment. ICD10: D47.1 NOTE: Based upon the bone core biopsy, the marrow is markedly hypercellular and substantially replaced by diffuse reticulin fibrosis. While the accompanying flow cytometric analysis suggested a large percentage of abnormal myeloid blasts, immunohistochemistry performed on the bone core biopsy did not show findings that would correlate with the flow cytometric analysis. This could be due to a sampling discordance between the aspirate submitted for flow cytometry and the bone core biopsy or else a decreased sensitivity of the staining for CD117 and CD34 in the decalcified core biopsy sections. A second limitation is the absence of marrow particles or biopsy touch prep in which to perform a morphologic estimate of the blast percentage. Using the combined flow cytometric and immunohistochemical findings together, the estimated blast percentage is 5%. Based upon the increased cellularity in the marrow and the more extensive involvement by reticulin fibrosis, it is apparent that there has been significant progression of the fibrotic stage of the myeloproliferative neoplasm since the prior biopsy which was performed in 04/2015 ([id number]). Flow Interpretation: ([id number]) Bone marrow aspirate: Abnormal myeloid blasts are detected at 12% of the total marrow cells analyzed; immunophenotypic abnormalities are also detected in the maturing granulocyte and monocyte populations; see Comment. Flow Comment: The flow cytometric analysis of the bone marrow aspirate shows an abnormal myeloid blast population as well as immunophenotypic abnormalities in the maturing granulocyte and monocyte populations. The abnormal myeloid blasts express homogeneous CD34, CD117, HLA-DR and CD38 with aberrant expression of CD56 and CD7 on small subsets. CD13 and CD33 are greatly diminished on the abnormal myeloid blasts. The abnormal myeloid blasts comprise 56% of the cells in the expanded blast gate and 12% of the total marrow cells analyzed. Immunophenotypic abnormalities in the maturing granulocyte and monocyte populations consist of aberrant coexpression of CD56 on large subsets. The maturing granulocytes also show abnormal increased CD64. No abnormal lymphocyte population is identified. In summary, the flow cytometric analysis is consistent with a myeloid stem cell abnormality with an increase in abnormal myeloid blasts (12% of the total marrow cells). The myeloid blasts are significantly increased from the prior analysis of a bone marrow aspirate collected on 05/26/2015 ([id number]) in which the abnormal myeloid blasts were detected at 1.9% of the total marrow cells analyzed. The increase in blasts suggests a significant progression in the disease status although it is important to correlate the flow cytometric findings with the bone marrow morphology and cytogenetics. GROSS DESCRIPTION: Received 20 Bone Marrow Aspiration Slides 2 Peripheral Blood Slides 1 Biopsy Core in Formalin 1 Aspirate Clot in Formalin 2 Green Top Tube Accompanied with the specimens is a requisition for Flow Cytometry. MICRO DESCRIPTION: Peripheral Blood: Review of the peripheral smear shows WBC with about 4% blasts. Rare myelocytes are also identified. RBC are macrocytic with polychromasia and occasional nucleated RBC. Few teardrop forms are identified. Platelets are markedly decreased, and occasional giant platelets are present. Bone Marrow: Sections from the marrow clot show only clotted blood, and the prepared aspirate smears also contain only blood. No touch imprint from the bone core biopsy was prepared. Therefore, the morphologic evaluation of the bone marrow biopsy is based entirely upon sections from the bone core biopsy. This shows a markedly hypercellular marrow approaching 80%-85%. A substantial amount of the cellularity is due to marrow fibrosis in which highly atypical megakaryocytes are distributed. Rare areas of hematopoietic cellularity in which myeloid and erythroid elements are present. Clusters of immature cells that would suggest a substantial increase in blasts is not identified. An iron stain performed on the core biopsy shows trace positive stainable iron. A reticulin stain performed on the bone core biopsy shows diffuse 3+ reticulin fibrosis. IMMUNOHISTOCHEMISTRY Immunohistochemistry is performed for CD117 and for CD34 in order to attempt to estimate the blast percentage in the marrow. The positive staining for CD117 is identified in at most 5% of the marrow nucleated cells whereas less than 1% are positive for CD34. ICD-9 CODES: CPT CODES: 1: 40216, 58113 2: 54617, 88266, 07323, 26613, 09301, 88139 3: 40006 Electronically Signed Out Panchito Gonsales MD, PhD [facility] [address], [place] [address] Technical component performed at [facility], [address], [place], [address]
== END 2017-03-01 21:34 | disposition home or self-care (01) | DRG 644 ==
LOC: SED 00:03 → MPC 04:08 → OBSVTOIN 04:08 → MPC 04:45 → MOC 02-21 16:30 → PCC 02-21 18:36 → OSC 02-27 17:20
PROVIDERS: ADMIT Internal Medicine; ATTEND Internal Medicine
PROC: 30233N1 Transfusion of Nonautologous Red Blood Cells into Peripheral Vein, Percutaneous Approach (ICD-10-PCS; 2017-02-15)
PROC: 30233N1 Transfusion of Nonautologous Red Blood Cells into Peripheral Vein, Percutaneous Approach (ICD-10-PCS; 2017-02-17)
PROC: 30233R1 Transfusion of Nonautologous Platelets into Peripheral Vein, Percutaneous Approach (ICD-10-PCS; principal; 2017-02-21)
PROC: 30233R1 Transfusion of Nonautologous Platelets into Peripheral Vein, Percutaneous Approach (ICD-10-PCS; 2017-02-22)
PROC: 30233N1 Transfusion of Nonautologous Red Blood Cells into Peripheral Vein, Percutaneous Approach (ICD-10-PCS; 2017-02-23)
PROC: 0DJD8ZZ Inspection of Lower Intestinal Tract, Via Natural or Artificial Opening Endoscopic (ICD-10-PCS; 2017-02-24)
PROC: 0DJ08ZZ Inspection of Upper Intestinal Tract, Via Natural or Artificial Opening Endoscopic (ICD-10-PCS; 2017-02-24 14:45)
PROC: 30233R1 Transfusion of Nonautologous Platelets into Peripheral Vein, Percutaneous Approach (ICD-10-PCS; 2017-02-25)
PROC: 30233N1 Transfusion of Nonautologous Red Blood Cells into Peripheral Vein, Percutaneous Approach (ICD-10-PCS; 2017-02-25)
PROC: 07DR3ZX Extraction of Iliac Bone Marrow, Percutaneous Approach, Diagnostic (ICD-10-PCS; 2017-03-01)
PROC: 30233N1 Transfusion of Nonautologous Red Blood Cells into Peripheral Vein, Percutaneous Approach (ICD-10-PCS; 2017-03-01)
DX: E27.49 Other adrenocortical insufficiency (principal); D47.1 Chronic myeloproliferative disease; D62 Acute posthemorrhagic anemia; K92.1 Melena; K63.3 Ulcer of intestine; J90 Pleural effusion, not elsewhere classified; D69.6 Thrombocytopenia, unspecified; K31.9 Disease of stomach and duodenum, unspecified; Z86.711 Personal history of pulmonary embolism; Z79.01 Long term (current) use of anticoagulants; Z95.5 Presence of coronary angioplasty implant and graft; I25.10 Atherosclerotic heart disease of native coronary artery without angina pectoris; I10 Essential (primary) hypertension; E78.5 Hyperlipidemia, unspecified; F12.90 Cannabis use, unspecified, uncomplicated; F17.210 Nicotine dependence, cigarettes, uncomplicated

== ENCOUNTER 2017-03-09 08:11 | Inpatient (IN) | payer MEDICARE ==
[~2017-03-09] VITALS: Ht 188 cm; Wt 78.7 kg
[2017-03-09] VITALS (10 sets, daily range): BP systolic 137–166; BP diastolic 77–94; PULSE 78–108; RESP 17–25; O2SAT 95–97
[~2017-03-09 08:11] MED LIST changes: -ASPI-973 PO; +ASTR1POW PO; +GRAP50CA5 PO; -HYD500 PO; +HYDR-4003 PO; +HYDR10TA12 PO; -HYDR500C2 PO; +MULT-1073 PO; -MULT-896 PO; +VIT1TABL83 PO; -WARF5TAB7 PO; -WARF7.5T4 PO
--- NOTE | 2017-03-09 08:49 | ED.REPORT ---
HPI-General Illness Date of Service Mar 09, 2017 ED Provider: Elise Bell MD Patient is a 61 year old male with a hx of myeloproliferative disorder on chemo , CAD, and HTN who presents to the ED complaining of intermittent SOB. His symptoms are worse with laying down, eating, and exertion. Associated symptoms include chest and back pressure that he describes as a "band", constipation, decreased urination, and increasing leg swelling (for the past few weeks). His symptoms have been preventing him from sleeping. He denies nausea, vomiting, diaphoresis, fever, or any other symptoms. His reports he has gained 10-15 lbs in the last 3 weeks. He reports having similar symptoms previously during his recent hospitalization. He was hospitalized for bilateral adrenal hemorrhage. Nursing Notes Stated Complaint: BREATHING PROBLEM Chief Complaint: Respiratory Complaints Nursing Notes Reviewed: Yes Allergies: Coded Allergies: No Known Allergies (Unverified , 07/01/11) Scheduled Atorvastatin (Lipitor) 40 Mg Tablet 40 MG PO HS Hydrocortisone (Hydrocortisone) 10 Mg Tablet 50 MG PO Q6H Lisinopril (Lisinopril) 20 Mg Tablet 20 MG PO DAILY Metoprolol Tartrate (Metoprolol Tartrate) 50 Mg Tablet 50 MG PO BID Multivits-Min/FA/Lycopene/Lut (Centrum Silver Tablet) 1 Each Tablet 1 TABLET PO DAILY Vit B Comp/C/FA/Iron/Vit E (Vitamin B Complex Tablet) 1 Each Tablet 1 TABLET PO DAILY General Time Seen by MD: 08:35 Chief Complaint Breathing problem Hx Obtained From: Patient Arrived By: Walk-in Sudden in Onset?: Yes Onset Occurred: Onset unknown Symptom Duration: Intermittent Severity: Current: No pain currently Severity: Maximum: No pain Recent Healthcare: Recent hospitalization Similar Sx Previous: Yes Past Medical History Past Medical History Notes: Medical History: 1. Myocardial infarction, status post 2 stents placed 2. Diverticulosis with one episode of diverticulitis 3 years ago 3. Frequent left shoulder dislocations, occasional right shoulder dislocations Surgical history: 1. Coronary artery stents x2 2. The patient endorses he had a "permanent valve" placed in his right femoral vein for cardiac catheter access 3. Bilateral inguinal herniorrhaphies Past Medical History 1. Coronary artery disease. 2. Angioplasty to the mid left anterior descending. 3. Angioplasty to the diagonal branch of left anterior descending. 4. Hypertension. 5. Hyperlipidemia. 6. History of smoking. 7. History of low back pain. 8. GERD 9. Arthritis 10. Sciatica 11. TIA 12. Leukemia with 2 rounds of chemo Past Surgical History Cardiac Cath cardiac stents BIH repair skin CA excision Family History noncontributory Smoking History Former Smoker Social History Alcohol Use: Denies alcohol use Drug Use: THC Ambulatory Status Independent Review of Systems +weight gain Full Review of Systems Constitutional: Denies: Fever Respiratory: Reports: Shortness of breath Cardiovascular: Reports: Chest pain (pressure ) GI: Reports: Constipation, Denies: Nausea, Vomiting Male: Reports Urination decreased Musculoskeletal: Reports: Back pain (pressure ), Extremity swelling Skin: Denies Diaphoresis Complete sys rev & neg: except as marked. Physical Exam Vital Signs Vital Signs Date Time Temp Pulse Resp B/P Pulse Ox O2 Delivery O2 Flow Rate FiO2 03/09/17 12:35 85 18 137/87 96 Room Air 03/09/17 08:40 85 25 153/81 96 Room Air 03/09/17 08:21 36.4 84 18 165/94 97 Room Air Initial VS: Reviewed, Vital signs abnormal Head / Eyes: Atraumatic, Normocephalic Neck: Supple, Full range of motion Abdomen / GI: Soft, Non-tender Skin: Warm, Dry Neurologic: Alert, Oriented, Nonfocal Psychiatric: Mood/affect normal, Behavior normal, Normal thought content General/Constitutional: Awake, Alert, No acute distress Respiratory / Chest: Atraumatic, No wheezing Decreased breath sounds on R Cardiovascular: Heart rate NL, Regular rhythm, Heart sounds NL Lower Ext Edema: Positive: Bilateral 3+, Pitting Good perfusion Interpretation & Diagnostics Lab Results Interpretation Result Diagram: 03/09/17 0850 03/09/17 0850 Test 03/09/17 08:50 03/09/17 12:36 White Blood Count 5.3th/mm3 (3.8-10.1) Red Blood Count 2.84mil/mm3 (4.40-5.80) Hemoglobin 9.4g/dL (13.8-17.2) Hematocrit 28.7% (41.0-50.0) Mean Corpuscular Volume 101.1fL (81-100) Mean Corpuscular Hemoglobin 33.1pg (27.0-35.0) Mean Corpuscular Hemoglobin Concent 32.8% (32.0-37.0) Red Cell Distribution Width 19.3% (12.3-15.4) Platelet Count 55bil/L (150-400) Neutrophils (%) (Auto) 46% (40-74) Lymphocytes (%) (Auto) 29% (14-46) Monocytes (%) (Auto) 6% (4-12) Eosinophils (%) (Auto) 1% (0-5) Basophils (%) (Auto) 2% (0-3) Band Neutrophils % 10% (1-5) Metamyelocytes % 4% (0-0) Blast Cells % 2% (0-0) Nucleated Red Blood Cells 4/100 WBC (0-24) Sodium Level 139mEq/L (134-144) Potassium Level 3.7mEq/L (3.5-5.2) Chloride Level 100mEq/L (97-108) Carbon Dioxide Level 23mmol/L (18-29) Blood Urea Nitrogen 13mg/dL (8-27) Creatinine 0.73mg/dL (0.76-1.27) Estimat Glomerular Filtration Rate 116mL/min (>59) Glucose Level 187mg/dL (60-99) Calcium Level 8.6mg/dL (8.5-10.1) Magnesium Level 1.8mg/dL (1.6-2.6) Total Bilirubin 0.7mg/dL (0.0-1.2) Aspartate Amino Transf (AST/SGOT) 22U/L (0-50) Alanine Aminotransferase (ALT/SGPT) 63U/L (0-44) Alkaline Phosphatase 197U/L (25-160) Troponin T 0.010ug/L (0.0-0.011) Pro-B-Type Natriuretic Peptide 4919pg/mL (0-210) Total Protein 6.1g/dL (6.4-8.4) Albumin 3.4g/dL (3.4-5.0) Lipase 12U/L (13-60) Hold Beltre Top Tube Received (Received) Urine Color Straw (YELLOW) Urine Appearance Clear (CLEAR,HAZY) Urine pH 7.0 (5.0-8.0) Urine Specific Bagley 1.015 (1.003-1.035) Urine Protein Negativemg/dL (NEG,TRACE) Urine Glucose (UA) Negativemg/dL (NEGATIVE) Urine Ketones Negativemg/dL (NEGATIVE) Urine Occult Blood Negative (NEGATIVE) Urine Nitrite Negative (NEGATIVE) Urine Bilirubin Negative (NEGATIVE) Urine Urobilinogen Normalmg/dL (NORMAL) Urine Leukocyte Esterase Negative (NEGATIVE) Urine RBC 0-2/hpf (0-2) Urine WBC 0-5/hpf (0-5) Urine Epithelial Cells Occasional/hpf (NONE-MOD) Urine Crystals None seen (NONE SEEN) Urine Bacteria None/hpf (NONE-FEW) Urine Hyaline Casts None/lpf (NONE) Urine Granular Casts None seen (NONE SEEN) Urine Waxy Casts None seen (NONE SEEN) Urine Red Blood Cell Casts None seen (NONE SEEN) Urine White Blood Cell Casts None seen (NONE SEEN) Urine Mucus None seen (None Seen) Urine Trichomonas None seen (NONE SEEN) Urine Yeast None (NONE SEEN) Urinalysis Comment None Urine Culture Reflexed Not indicated Lab Results Interpretation: Preliminary ultrasound report; Liver normal, no gallbladder wall thickness, no pericholecystic fluid. No change to adrenal glands. Bilateral pleural effusions. No ascites ECG Interpretation ECG Interpretation: Sinus rate 78 Ventricular premature complex Probable L atrial enlargement Anteroseptal infarct, old No ischemia Similar to prior dated 02/15/17 Time: 09:14 Interpreted by: ED physician X-Ray Chest Interpretation Chest Xray Interpretation: IMPRESSION: There is a new bi-basilar pneumonia pattern, right greater than left. Superimposed COPD. Dictated by: Carson Vance M.D. on 03/09/2017 at 9:23 Approved by: Carson Vance M.D. on 03/09/2017 at 9:24 View: Portable, 1 view Interpretation / Wet Read by: Interpret - Radiologist Re-Eval/Medical Decision Med Decision/Clinical Course 61-year-old gentleman presents with significant orthopnea. Only able to lay down for approximately 2 hours. 10-15 pound weight gain over the last few weeks. Increased lower extremity edema. He has a history of myeloproliferative disorder and has significantly abnormal CBC. He has a slight cough and complaining of a bandlike pain around the upper abdomen. He can re-create this pain by laying flat for 2 hours before eating. He was recently admitted to the hospital at this point labs and x-rays suggestive of a bilateral pneumonia this certainly could explain some of the pain he is experiencing. Antibiotics started in the emergency department. He also is showing signs and symptoms of new congestive heart failure with orthopnea and will need additional evaluation. Furosemide is started in the emergency department. There is no evidence of sepsis nor hypotension today. Additional evaluation of his gallbladder was done in the form of ultrasound. Given his pain after eating gallbladder dysfunction and certainly needs to continue to be considered. CT scan from 2 weeks ago is reviewed. May well benefit from HIDA scan while an inpatient Time of Eval: 11:38 Re-Evaluation/Progress Note: Discussed imaging and lab results. Discussed plan for admission. Patient understands and agrees with plan. All questions addressed at this time. Consultation : Referral / Consult Name: Estela Gandara MD Consulted With: Hospitalist Call Returned at: 12:50 Athletic Shoe Designer: Will see patient, Agrees with eval, Agrees with plan, Accepts admit Note: Discussed pt's case. Accepts admit. Counseled Regarding: Diagnosis, Lab results, Need for admission Discharge & Departure Primary Impression: Pneumonia Pneumonia type: due to unspecified organism Laterality: bilateral Lung location: unspecified part of lung Qualified Code: J18.9 - Pneumonia, unspecified organism Additional Impressions: Heart failure Heart failure type: unspecified heart failure type Heart failure chronicity: unspecified heart failure chronicity Qualified Code: I50.9 - Heart failure, unspecified Myeloproliferative disorder Pancytopenia Ruled Out: Cholecystitis Disposition: ADMITTED TO HOSPITAL Discharge Condition All VS Reviewed: Yes Condition: Stable Referrals: Jarrell Gonzalez MD (PCP) [facility] Attestation Portions of this note were transcribed by Eddie Nair. I, Dr. Bell personally performed the history, physical exam and medical decision-making; I reviewed and confirmed the accuracy of the information in the transcribed note. Signed by: Wally Oden, 03/09/17 copies to: Jarrell Gonzalez MD, Shawna L MD Mar 09, 2017 08:48 EDDIE NAIR Mar 09, 2017 09:00
[2017-03-09 09:19] LABS: Mean Corpuscular Hemoglobin 33.1 pg (27.0-35.0); Mean Corpuscular Volume 101.1 fL (81-100); Platelet Count 55 bil/L (150-400)
--- NOTE | 2017-03-09 09:26 | DRSVH ---
PROCEDURE: X-RAY CHEST ONE VIEW, PORTABLE ([id number]) INDICATIONS: dyspnea and abdominal pain TECHNIQUE: One view of the chest was acquired. COMPARISON: [facility], CT, CT ABD PELVIS W CON, 02/27/2017, 10:29. FINDINGS: Surgical changes and devices: None. Lungs and pleura: No pleural effusions or pneumothorax. Lungs are abnormal with pulmonary hyperexpa nsion and a new finding of what appears to be mild or early pneumonia at each lung base, greater on t he right than the left. This is in reference to the lower portion of the chest included on a recent abdomen/pelvis CT scan from 02/27/17. Mediastinum: Mediastinal contours appear normal. Heart size is normal. Bones and chest wall: No suspicious bony lesions. Overlying soft tissues appear unremarkable. IMPRESSION: There is a new bi-basilar pneumonia pattern, right greater than left. Superimposed COPD. Dictated by: Carson Vance M.D. on 03/09/2017 at 9:23 Approved by: Carson Vance M.D. on 03/09/2017 at 9:24
[2017-03-09 09:51] LABS: Magnesium 1.8 mg/dL (1.6-2.6)
[2017-03-09 10:19] LABS: NEUTROPHILS % (AUTO) 46 % (40-74)
[2017-03-09 10:20] LABS: BASOPHILS % (AUTO) 2 % (0-3); EOSINOPHILS % (AUTO) 1 % (0-5); MONOCYTES % (AUTO) 6 % (4-12)
[2017-03-09] MEDS ORDERED: Azithromycin Inj 500 MG in Dextrose 5% w/Vial Mate 250 ML IV ONE (12:05)
[2017-03-09] MEDS ORDERED: cefTRIAXone Inj 2,000 MG in Dextrose 5% Minibag Plus 50 ML IV ONE (12:05)
[2017-03-09] MEDS ORDERED: Furosemide 10 mg/mL 4 mL Inj IVPUSH ONE (12:05)
[2017-03-09] MEDS ORDERED: Alum-Mag Hydrox-Simeth 30 mL Suspension PO PRN ×2 (12:55→17:40)
[2017-03-09] MEDS ORDERED: Ondansetron 2 mg/mL 2 mL Inj IVPUSH PRN ×2 (12:55→17:40)
[2017-03-09 13:41] LABS: APPEARANCE,URINE CLEAR (CLEAR,HAZY); COLOR,URINE STRAW (YELLOW); OCCULT BLOOD,URINE NEGATIVE (NEGATIVE); UROBILINOGEN,URINE NORMAL (NORMAL)
--- NOTE | 2017-03-09 15:37 | NUR ---
Admit to room 239-1 Pt arrived from ER via w/ch.. Able to stand and transfer into chair indep. Oriented to room and call light.
--- NOTE | 2017-03-09 16:48 | NUR ---
Pain/mobility pt reports no pain since arrival to floor. Requested to set up in chair as "afraid" to lay down as this is when the pain starts. Indep amb hallway many loops at a time.
[2017-03-09] MEDS ORDERED: Polyethylene Glycol (PEG) 17 Gm Powder PO PRN (17:40)
[2017-03-09] MEDS ORDERED: Senna-Docusate 8.6-50 mg Tablet PO PRN (17:40)
--- NOTE | 2017-03-09 17:50 | PCM.HPMED ---
Subjective Date of Service Mar 09, 2017 Primary Provider: Admitting Physician: Estela Gandara MD Primary Care Physician: Jarrell Gonzalez MD Attending Physician: Estela Gandara MD Admit Status: From the Emergency Department, Full Admit, Remote Telemetry Chief Complaint: Increasing shortness of breath and lower extremity edema History of Present Illness: This 61-year-old male who is recently discharged from the hospital on March 01. He was hospitalized then from February 15. He had acute blood loss at that time from an adrenal hemorrhage bilateral and was on anticoagulation therapy at the time. He does have a history of myelofibrosis and is followed by Dr. Nieves. Currently his Coumadin hydroxyurea and aspirin have been held since that discharge. He was on hydrocortisone with titrating slowly down. He does have thrombocytopenia with last platelet count was 40,000 upon discharge on the . Patient notes that over the past week or so since discharge she has had increasing lower extremity edema and shortness of breath. He also finds it difficult to lie flat in bed and is getting progressively worse. He will have to sit up in a chair to try to sleep. He does feel some chest tightness like a band across his lower chest wall area. He has had no prior symptoms similar to this. Review of Systems: Patient denies cough denies fevers or chills. The nausea vomiting. Denies any worsening abdominal pain since discharge. Patient did have a bone marrow biopsy done on which revealed a persistent marrow with diffuse 3+ reticulin fibrosis and markedly atypical megakaryocytes. Things consistent with fibrotic stage of a myeloproliferative neoplasm. Allergies Coded Allergies: No Known Allergies (Unverified , 07/01/11) Home Medications Scheduled Atorvastatin (Lipitor) 40 Mg Tablet 40 MG PO HS Hydrocortisone (Hydrocortisone) 10 Mg Tablet 50 MG PO Q6H Lisinopril (Lisinopril) 20 Mg Tablet 20 MG PO DAILY Metoprolol Tartrate (Metoprolol Tartrate) 50 Mg Tablet 50 MG PO BID Multivits-Min/FA/Lycopene/Lut (Centrum Silver Tablet) 1 Each Tablet 1 TABLET PO DAILY Vit B Comp/C/FA/Iron/Vit E (Vitamin B Complex Tablet) 1 Each Tablet 1 TABLET PO DAILY PMH Past Medical History Notes: Medical History: 1. Myocardial infarction, status post 2 stents placed 2. Diverticulosis with one episode of diverticulitis 3 years ago 3. Frequent left shoulder dislocations, occasional right shoulder dislocations Surgical history: 1. Coronary artery stents x2 2. The patient endorses he had a "permanent valve" placed in his right femoral vein for cardiac catheter access 3. Bilateral inguinal herniorrhaphies Past Medical History 1. Coronary artery disease. 2. Angioplasty to the mid left anterior descending. 3. Angioplasty to the diagonal branch of left anterior descending. 4. Hypertension. 5. Hyperlipidemia. 6. History of smoking. 7. History of low back pain. 8. GERD 9. Arthritis 10. Sciatica 11. TIA 12. Leukemia with 2 rounds of chemo Past Surgical History Cardiac Cath cardiac stents BIH repair skin CA excision Family History No family history of myeloproliferative disorders. Social History Hx Alcohol Use: Yes (freq) Hx Substance Use: Yes (Occasional marijuana) Hx Tobacco Use: Yes (2 cigarettes a day) Smoking Status: Former Smoker Living Arrangement: with Family Exam Vital Signs Vital Sign - Last Date Time Temp Pulse Resp B/P Pulse Ox O2 Delivery O2 Flow Rate FiO2 03/09/17 17:17 36.3 82 20 147/88 95 Room Air Exam Constitutional: Middle-aged male in mild respiratory distress Head: Normocephalic atraumatic Eyes: PERRLA DC EOMI Mouth: No lesions Neck: No adenopathy Chest: Reveals some crackles and decreased breath sounds at his bases Cor: Regular rate and rhythm S1-S2 Abdomen: Soft nontender bowel sounds present Extremities: 2+ lower extremity edema Psych: Mood and affect are appropriate Skin: No lesions or E does have some contusions where his IVs were placed previous visit on his left and right forearms Neuro: Alert and oriented 3, motor strength is intact bilaterally Lab and Diagnostics Labs Laboratory Tests 72 Hours Test 03/09/17 08:50 03/09/17 12:36 White Blood Count 5.3th/mm3 (3.8-10.1) Red Blood Count 2.84mil/mm3 (4.40-5.80) Hemoglobin 9.4g/dL (13.8-17.2) Hematocrit 28.7% (41.0-50.0) Mean Corpuscular Volume 101.1fL (81-100) Mean Corpuscular Hemoglobin 33.1pg (27.0-35.0) Mean Corpuscular Hemoglobin Concent 32.8% (32.0-37.0) Red Cell Distribution Width 19.3% (12.3-15.4) Platelet Count 55bil/L (150-400) Neutrophils (%) (Auto) 46% (40-74) Lymphocytes (%) (Auto) 29% (14-46) Monocytes (%) (Auto) 6% (4-12) Eosinophils (%) (Auto) 1% (0-5) Basophils (%) (Auto) 2% (0-3) Band Neutrophils % 10% (1-5) Metamyelocytes % 4% (0-0) Blast Cells % 2% (0-0) Nucleated Red Blood Cells 4/100 WBC (0-24) Sodium Level 139mEq/L (134-144) Potassium Level 3.7mEq/L (3.5-5.2) Chloride Level 100mEq/L (97-108) Carbon Dioxide Level 23mmol/L (18-29) Blood Urea Nitrogen 13mg/dL (8-27) Creatinine 0.73mg/dL (0.76-1.27) Estimat Glomerular Filtration Rate 116mL/min (>59) Glucose Level 187mg/dL (60-99) Calcium Level 8.6mg/dL (8.5-10.1) Magnesium Level 1.8mg/dL (1.6-2.6) Total Bilirubin 0.7mg/dL (0.0-1.2) Aspartate Amino Transf (AST/SGOT) 22U/L (0-50) Alanine Aminotransferase (ALT/SGPT) 63U/L (0-44) Alkaline Phosphatase 197U/L (25-160) Troponin T 0.010ug/L (0.0-0.011) Pro-B-Type Natriuretic Peptide 4919pg/mL (0-210) Total Protein 6.1g/dL (6.4-8.4) Albumin 3.4g/dL (3.4-5.0) Lipase 12U/L (13-60) Hold Beltre Top Tube Received (Received) Urine Color Straw (YELLOW) Urine Appearance Clear (CLEAR,HAZY) Urine pH 7.0 (5.0-8.0) Urine Specific [place] 1.015 (1.003-1.035) Urine Protein Negativemg/dL (NEG,TRACE) Urine Glucose (UA) Negativemg/dL (NEGATIVE) Urine Ketones Negativemg/dL (NEGATIVE) Urine Occult Blood Negative (NEGATIVE) Urine Nitrite Negative (NEGATIVE) Urine Bilirubin Negative (NEGATIVE) Urine Urobilinogen Normalmg/dL (NORMAL) Urine Leukocyte Esterase Negative (NEGATIVE) Urine RBC 0-2/hpf (0-2) Urine WBC 0-5/hpf (0-5) Urine Epithelial Cells Occasional/hpf (NONE-MOD) Urine Crystals None seen (NONE SEEN) Urine Bacteria None/hpf (NONE-FEW) Urine Hyaline Casts None/lpf (NONE) Urine Granular Casts None seen (NONE SEEN) Urine Waxy Casts None seen (NONE SEEN) Urine Red Blood Cell Casts None seen (NONE SEEN) Urine White Blood Cell Casts None seen (NONE SEEN) Urine Mucus None seen (None Seen) Urine Trichomonas None seen (NONE SEEN) Urine Yeast None (NONE SEEN) Urinalysis Comment None Urine Culture Reflexed Not indicated Result Diagram: 03/09/17 0850 03/09/17 0850 X-Rays, CTs and MRIs PROCEDURE: X-RAY CHEST ONE VIEW, PORTABLE ([id number]) INDICATIONS: dyspnea and abdominal pain TECHNIQUE: One view of the chest was acquired. COMPARISON: [facility], CT, CT ABD PELVIS W CON, 02/27/2017, 10:29. FINDINGS: Surgical changes and devices: None. Lungs and pleura: No pleural effusions or pneumothorax. Lungs are abnormal with pulmonary hyperexpansion and a new finding of what appears to be mild or early pneumonia at each lung base, greater on the right than the left. This is in reference to the lower portion of the chest included on a recent abdomen/ pelvis CT scan from 02/27/17. Mediastinum: Mediastinal contours appear normal. Heart size is normal. Bones and chest wall: No suspicious bony lesions. Overlying soft tissues appear unremarkable. IMPRESSION: There is a new bi-basilar pneumonia pattern, right greater than left. Superimposed COPD. Dictated by: Carson Vance M.D. on 03/09/2017 at 9:23 Approved by: Carson Vance M.D. on 03/09/2017 at 9:24 12-lead ECG Sinus at a rate of 78 QTC is 445 poor R-wave progression across precordium isolated PVC noted Assessment & Plan # Acute congestive heart failure, present on admission -Not clear if systolic versus diastolic -Check echocardiogram -Start lisinopril, IV Lasix -Nitro paste topically -Will not give aspirin given his pancytopenia -Check serial troponins -Recheck BMP # Myeloproliferative disorder with mild low fibrosis, present on admission -Further directions per oncologist #Recent bilateral adrenal hemorrhage secondary to warfarin therapy, present on admission -We will go ahead and continue with hydrocortisone therapy and titrate slowly down #Essential hypertension, present on admission -Continue with lisinopril and monitor blood pressure #DVT prophylaxis -Use SCDs avoid subcutaneous anticoagulation given his thrombocytopenia #CODE STATUS -Full code Pain Evaluation: Adequate Pain Control VTE Prophylaxis Indicated: Contraindicated VTE Prophylaxis: SCDs Time spent 60 minutes Estela Gandara MD Mar 09, 2017 17:50
[2017-03-09] MEDS: Nitroglycerin 2% 1 Gm Ointment TOPICAL SCH ×2 (18:28→23:56)
[2017-03-09 18:49] LABS: INR 1.03 ratio
[2017-03-09 18:55] LABS: Magnesium 1.8 mg/dL (1.6-2.6)
[2017-03-09 19:15] LABS: TROPONIN T < 0.010 ug/L (0.0-0.011)
--- NOTE | 2017-03-09 20:25 | DRSVH ---
PROCEDURE: US ABDOMEN INDICATIONS: abdominal pain, ? gallbladder TECHNIQUE: Real-time scanning was performed of the abdominal and retroperitoneal organs, with image documentatio n. COMPARISON: [facility], CT, CT ABD PELVIS W CON, 02/27/2017, 10:29. FINDINGS: Liver length: 17.11 cm Gallbladder Wall Thickness: 2.20 mm CBD: 2 mm Spleen length: 19.29 cm Right kidney length: 11.51 cm Left kidney length: 11.71 cm Aorta(Proximal): 2.39 cm Aorta(Mid): 1.72 cm Aorta(Distal): 2.02 cm RCIA: 1.23 cm LCIA: 1.24 cm Liver: Liver is normal in size and homogeneous in echotexture. Gallbladder: Patient is nonfasting and the gallbladder is suboptimally visualized as it is contracted . Biliary ducts: Intrahepatic bile ducts are non-dilated. Extrahepatic bile duct caliber is normal. Normal is 6-7 mm or less in diameter, or 10 mm or less post-cholecystectomy. Pancreas: Visualized portions of the pancreas are sonographically normal. Spleen: Spleen is enlarged in size and homogeneous in echotexture. Kidneys: Kidneys are normal in size and echotexture. No hydronephrosis or nephrolithiasis. No julio d masses. Bilateral adrenal gland hematoma is redemonstrated measuring up to 5.4 cm on the right and 5.1 cm on the left. Aorta: Visualized aorta is normal in caliber at less than 3 cm. Iliacs: Proximal common iliac arteries are normal in caliber at less than 2.5 cm. IVC: Intrahepatic inferior vena cava is patent. Miscellaneous: No free abdominal fluid. Small bilateral pleural effusions redemonstrated. IMPRESSION: 1. Gallbladder is suboptimally visualized as the patient is nonfasting and the gallbladder is contrac trish. If indicated limited repeat ultrasound of the gallbladder could be performed after the patient has been fasting between 8 and 10 hours. 2. Bilateral adrenal hematomas redemonstrated. 3. Small bilateral pleural effusions redemonstrated. 4. Sonographic splenomegaly. Dictated by: Pj CUMMINGS Interpreted: Triny Granados MD on 03/09/2017 at 14:05 Approved by: Triny Granados M.D. on 03/09/2017 at 20:23
[2017-03-09] MEDS: Furosemide 10 mg/mL 4 mL Inj IVPUSH SCH (20:45)
[2017-03-09] MEDS: Sodium Chloride LOK Flush 10 mL Syringe IVFLUSH SCH (23:49)
[2017-03-10 05:58] VITALS: PULSE 82
[2017-03-10 06:00] VITALS: BP 144/74; PULSE 77; RESP 17; O2SAT 99
--- NOTE | 2017-03-10 06:08 | NUR ---
Shift Note assumed pt care at 1900, pt a/o x4, ambulated multiple times around unit medrano, pt denies any chest pain/discomfort throughout night, noted multiple lumps on bilateral arms, reddened and raised,instructed pt on no caffeine prior to scheduled echo today, call light in reach at all times.
[2017-03-10 06:43] LABS: BASOPHILS % (AUTO) 4.8 % (0-3); EOSINOPHILS % (AUTO) 3.2 % (0-5); MONOCYTES % (AUTO) 18.2 % (4-12); Mean Corpuscular Hemoglobin 32.1 pg (27.0-35.0); Mean Corpuscular Volume 100.4 fL (81-100); Platelet Count 48 bil/L (150-400)
[2017-03-10 07:17] LABS: Phosphorus 4.5 mg/dL (2.5-4.9)
[2017-03-10 08:00] VITALS: PULSE 87
[2017-03-10 08:11] LABS: Vitamin B12 >1999 pg/mL (211-946)
[2017-03-10] MEDS: Furosemide 10 mg/mL 4 mL Inj IVPUSH SCH ×2 (09:13→21:00)
[2017-03-10] MEDS: Sodium Chloride LOK Flush 10 mL Syringe IVFLUSH SCH ×2 (09:13→17:27)
[2017-03-10] MEDS: Nitroglycerin 2% 1 Gm Ointment TOPICAL SCH ×2 (09:14→11:40)
[2017-03-10 09:18] VITALS: BP 171/80; PULSE 85; RESP 18; O2SAT 96
--- NOTE | 2017-03-10 12:39 | PCM.PNMED ---
Subjective Date of Service Mar 10, 2017 Subjective Patient does have what appears to be hematoma on his left lower forearm after having a blood pressure taken there. He does not complaining of breathing at this point. He does notice he has been urinating a lot. Exam Vital Signs Vital Sign - Last Date Time Temp Pulse Resp B/P Pulse Ox O2 Delivery O2 Flow Rate FiO2 03/10/17 09:18 36.6 85 18 171/80 96 Room Air Intake and Output 03/09/17 03/09/17 03/10/17 Cumulative From/Thru 15:00 23:00 07:00 03/09/17 08:21 - 03/10/17 06:08 Intake Total 350 ml 700 ml 200 ml 1250 ml Output Total 2350 ml 800 ml 3250 ml 6400 ml Balance -2000 ml -100 ml -3050 ml -5150 ml Intake Oral 300 ml 200 ml 500 ml IV Total 350 ml 400 ml 750 ml Output Urine Total 2350 ml 800 ml 3250 ml 6400 ml # Voids 4 4 Exam Constitutional: Middle-aged male in no acute distress Head: Normocephalic atraumatic Chest: Clear to auscultation Cor: Regular rate and rhythm S1-S2 without murmur Abdomen: Soft nontender bowel sounds present Extremities: 1+ bilateral lower extremity edema Skin: He does have some redness and elevation in over the left lower forearm area but it is over a point and does not extend distally or proximally Neuro: Alert and oriented 3, motor strength is intact bilaterally Lab and Diagnostics Laboratory Tests 72 Hours Test 03/09/17 08:50 03/09/17 12:36 03/09/17 18:10 03/10/17 01:15 White Blood Count 5.3th/mm3 (3.8-10.1) Red Blood Count 2.84mil/mm3 (4.40-5.80) Hemoglobin 9.4g/dL (13.8-17.2) Hematocrit 28.7% (41.0-50.0) Mean Corpuscular Volume 101.1fL (81-100) Mean Corpuscular Hemoglobin 33.1pg (27.0-35.0) Mean Corpuscular Hemoglobin Concent 32.8% (32.0-37.0) Red Cell Distribution Width 19.3% (12.3-15.4) Platelet Count 55bil/L (150-400) Neutrophils (%) (Auto) 46% (40-74) Lymphocytes (%) (Auto) 29% (14-46) Monocytes (%) (Auto) 6% (4-12) Eosinophils (%) (Auto) 1% (0-5) Basophils (%) (Auto) 2% (0-3) Band Neutrophils % 10% (1-5) Metamyelocytes % 4% (0-0) Blast Cells % 2% (0-0) Nucleated Red Blood Cells 4/100 WBC (0-24) Sodium Level 139mEq/L (134-144) Potassium Level 3.7mEq/L (3.5-5.2) Chloride Level 100mEq/L (97-108) Carbon Dioxide Level 23mmol/L (18-29) Blood Urea Nitrogen 13mg/dL (8-27) Creatinine 0.73mg/dL (0.76-1.27) Estimat Glomerular Filtration Rate 116mL/min (>59) Glucose Level 187mg/dL (60-99) Hemoglobin A1c 6.3% (4.8-5.6) Calcium Level 8.6mg/dL (8.5-10.1) Magnesium Level 1.8mg/dL (1.6-2.6) 1.8mg/dL (1.6-2.6) Total Bilirubin 0.7mg/dL (0.0-1.2) Aspartate Amino Transf (AST/SGOT) 22U/L (0-50) Alanine Aminotransferase (ALT/SGPT) 63U/L (0-44) Alkaline Phosphatase 197U/L (25-160) Troponin T 0.010ug/L (0.0-0.011) < 0.010ug/L (0.0-0.011) 0.010ug/L (0.0-0.011) Pro-B-Type Natriuretic Peptide 4919pg/mL (0-210) Total Protein 6.1g/dL (6.4-8.4) Albumin 3.4g/dL (3.4-5.0) Lipase 12U/L (13-60) Hold Beltre Top Tube Received (Received) Urine Color Straw (YELLOW) Urine Appearance Clear (CLEAR,HAZY) Urine pH 7.0 (5.0-8.0) Urine Specific [place] 1.015 (1.003-1.035) Urine Protein Negativemg/dL (NEG,TRACE) Urine Glucose (UA) Negativemg/dL (NEGATIVE) Urine Ketones Negativemg/dL (NEGATIVE) Urine Occult Blood Negative (NEGATIVE) Urine Nitrite Negative (NEGATIVE) Urine Bilirubin Negative (NEGATIVE) Urine Urobilinogen Normalmg/dL (NORMAL) Urine Leukocyte Esterase Negative (NEGATIVE) Urine RBC 0-2/hpf (0-2) Urine WBC 0-5/hpf (0-5) Urine Epithelial Cells Occasional/hpf (NONE-MOD) Urine Crystals None seen (NONE SEEN) Urine Bacteria None/hpf (NONE-FEW) Urine Hyaline Casts None/lpf (NONE) Urine Granular Casts None seen (NONE SEEN) Urine Waxy Casts None seen (NONE SEEN) Urine Red Blood Cell Casts None seen (NONE SEEN) Urine White Blood Cell Casts None seen (NONE SEEN) Urine Mucus None seen (None Seen) Urine Trichomonas None seen (NONE SEEN) Urine Yeast None (NONE SEEN) Urinalysis Comment None Urine Culture Reflexed Not indicated Prothrombin Time 11.0sec (8.1-12.5) Prothromb Time International Ratio 1.03ratio Activated Partial Thromboplast Time 24.7sec (22.8-33.0) Uric Acid 4.4mg/dL (2.6-7.2) Prealbumin 26mg/dL (20-40) Vitamin B12 Level >1999pg/mL (211-946) Folate 18.4ng/mL (>3.0) Thyroid Stimulating Hormone (TSH) 2.220uIU/mL (0.450-4.500) Test 03/10/17 06:05 03/10/17 10:13 White Blood Count 5.4th/mm3 (3.8-10.1) Red Blood Count 2.77mil/mm3 (4.40-5.80) Hemoglobin 8.9g/dL (13.8-17.2) Hematocrit 27.8% (41.0-50.0) Mean Corpuscular Volume 100.4fL (81-100) Mean Corpuscular Hemoglobin 32.1pg (27.0-35.0) Mean Corpuscular Hemoglobin Concent 32.0% (32.0-37.0) Red Cell Distribution Width 19.3% (12.3-15.4) Platelet Count 48bil/L (150-400) Neutrophils (%) (Auto) 28.0% (40-74) Lymphocytes (%) (Auto) 32.4% (14-46) Monocytes (%) (Auto) 18.2% (4-12) Eosinophils (%) (Auto) 3.2% (0-5) Basophils (%) (Auto) 4.8% (0-3) Sodium Level 143mEq/L (134-144) Potassium Level 3.6mEq/L (3.5-5.2) Chloride Level 103mEq/L (97-108) Carbon Dioxide Level 26mmol/L (18-29) Blood Urea Nitrogen 18mg/dL (8-27) Creatinine 0.84mg/dL (0.76-1.27) Estimat Glomerular Filtration Rate 98mL/min (>59) Glucose Level 93mg/dL (60-99) Calcium Level 8.4mg/dL (8.5-10.1) Phosphorus Level 4.5mg/dL (2.5-4.9) Total Bilirubin 0.8mg/dL (0.0-1.2) Aspartate Amino Transf (AST/SGOT) 17U/L (0-50) Alanine Aminotransferase (ALT/SGPT) 49U/L (0-44) Alkaline Phosphatase 187U/L (25-160) Pro-B-Type Natriuretic Peptide 6036pg/mL (0-210) Total Protein 5.4g/dL (6.4-8.4) Albumin 3.4g/dL (3.4-5.0) Triglycerides Level 122mg/dL (0-149) Cholesterol Level 139mg/dL (100-199) LDL Cholesterol, Calculated 72.600mg/dL (0-99) VLDL Cholesterol 24.400mg/dL HDL Cholesterol 42mg/dL (>39) Cholesterol/HDL Ratio 3.31 (0.0-4.4) Procalcitonin 0.31ng/mL (0.00-0.08) Troponin T 0.010ug/L (0.0-0.011) Result Diagram: 03/10/1760403/10/17604 X-Rays, CTs and MRIs PROCEDURE: X-RAY CHEST ONE VIEW, PORTABLE ([id number]) INDICATIONS: dyspnea and abdominal pain TECHNIQUE: One view of the chest was acquired. COMPARISON: [facility], CT, CT ABD PELVIS W CON, 02/27/2017, 10:29. FINDINGS: Surgical changes and devices: None. Lungs and pleura: No pleural effusions or pneumothorax. Lungs are abnormal with pulmonary hyperexpansion and a new finding of what appears to be mild or early pneumonia at each lung base, greater on the right than the left. This is in reference to the lower portion of the chest included on a recent abdomen/ pelvis CT scan from 02/27/17. Mediastinum: Mediastinal contours appear normal. Heart size is normal. Bones and chest wall: No suspicious bony lesions. Overlying soft tissues appear unremarkable. IMPRESSION: There is a new bi-basilar pneumonia pattern, right greater than left. Superimposed COPD. Dictated by: Carson Vance M.D. on 03/09/2017 at 9:23 Approved by: Carson Vance M.D. on 03/09/2017 at 9:24 12-lead ECG Sinus at a rate of 78 QTC is 445 poor R-wave progression across precordium isolated PVC noted Assessment & Plan # Acute congestive heart failure, present on admission -Not clear if systolic versus diastolic -Check echocardiogram -Start lisinopril, IV Lasix -Patient has had a fairly good diuresis to current IV Lasix dosing so will continue. -Nitro paste topically -Will not give aspirin given his pancytopenia -Check serial troponins -Recheck BMP # Myeloproliferative disorder with mild low fibrosis, present on admission -Further directions per oncologist #Recent bilateral adrenal hemorrhage secondary to warfarin therapy, present on admission -We will go ahead and continue with hydrocortisone therapy and titrate slowly down #Essential hypertension, present on admission -Continue with lisinopril and monitor blood pressure #DVT prophylaxis -Use SCDs avoid subcutaneous anticoagulation given his thrombocytopenia #CODE STATUS -Full code VTE Prophylaxis: SCDs VTE Mechanical Devices: Intermittant Pneumatic CD Time spent 30 minutes Estela Gandara MD Mar 10, 2017 12:39
[2017-03-10 15:05] LABS: Magnesium 1.7 mg/dL (1.6-2.6)
[2017-03-10 15:14] VITALS: BP 148/73; PULSE 82; RESP 18; O2SAT 95
--- NOTE | 2017-03-10 16:51 | NUR ---
Social Work: Initial Assessment Data: See initial assessment. Patient is a 61 year old male who was admitted on 03/09/2017 for CHF / Bilateral Pneumonia per H&P. Patient's insurance is Medicare and his PCP is Jarrell Gonzalez MD. EMR reviewed. SW met with patient to discuss discharge planning. SW role explained. Patient states that he resides with his significant other Nasrin in a home located in [place]. Patient states that he is I at baseline with all ADLs and care needs. Patient considers his SO to be his main source of support. Patient states that he drives via [place]. Patient denies having a hx of home health services or SNF. Patient denies having group home care insurance or VA benefits. Upon discharge, patient states that Nasrin will assist with transportation home. SW provided patient with a discharge planning checklist booklet and encouraged to call with any questions or concerns. Phone number provided. SW will continue to follow for needs. Assessment: Patient resides at home with his SO. He is I at baseline. Upon discharge, patient will return home likely with no needs. Plan: Patient will discharge home with SO. Transportation will be provided by SO. SW will continue to follow. ALISE Lawler Addendum: 03/10/17 at 1707 by MARISA RED Amended: Links added.
--- NOTE | 2017-03-10 17:34 | NUR ---
Headache Patient given Tylenol 650 mg for headache but not resolving at this time. Dr. Gandara aware, nitroglycerin cream discontinued. Patient given ice packs, room dimmed and provided a quiet environment. Patient also expresses concerns of his diagnosis, [facility] Clinical Aide spent time discussing with patient, content of the information given to him. Will continue to monitor.
--- NOTE | 2017-03-10 17:48 | DRSVH ---
[facility] [address] [place] [address] Echocardiogram Report Name: TRISTAN CAZARES NStudy Date : 03/10/2017 Height: 74 in Hospital Exam Location: [facility] Weight: 185 lb Gender: Male BSA: 2.1 m2 : 1955 Age: 61 yrs BP: 144/74 mm Hg Reason For Study: Heart Failure Ordering Physician: HOSPITALIST [facility] Performed By: Bernarda Starr Referring Physician: Xavier Stuart Interpretation Summary The left ventricle is mild-moderately dilated. The ejection fraction is estimated to be 35-40%. Compared to the prior exam, left ventricular function is slightly improved. The right ventricle is normal size. Right ventricular size has decreased since the prior echo exam. The right ventricular systolic function is normal. This is improved compared to the previous study. No significant valvular pathology seen. Echo-free space posterior to IVC, possible small right pleural effusion with exudates (New). Procedure: A two-dimensional transthoracic echocardiogram with color flow and Doppler was performed. The study quality was technically good. Comparison is made with the echocardiogram of 12/14/2016. The patient was in normal sinus rhythm during the exam. Left Ventricle: The left ventricle is mild-moderately dilated. Left ventricular wall thickness is mildly increased. No apical thrombus identified. The ejection fraction is estimated to be 35-40%. Compared to the prior exam, left ventricular function is slightly improved. There is moderate to severe global hypokinesis of the left ventricle. Mid septum severely hypokinetic. E/A ratio is reversed. Right Ventricle: The right ventricle is normal size. Right ventricular size has decreased since the prior echo exam. The right ventricular systolic function is normal. This is improved compared to the previous study. Atria: The left atrium is moderately dilated. The left atrium has mildly increased in size since the prior echo exam. The right atrium is normal in size. The interatrial septum is intact with no evidence for an atrial septal defect. Mitral Valve: The mitral valve leaflets appear mildly thickened, but open well. There is trace mitral regurgitation. There has been no significant change since the previous study. Aortic Valve: The aortic valve is trileaflet. The aortic valve opens well. There is no aortic valve stenosis. No aortic regurgitation is present. Tricuspid Valve: The tricuspid valve is normal in structure and function. There is trace tricuspid regurgitation. The right ventricular systolic pressure is estimated at 28 mmHg assuming a right atrial pressure of 3 mm Hg. Compared to the prior echo exam, there has been no change in TR severity. Pulmonic Valve: The pulmonic valve is not well seen, but is grossly normal. There is trace pulmonic regurgitation. Great Vessels: The aortic root is mildly dilated. The ascending aorta is mildly enlarged. There has been no significant change since the previous study. The IVC is of normal diameter and collapses greater than 50% with a sniff. This suggests a low right atrial pressure of 3 mm Hg. Pericardium/ Pleura There is a trivial pericardial effusion noted. There is an anterior echo-free space consistent with a fat pad. There are no echocardiographic indications of cardiac tamponade. Echo-free space posterior to IVC, possible small right pleural effusion with exudates. MMode/2D Measurements & Calculations LVIDd: 6.2 cm LVIDs: 4.9 cm LA A2 area: 25.3 cm FS: 21.7 % LA A4 area: 25.6 cm IVSd: 1.1 cm LA length (vol): 6.0 cm LVPWd: 1.3 cm LA vol: 91.6 ml LA vol index: 43.6 ml/m2 RA long axis: 5.7 cm LVOT diam: 2.6 cm RA area: 18.0 cm Ao root diam: 4.2 cm RA vol: 48.4 ml asc Aorta Diam: 3.9 cm RA : 23.0 ml/m2 LV page. diameter/BSA (cm/m^2): 3.0 LV sys. diameter/BSA (cm/m^2): 2.3 TAPSE: 2.6 cm Doppler Measurements & Calculations Ao V2 max: 162.1 cm/sec MV E max bao: 62.5 cm/sec Ao max P.5 mmHg MV A max bao: 76.7 cm/sec Ao mean P.7 mmHg LVOT Max Bao: 138.6 cm/sec HUSEYIN(I,D): 4.6 cm sev ratio: 0.89 MV E/A: 0.82 TR max bao: 252.2 cm/sec TR max P.5 mmHg PA V2 max: 99.3 cm/sec PA mean P.3 mmHg MV dec time: 0.14 sec Ao V2 mean: 112.9 cm/sec Ao V2 VTI: 30.9 cm HUSEYIN(V,D): 4.4 cm2 LV V1 max P.7 mmHg PA V2 mean: 72.7 cm/sec LV V1 VTI: 27.4 cm PA pr(Accel): 32.4 mmHg HUSEYIN indexed to BSA (cm^2/m^2): 2.2 Reading Physician:HARRIET
[2017-03-10 20:55] VITALS: BP 127/66; PULSE 95; RESP 18; O2SAT 96
[2017-03-11] MEDS: Sodium Chloride LOK Flush 10 mL Syringe IVFLUSH SCH ×2 (01:32→08:29)
[2017-03-11 05:36] VITALS: PULSE 81
[2017-03-11 06:04] VITALS: BP 152/80; PULSE 86; RESP 18; O2SAT 96
--- NOTE | 2017-03-11 06:30 | NUR ---
Shift note Patient very uncomfortable through most on night r/t "bed being hard on back" and freq urination r/t Lasix gave Tylenol and eventually was able to sleep "an hour my norm"
[2017-03-11 07:20] LABS: Magnesium 1.7 mg/dL (1.6-2.6)
[2017-03-11 08:00] VITALS: PULSE 95
[2017-03-11 08:20] VITALS: BP 148/95; PULSE 93
[2017-03-11] MEDS: Furosemide 10 mg/mL 4 mL Inj IVPUSH SCH (08:29)
[2017-03-11] MEDS ORDERED: Hydrocortisone 125 mg/mL 2 mL Inj IVPUSH SCH (08:30)
[2017-03-11 09:15] VITALS: BP 161/80; PULSE 96; RESP 14; O2SAT 96
[2017-03-11 09:18] VITALS: BP 179/135; PULSE 95
[2017-03-11] MEDS ORDERED: Hydrocortisone 50 mg/mL 2 mL Inj IVPUSH SCH (09:20)
--- NOTE | 2017-03-11 11:07 | NUR ---
Rounds MD notified of pt c/o lower back pain 01/03 overnight and this am semi relieved with tylenol. No ROM issues or noted hematoma. Denies SOB or CP with good UOP with IV diuretics. Md to see pt and assess needs/progress.
--- NOTE | 2017-03-11 11:22 | PCM.DICHF ---
CHF Discharge Instructions Date of Service: Mar 11, 2017 Dates of Hospitalization Date of Hospital Admission Mar 09, 2017 at 13:01 Date of Discharge: Mar 11, 2017 Providers Admitting Physician: Estela Gandara MD Primary Care Physician: Jarrell Gonzalez MD Attending Physician: Estela Gandara MD Diagnosis at Time of Discharge Diagnosis at time of discharge Acute on chronic sytolic heart failure,myelofibrosis Problems: Labs Ejection Fraction Laboratory Tests Test Range/Units 03/09/17 08:50 03/09/17 18:10 03/10/17 06:05 03/10/17 17:01 Hemoglobin A1c 4.8-5.6 % 6.3 Lipase 13-60 U/L 12 Hold Beltre Top Tube Received Received Uric Acid 2.6-7.2 mg/dL 4.4 Prealbumin 20-40 mg/dL 26 Vitamin B12 Level 211-946 pg/mL >1998 Folate >3.0 ng/mL 18.4 Thyroid Stimulating Hormone (TSH) 0.450-4.500 uIU/mL 2.220 Phosphorus Level 2.5-4.9 mg/dL 4.5 Total Bilirubin 0.0-1.2 mg/dL 0.8 Aspartate Amino Transf (AST/SGOT) 0-50 U/L 17 Alanine Aminotransferase (ALT/SGPT) 0-44 U/L 49 Alkaline Phosphatase 25-160 U/L 187 Pro-B-Type Natriuretic Peptide 0-210 pg/mL 6036 Total Protein 6.4-8.4 g/dL 5.4 Albumin 3.4-5.0 g/dL 3.4 Triglycerides Level 0-149 mg/dL 122 Cholesterol Level 100-199 mg/dL 139 LDL Cholesterol, Calculated 0-99 mg/dL 72.600 VLDL Cholesterol mg/dL 24.400 HDL Cholesterol >39 mg/dL 42 Cholesterol/HDL Ratio 0.0-4.4 3.31 Procalcitonin 0.00-0.08 ng/mL 0.31 Troponin T 0.0-0.011 ug/L < 0.010 Test Range/Units 03/11/17 06:15 Sodium Level 134-144 mEq/L 137 Potassium Level 3.5-5.2 mEq/L 3.8 Chloride Level 97-108 mEq/L 97 Carbon Dioxide Level 18-29 mmol/L 24 Blood Urea Nitrogen 8-27 mg/dL 21 Creatinine 0.76-1.27 mg/dL 0.83 Estimat Glomerular Filtration Rate >59 mL/min 100 Glucose Level 60-99 mg/dL 98 Calcium Level 8.5-10.1 mg/dL 8.6 Magnesium Level 1.6-2.6 mg/dL 1.7 Discharge Medications Other Medication Instructions You have received instructions on the medications your physician has prescribed at discharge. A list of these medications has been provided to you. Keep this and a list of all current medications with you. Keep the dates when you received the Flu and Pneumococcal (Pneumonia) Vaccines. Last known date of receiving Flu Vaccine DENTAL OFFICER Last known date of receiving Pneumococcal (Pneumonia) Vaccine Diet CHF Discharge Diet: Low fat, Low Sodium Diet Instructions CHF Low Salt diet ( 2 grams or less sodium/day) Choose foods and drinks with low or no salt. Remove salt shaker from the table. Read Nutritional Facts labels. Activity CHF Discharge Activity: Try not to overdue, Balance rest and activity, Activity as energy allows, Stop when short breath/pain/dizzy Weight Monitoring 1. Weigh yourself every day at the same time and write it down. 2. Take your weight log to your doctor visits. 3. Call your doctor if you gain 3-5 pounds over 2-3 days. 4. Your weight today is 173.50 lbs. Additional Instructions CHF Teaching Packet given and: Yes Smoking--Tobacco Use If you smoke, you are strongly encouraged to stop. If you have recently quit smoking, CONGRATULATIONS. For further information to stop smoking or to remain smoke-free, Follow Up Plan Follow Up Plan Dr. Carlos Gonzalez Follow Up: Days (4-5 days,sooner if problems.) Report or call your Doctor REPORT TO YOUR DOCTOR OR SEEK MEDICAL ATTENTION: *Shortness of breath or have more difficulty breathing. *Swelling of your feet, ankles, hands or abdomen. *Feeling tired with normal activity or experiencing dizziness or fainting. *Trouble sleeping or waking up feeling short of breath or coughing. *Chest pain or pressure. *Weight gain of 3-5 pounds over 2-3 days. *Inability to take medications or follow treatment plan Heart Attach warning signs HEART ATTACK WARNING SIGNS * Chest discomfort. *Discomfort or pain in one or both arms, back, neck, jaw or stomach. *Shortness of breath. *Breaking out in a cold sweat, nausea, or lightheadedness. If you're having heart attack warning signs: CALL . DON'T WAIT MORE THAN A FEW MINUTES - 5 MINUTES AT MOST - TO CALL . Estela Gandara MD Mar 11, 2017 11:21
[2017-03-11] MEDS ORDERED: FURO40TA4 PO (11:25)
--- NOTE | 2017-03-11 11:25 | NUR ---
Social Work: Discharge / KAITLYN Data: EMR reviewed. Patient is on day 2 of hospitalization for CHF and bilateral pneumonia per H&P. Patient was discussed in morning rounds. Patient has been deemed medically stable for discharge today per MD. Transportation has been arranged by patient. Patient will be transported home by significant other. SW visited patient this morning to obtain signature for KAITLYN. KAITLYN has been signed by patient. Patient has no additional needs at this time. Assessment: Patient to discharge home. Plan: Patient will discharge home today. Transportation will be provided by significant other. Patient has no additional needs at this time. ALISE Lawler
--- NOTE | 2017-03-11 11:51 | PCM.DC.MED ---
Discharge Summary Date of Service Mar 11, 2017 Dates of Hospitalization Date of Hospital Admission Mar 09, 2017 at 13:01 Date of Discharge: Mar 11, 2017 Providers: Admitting Physician: Estela Gandara MD Primary Care Physician: Jarrell Gonzalez MD Attending Physician: Estela Gandara MD Diagnosis at Time of Discharge Diagnosis at Time of Discharge Acute on chronic sytolic heart failure,myelofibrosis Procedures XRay, CTs & MRIs PROCEDURE: X-RAY CHEST ONE VIEW, PORTABLE ([id number]) INDICATIONS: dyspnea and abdominal pain TECHNIQUE: One view of the chest was acquired. COMPARISON: [facility], CT, CT ABD PELVIS W CON, 02/27/2017, 10:29. FINDINGS: Surgical changes and devices: None. Lungs and pleura: No pleural effusions or pneumothorax. Lungs are abnormal with pulmonary hyperexpansion and a new finding of what appears to be mild or early pneumonia at each lung base, greater on the right than the left. This is in reference to the lower portion of the chest included on a recent abdomen/ pelvis CT scan from 02/27/17. Mediastinum: Mediastinal contours appear normal. Heart size is normal. Bones and chest wall: No suspicious bony lesions. Overlying soft tissues appear unremarkable. IMPRESSION: There is a new bi-basilar pneumonia pattern, right greater than left. Superimposed COPD. Dictated by: Carson Vance M.D. on 03/09/2017 at 9:23 Approved by: Carson Vance M.D. on 03/09/2017 at 9:24 ECG 12 Lead Sinus at a rate of 78 QTC is 445 poor R-wave progression across precordium isolated PVC noted Cardiac Echo Impression Echocardiogram Report Name: TRISTAN CAZARES NStudy Date : 03/10/2017 Height: 74 in Hospital Exam Location: [facility] Weight: 185 lb Gender: Male BSA: 2.1 m2 : 1955 Age: 61 yrs BP: 144/74 mm Hg Reason For Study: Heart Failure Ordering Physician: HOSPITALIST [facility] Performed By: Bernarda Starr Referring Physician: Xavier Stuart Interpretation Summary The left ventricle is mild-moderately dilated. The ejection fraction is estimated to be 35-40%. Compared to the prior exam, left ventricular function is slightly improved. The right ventricle is normal size. Right ventricular size has decreased since the prior echo exam. The right ventricular systolic function is normal. This is improved compared to the previous study. No significant valvular pathology seen. Echo-free space posterior to IVC, possible small right pleural effusion with exudates (New). Brief History This 61-year-old male who is recently discharged from the hospital on March 01. He was hospitalized then from February 15. He had acute blood loss at that time from an adrenal hemorrhage bilateral and was on anticoagulation therapy at the time. He does have a history of myelofibrosis and is followed by Dr. Nieves. Currently his Coumadin hydroxyurea and aspirin have been held since that discharge. He was on hydrocortisone with titrating slowly down. He does have thrombocytopenia with last platelet count was 40,000 upon discharge on the . Patient notes that over the past week or so since discharge she has had increasing lower extremity edema and shortness of breath. He also finds it difficult to lie flat in bed and is getting progressively worse. He will have to sit up in a chair to try to sleep. He does feel some chest tightness like a band across his lower chest wall area. He has had no prior symptoms similar to this. Hospital Course # Acute on chronic systolic congestive heart failure, present on admission -Echocardiogram did show mildly increased EF 35-40% from previous -Patient has responded quite nicely to IV Lasix 40 mg twice a day and will discharged home on oral Lasix 40 mg twice a day -No aspirin given his pancytopenia from myelofibrosis # Myeloproliferative disorder with mild low fibrosis, present on admission -Further directions per oncologist #Recent bilateral adrenal hemorrhage secondary to warfarin therapy, present on admission -We will go ahead and continue with hydrocortisone therapy and titrate slowly down #Essential hypertension, present on admission -Continue with lisinopril and monitor blood pressure #DVT prophylaxis -Use SCDs avoid subcutaneous anticoagulation given his thrombocytopenia #CODE STATUS -Full code Exam Vital Signs (Last) Date Time Temp Pulse Resp B/P Pulse Ox O2 Delivery O2 Flow Rate FiO2 03/11/17 09:18 95 179/135 03/11/17 09:15 36.5 14 96 Room Air Exam Constitutional: Middle-aged male in no acute distress Head: Normocephalic medical Chest: Clear to auscultation Cor: Regular rate and rhythm S1-S2 Abdomen: Soft nontender bowel sounds present Extremities: Trace bilateral pedal edema Neuro: Alert and oriented 3, motor strength is intact bilaterally Test 03/09/17 08:50 03/09/17 12:36 03/09/17 18:10 03/10/17 06:05 Band Neutrophils % 10% (1-5) Metamyelocytes % 4% (0-0) Blast Cells % 2% (0-0) Nucleated Red Blood Cells 4/100 WBC (0-24) Hemoglobin A1c 6.3% (4.8-5.6) Lipase 12U/L (13-60) Hold Beltre Top Tube Received (Received) Urine Color Straw (YELLOW) Urine Appearance Clear (CLEAR,HAZY) Urine pH 7.0 (5.0-8.0) Urine Specific [place] 1.015 (1.003-1.035) Urine Protein Negativemg/dL (NEG,TRACE) Urine Glucose (UA) Negativemg/dL (NEGATIVE) Urine Ketones Negativemg/dL (NEGATIVE) Urine Occult Blood Negative (NEGATIVE) Urine Nitrite Negative (NEGATIVE) Urine Bilirubin Negative (NEGATIVE) Urine Urobilinogen Normalmg/dL (NORMAL) Urine Leukocyte Esterase Negative (NEGATIVE) Urine RBC 0-2/hpf (0-2) Urine WBC 0-5/hpf (0-5) Urine Epithelial Cells Occasional/hpf (NONE-MOD) Urine Crystals None seen (NONE SEEN) Urine Bacteria None/hpf (NONE-FEW) Urine Hyaline Casts None/lpf (NONE) Urine Granular Casts None seen (NONE SEEN) Urine Waxy Casts None seen (NONE SEEN) Urine Red Blood Cell Casts None seen (NONE SEEN) Urine White Blood Cell Casts None seen (NONE SEEN) Urine Mucus None seen (None Seen) Urine Trichomonas None seen (NONE SEEN) Urine Yeast None (NONE SEEN) Urinalysis Comment None Urine Culture Reflexed Not indicated Prothrombin Time 11.0sec (8.1-12.5) Prothromb Time International Ratio 1.03ratio Activated Partial Thromboplast Time 24.7sec (22.8-33.0) Uric Acid 4.4mg/dL (2.6-7.2) Prealbumin 26mg/dL (20-40) Vitamin B12 Level >1999pg/mL (211-946) Folate 18.4ng/mL (>3.0) Thyroid Stimulating Hormone (TSH) 2.220uIU/mL (0.450-4.500) White Blood Count 5.4th/mm3 (3.8-10.1) Red Blood Count 2.77mil/mm3 (4.40-5.80) Hemoglobin 8.9g/dL (13.8-17.2) Hematocrit 27.8% (41.0-50.0) Mean Corpuscular Volume 100.4fL (81-100) Mean Corpuscular Hemoglobin 32.1pg (27.0-35.0) Mean Corpuscular Hemoglobin Concent 32.0% (32.0-37.0) Red Cell Distribution Width 19.3% (12.3-15.4) Platelet Count 48bil/L (150-400) Neutrophils (%) (Auto) 28.0% (40-74) Lymphocytes (%) (Auto) 32.4% (14-46) Monocytes (%) (Auto) 18.2% (4-12) Eosinophils (%) (Auto) 3.2% (0-5) Basophils (%) (Auto) 4.8% (0-3) Phosphorus Level 4.5mg/dL (2.5-4.9) Total Bilirubin 0.8mg/dL (0.0-1.2) Aspartate Amino Transf (AST/SGOT) 17U/L (0-50) Alanine Aminotransferase (ALT/SGPT) 49U/L (0-44) Alkaline Phosphatase 187U/L (25-160) Pro-B-Type Natriuretic Peptide 6036pg/mL (0-210) Total Protein 5.4g/dL (6.4-8.4) Albumin 3.4g/dL (3.4-5.0) Triglycerides Level 122mg/dL (0-149) Cholesterol Level 139mg/dL (100-199) LDL Cholesterol, Calculated 72.600mg/dL (0-99) VLDL Cholesterol 24.400mg/dL HDL Cholesterol 42mg/dL (>39) Cholesterol/HDL Ratio 3.31 (0.0-4.4) Procalcitonin 0.31ng/mL (0.00-0.08) Test 03/10/17 17:01 03/11/17 06:15 Troponin T < 0.010ug/L (0.0-0.011) Sodium Level 137mEq/L (134-144) Potassium Level 3.8mEq/L (3.5-5.2) Chloride Level 97mEq/L (97-108) Carbon Dioxide Level 24mmol/L (18-29) Blood Urea Nitrogen 21mg/dL (8-27) Creatinine 0.83mg/dL (0.76-1.27) Estimat Glomerular Filtration Rate 100mL/min (>59) Glucose Level 98mg/dL (60-99) Calcium Level 8.6mg/dL (8.5-10.1) Magnesium Level 1.7mg/dL (1.6-2.6) Discharge Medications Discharge Medications Atorvastatin (Lipitor) 40 Mg Tablet 40 MG PO HS (Reported) Furosemide (Furosemide) 40 Mg Tablet 40 MG PO BID Prescribed by: ESTELA GANDARA MD Hydrocortisone (Hydrocortisone) 10 Mg Tablet 50 MG PO Q6H Prescribed by: CHRIS PENA MD Lisinopril (Lisinopril) 20 Mg Tablet 20 MG PO DAILY Prescribed by: JORDY ABREU DO Metoprolol Tartrate (Metoprolol Tartrate) 50 Mg Tablet 50 MG PO BID (Reported) Multivits-Min/FA/Lycopene/Lut (Centrum Silver Tablet) 1 Each Tablet 1 TABLET PO DAILY (Reported) Vit B Comp/C/FA/Iron/Vit E (Vitamin B Complex Tablet) 1 Each Tablet 1 TABLET PO DAILY (Reported) Followup Plan Follow-up plan Dr. Carlos Gonzalez Discharge Diet: Low fat, Low Sodium Time spent 45 minutes copies to: Jarrell Gonzalez MD, Cheryl A MD Mar 11, 2017 11:51
--- NOTE | 2017-03-11 13:07 | NUR ---
DC Pt dc'd ambulatory with brother at 1240 w/o concerns or complications. All discharge paperwork and instructions reviewed and pt verbalized understanding of all instructions. All belongings with pt on dc.
== END 2017-03-11 12:40 | disposition home or self-care (01) | DRG 292 ==
LOC: SED 08:11 → MOC 13:01
PROVIDERS: ADMIT Specialist; ATTEND Specialist
DX: I50.23 Acute on chronic systolic (congestive) heart failure (principal); D61.818 Other pancytopenia; D75.81 Myelofibrosis; Z86.73 Personal history of transient ischemic attack (TIA), and cerebral infarction without residual deficits; Z95.5 Presence of coronary angioplasty implant and graft; Z87.891 Personal history of nicotine dependence; I10 Essential (primary) hypertension